=== PATIENT | male | born 1985 | race Caucasian/White ===

== ENCOUNTER 2018-12-22 08:54 | Emergency (ER) | payer SELFPAY ==
[2018-12-22] MEDS ORDERED: NA CHLORIDE 0.9% 1,000 ML ONE ×2 (09:15→09:22)
[2018-12-22] MEDS ORDERED: LORazepam 2 MG/ML VIAL ONE (09:15)
[2018-12-22 09:25] LABS: Absolute Lymphocytes (CBC) 1.5 K/uL (0.7-4.9); Absolute Monocytes 0.7 K/uL (0.1-1.3); Absolute Neutrophil 8.4 K/uL (1.8-8.0); Basophils % 0.4 % (0-1.3); Eosinophils % 0.4 % (0-4.4); Hematocrit 51.9 % (39.6-49.0); Lymphocytes % 14.3 % (15.3-44.8); MPV 8.9 fL (7.6-11.3); Monocytes % 6.9 % (3.3-12.3); RBC Red Blood Cell Count 5.76 M/uL (4.33-5.43)
[2018-12-22 09:28] LABS: Protime INR 1.1
[2018-12-22 09:45] LABS: ALT/SGPT 39 U/L (12-78); AST/SGOT 20 U/L (15-37); Albumin 4.4 g/dL (3.4-5.0); Alkaline Phosphatase 70 U/L (45-117); BUN Blood Urea Nitrogen 12 mg/dL (7-18); Bicarbonate 28 mmol/L (21-32); Bilirubin Direct 0.2 mg/dL (0-0.2); Bilirubin Total 0.8 mg/dL (0.2-1.0); Glucose Level 95 mg/dL (74-106); Potassium 4.1 mmol/L (3.5-5.1); Protein, Total 8.5 g/dL (6.4-8.2); Sodium Level 139 mmol/L (136-145); Troponin (Emerg Dept Use Only) < 0.02 ng/mL (0.0-0.045)
--- NOTE | 2018-12-22 10:46 | ER ---
Nurse's Notes [facility] Name: Subhash Diggs Age: 33 yrs Sex: Male : 1985 Arrival Date: 12/22/2018 Time: 08:57 Bed 16 Private MD: Diagnosis: Adverse effect of amphetamines Presentation: 12/22 08:58 Presenting complaint: EMS states: pt reports using METH at midnight, now complaining of tw2 jitteryness, joint tightness, indigestion, chest pain, pt is tachycardic with diaphoresis off and on. Transition of care: patient was not received from another setting of care. Onset of symptoms was December 22, 2018. Risk Assessment: Do you want to hurt yourself or someone else? Patient reports no desire to harm self or others. Initial Sepsis Screen: Does the patient meet any 2 criteria? RR > 20 per min. No. Patient's initial sepsis screen is negative. Does the patient have a suspected source of infection?. Care prior to arrival: None. 08:58 Method Of Arrival: EMS: [facility] tw2 08:58 Acuity: TRISTON 3 tw2 Historical: - Allergies: 09:02 No Known Allergies; tw2 - Home Meds: 09:02 None [Active]; tw2 - PMHx: 09:02 None; tw2 - PSHx: 09:02 None; tw2 - Immunization history:: Adult Immunizations unknown. - Social history:: Smoking status: Patient uses tobacco products, smokes one pack cigarettes per day. Patient uses alcohol, occasionally. street drugs, marijuana, Methamphetamine (Meth). - Ebola Screening: : Patient denies travel to an Ebola-affected area in the 21 days before illness onset. - Family history:: not pertinent. - Hospitalizations: : No recent hospitalization is reported. Screenin:06 Abuse screen: Denies threats or abuse. Nutritional screening: No deficits noted. tw2 Tuberculosis screening: No symptoms or risk factors identified. Fall Risk None identified. Assessment: 09:00 General: Appears in no apparent distress. obese, Behavior is cooperative, anxious. tw2 Pain: Complains of pain in chest, and joints Pain does not radiate. Pain began "few hours ago". Neuro: Level of Consciousness is awake, alert, obeys commands, Oriented to person, place, situation. Cardiovascular: Reports chest pain, Heart tones S1 S2 Patient's skin is warm and dry. Rhythm is sinus tachycardia. Respiratory: Airway is patent Respiratory effort is even, unlabored, Respiratory pattern is regular, symmetrical, Breath sounds are clear bilaterally. GI: Abdomen is round non-distended, obese, Bowel sounds present X 4 quads. : No signs and/or symptoms were reported regarding the genitourinary system. EENT: No signs and/or symptoms were reported regarding the EENT system. Derm: Skin is diaphoretic. Musculoskeletal: Range of motion: intact in all extremities. 10:03 Reassessment: Patient appears in no apparent distress at this time. Patient and/or tw2 family updated on plan of care and expected duration. Pain level reassessed. Patient is alert, oriented x 3, equal unlabored respirations, skin warm/dry/pink. Patient states feeling better. 10:44 Reassessment: pt wanting to leave, educated, pt pulled his iv out at this time, pts tw2 family taking pt home at this time, provider notified. Vital Signs: 08:59 BP 148 / 91; Pulse 107; Resp 25; Temp 99.5(O); Pulse Ox 97% on R/A; tw2 10:02 BP 119 / 87; Pulse 94; Resp 17; Pulse Ox 97% on R/A; tw2 ED Course: 08:57 Patient arrived in ED. tw2 08:58 Placed in gown. Bed in low position. Side rails up X2. ui ux web developer on. Pulse ox on. tw2 NIBP on. 08:59 Triage completed. tw2 09:00 Patient maintains SpO2 saturation greater than 95% on room air. tw2 09:02 Kaz Bone MD is Attending Physician. rn 09:07 Larisa Alves RN is Primary Nurse. tw2 09:07 Arm band placed on. tw2 09:10 Inserted saline lock: 20 gauge in left antecubital area, using aseptic technique. tw2 ,using aseptic technique. per Caroline Canela Blood collected. Administered Medications: 09:15 Drug: NS 0.9% 1000 ml Route: IV; Rate: 1000 ml; Site: left antecubital; tw2 10:45 Follow up: IV Status: Order to discontinue infusion; IV Intake: 500ml tw2 09:15 Drug: Ativan 1 mg Route: IVP; Site: left antecubital; tw2 10:43 Follow up: Response: No adverse reaction tw2 09:15 Drug: NS 0.9% 1000 ml Route: IV; Rate: 1000 ml; Site: left antecubital; tw2 10:45 Follow up: IV Status: Order to discontinue infusion; IV Intake: 500ml tw2 Intake: 10:45 IV: 500ml; Total: 500ml. tw2 10:45 IV: 500ml; Total: 1000ml. tw2 Outcome: 10:44 AMA AMA form signed 2 10:44 Condition: stable 10:46 Patient left the ED. tw2 Signatures: Kaz Bone MD MD rn Wise, Tara, RN RN tw2
--- NOTE | 2018-12-22 10:47 | EDPHYS ---
Physician Documentation [facility] Name: Subhash Diggs Age: 33 yrs Sex: Male : 1985 Arrival Date: 12/22/2018 Time: 08:57 Bed 16 Private MD: ED Physician Kaz Bone HPI: 12/22 09:07 This 33 yrs old Male presents to ER via EMS with complaints of palpitations. rn 09:07 The patient presents with a history of heart racing. Onset: The symptoms/episode rn began/occurred at 12:00. Duration: The patient or guardian reports a single episode, that is still ongoing. Modifying factors: The symptoms are aggravated by nothing. The symptoms are alleviated by nothing. Severity of symptoms: At their worst the symptoms were mild in the emergency department the symptoms are unchanged. It is unknown whether or not the patient has had similar symptoms in the past. Per EMS report, thought was being pulled over, ingested under a gram of meth, around midnight, and reports heart racing and tremors. Denies other drug use or ingestion, reports has used more than that amount before but not at once. . Historical: - Allergies: 09:02 No Known Allergies; tw2 - Home Meds: 09:02 None [Active]; tw2 - PMHx: 09:02 None; tw2 - PSHx: 09:02 None; tw2 - Immunization history:: Adult Immunizations unknown. - Social history:: Smoking status: Patient uses tobacco products, smokes one pack cigarettes per day. Patient uses alcohol, occasionally. street drugs, marijuana, Methamphetamine (Meth). - Ebola Screening: : Patient denies travel to an Ebola-affected area in the 21 days before illness onset. - Family history:: not pertinent. - Hospitalizations: : No recent hospitalization is reported. ROS: 09:07 Constitutional: Negative for fever, chills, and weight loss, Eyes: Negative for injury, rn pain, redness, and discharge, Cardiovascular: Negative for edema Respiratory: Negative for shortness of breath, cough, wheezing, and pleuritic chest pain, Abdomen/GI: Negative for abdominal pain, nausea, vomiting, diarrhea, and constipation, MS/Extremity: Negative for injury and deformity, Skin: Negative for injury, rash, and discoloration, Neuro: Negative for headache, weakness, numbness, tingling, and seizure. Exam: 09:07 Constitutional: This is a well developed, well nourished patient who is awake, alert, rn agitated, diaphoretic Head/Face: Normocephalic, atraumatic. Eyes: Pupils equal round and reactive to light, extra-ocular motions intact. Lids and lashes normal. Conjunctiva and sclera are non-icteric and not injected. Cornea within normal limits. Periorbital areas with no swelling, redness, or edema. ENT: dry MM Cardiovascular: tachycardic, regular, no murmur Respiratory: Lungs have equal breath sounds bilaterally, clear to auscultation, mild tachypnea, clear Abdomen/GI: Soft, non-tender, with normal bowel sounds. No distension or tympany. No guarding or rebound. No evidence of tenderness throughout. Skin: Warm, diaphoretic MS/ Extremity: Pulses equal, no cyanosis. Neurovascular intact. Full, normal range of motion. Equal circumference. Neuro: Awake and alert, GCS 15, oriented to person, place, time, and situation. Cranial nerves II-XII grossly intact. Motor strength 5/5 in all extremities. Sensory grossly intact. Cerebellar exam normal. 09:13 ECG was reviewed by the Attending Physician. rn Vital Signs: 08:59 BP 148 / 91; Pulse 107; Resp 25; Temp 99.5(O); Pulse Ox 97% on R/A; tw2 10:02 BP 119 / 87; Pulse 94; Resp 17; Pulse Ox 97% on R/A; tw2 MDM: 09:02 Patient medically screened. rn 10:18 ED course: pt feels much better, advised further observation, he is trying to leave. . rn 10:44 Differential diagnosis: dehydration, stimulant abuse/ingestion. Data reviewed: vital rn signs, nurses notes, lab test result(s), EKG, and as a result, I will continue to observe the patient. Counseling: I had a detailed discussion with the patient and/or guardian regarding: the historical points, exam findings, and any diagnostic results supporting the discharge/admit diagnosis, lab results. Response to treatment: the patient's condition has returned to base line, the patient is now symptom free. ED course: Pt refuses continued observation, states feels fine, no longer diaphoretic, normal vitals, walked out because did not agree with plan.. 12/22 09:02 Order name: Acetaminophen rn 12/22 09:02 Order name: Basic Metabolic Panel rn 12/22 09:02 Order name: CBC with Diff; Complete Time: 09:43 rn 12/22 09:02 Order name: Hepatic Function rn 12/22 09:02 Order name: PT-INR; Complete Time: 09:43 rn 12/22 09:02 Order name: Salicylate; Complete Time: 09:43 rn 12/22 09:02 Order name: Urine Drug Screen rn 12/22 09:02 Order name: EKG; Complete Time: 09:03 rn 12/22 09:04 Order name: Troponin (emerg Dept Use Only) rn 12/22 10:44 Order name: Urine Dipstick--Ancillary (enter results) 12/22 09:02 Order name: EKG - Nurse/Tech; Complete Time: 09:04 rn 12/22 09:02 Order name: IV Saline Lock; Complete Time: 09:16 rn 12/22 09:02 Order name: Labs collected and sent; Complete Time: 09:16 rn 12/22 09:02 Order name: Urine Dipstick-Ancillary (obtain specimen); Complete Time: 10:44 rn EC:13 Rate is 105 beats/min. Rhythm is regular. QRS Lester is Normal. MO interval is normal. rn QRS interval is normal. QT interval is normal. No Q waves. T waves are Normal. No ST changes noted. Clinical impression: Sinus tachycardia. Interpreted by me. Administered Medications: 09:15 Drug: NS 0.9% 1000 ml Route: IV; Rate: 1000 ml; Site: left antecubital; tw2 10:45 Follow up: IV Status: Order to discontinue infusion; IV Intake: 500ml tw2 09:15 Drug: Ativan 1 mg Route: IVP; Site: left antecubital; tw2 10:43 Follow up: Response: No adverse reaction tw2 09:15 Drug: NS 0.9% 1000 ml Route: IV; Rate: 1000 ml; Site: left antecubital; tw2 10:45 Follow up: IV Status: Order to discontinue infusion; IV Intake: 500ml tw2 Disposition: 12/22/18 10:45 Patient left the facility after being seen by provider. Preliminary diagnosis is Adverse effect of amphetamines. - Patient left due to feeling better. - Condition is Stable. Signatures: Dispatcher [employer] Kaz Jones MD MD rn Wise, Tara, RN RN tw2 Corrections: (The following items were deleted from the chart) 10:46 10:45 12/22/2018 10:45 Patient left the facility after being seen by provider. tw2 Preliminary diagnosis is Adverse effect of amphetamines. Reason stated they are leaving due to feeling better. Condition is Stable. rn
[2018-12-22 10:49] LABS: Urine Blood TRACE (NEG); Urine Glucose NEGATIVE (NEG); Urine Protein 1+ (NEG); Urine pH 5.5 (5.0-7.0)
[2018-12-22 10:50] VITALS: TEMP 99.5; O2SAT 97
[2018-12-22 10:52] VITALS: BP 119/87
[2018-12-22 10:58] LABS: Barbiturates NEGATIVE (NEGATIVE); Benzodiazepines NEGATIVE (NEGATIVE); Cocaine NEGATIVE (NEGATIVE); METHAMPHETAM POSITIVE (NEGATIVE); Methadone NEGATIVE (NEGATIVE); Opiates NEGATIVE (NEGATIVE); Phencyclidine NEGATIVE (NEGATIVE); THC Cannibis NEGATIVE (NEGATIVE)
--- NOTE | 2018-12-23 12:28 | EKG ---
Test Date: 2018-12-22 Test Time: 09:01:06 Deployment Specialist: MEASUREMENT RESULTS: Intervals: Rate: 105 IL: 180 QRSD: 80 QT: 326 QTc: 430 Chloe: P: 55 IL: 180 QRS: 57 T: 46 INTERPRETIVE STATEMENTS: Sinus tachycardia Otherwise normal ECG Compared to ECG 11/08/2010 08:25:41 Sinus rhythm no longer present Sinus arrhythmia no longer present Electronically Signed On 12-23-18 12:24:44 CDT by Joseph Eng
== END 2018-12-22 10:46 | disposition left against medical advice (07) ==
LOC: ER 08:54
DX: R00.2 Palpitations (principal); F17.210 Nicotine dependence, cigarettes, uncomplicated; Z53.29 Procedure and treatment not carried out because of patient's decision for other reasons
CPT/HCPCS: 36415; 80048; 80076; 80307; 80329; 81003; 84484; 85025; 85610; 93005; 96361; 96374; 99285; J7030

== ENCOUNTER 2019-05-31 09:24 | Inpatient (IN) | payer SELFPAY ==
[2019-05-31 10:58] LABS: Absolute Lymphocytes (CBC) 2.3 K/uL (0.7-4.9); Basophils % 0.6 % (0-1.3); Hematocrit 45.9 % (39.6-49.0); Lymphocytes % 18.3 % (15.3-44.8); MPV 9.1 fL (7.6-11.3); RBC Red Blood Cell Count 5.02 M/uL (4.33-5.43)
[2019-05-31 11:00] LABS: ALT/SGPT 27 U/L (12-78); AST/SGOT 16 U/L (15-37); Albumin 3.2 g/dL (3.4-5.0); Alkaline Phosphatase 85 U/L (45-117); BUN Blood Urea Nitrogen 13 mg/dL (7-18); Bicarbonate 31 mmol/L (21-32); Bilirubin Total 0.4 mg/dL (0.2-1.0); Glucose Level 102 mg/dL (74-106); Potassium 3.9 mmol/L (3.5-5.1); Protein, Total 6.7 g/dL (6.4-8.2); Sodium Level 141 mmol/L (136-145)
--- NOTE | 2019-05-31 11:35 | RAD REPORT ---
EXAM DESCRIPTION: USEino Venous [employer]05/31/2019 10:48 am CLINICAL HISTORY: Right leg pain and swelling. COMPARISON: None. FINDINGS: Echogenic material consistent with acute thrombus is present within the mid right superfic ial femoral vein extending into the right popliteal vein. The veins are not compressible. There is mi nimal blood flow. Right common femoral vein is patent IMPRESSION: Acute thrombus within the right superficial femoral and right popliteal veins
--- NOTE | 2019-05-31 12:23 | RAD REPORT ---
EXAM DESCRIPTION: CT - Chest For Pe Angio - 05/31/2019 12:00 pm CLINICAL HISTORY: Acute DVT shortness of breath COMPARISON: CT HEAD SPINE CAP W CONTRAST dated 04/06/2012; CTANGIO CHEST FOR PE dated 11/08/2010; Extr emity Venous [employer] dated 05/31/2019 TECHNIQUE: Dynamically enhanced 3 mm thick images of the chest were obtained during administration o f approximately 150mL Isovue 370 IV contrast. Coronal and oblique MIP reconstruction images were gene rated and reviewed. Exam utilizes a protocol to evaluate the pulmonary arterial tree. All CT scans are performed using dose optimization technique as appropriate and may include automated exposure control or mA/KV adjustment according to patient size. FINDINGS: Pulmonary emboli present at the origin of the right upper lobe. There is a large embolus p resent at the junction of the right pulmonary artery with the right lower lobe and right middle lobe artery's. Right middle lobe embolic disease extends into the segmental branches. Right lower lobe emb olic disease also extends into segmental and subsegmental branches. There is are small subsegmental b ranch emboli in medial left lower lobe branches. No saddle embolus seen. The aorta as imaged shows no acute or suspicious finding. No pericardial thickening or effusion. No infiltrate or mass in the lung parenchyma. No pleural effusion or pleural thickening. No mediastinal or hilar suspicious masses. No chest wall masses or abnormal axillary lymphadenopathy. IMPRESSION: Extensive pulmonary embolic disease involving the right middle lobe and right lower lobe segmental and subsegmental branches. Small subsegmental branch pulmonary emboli in the medial left lower lobe. No other significant or suspicious findings.
--- NOTE | 2019-05-31 12:56 | ER ---
Nurse's Notes [facility] Name: Subhash Diggs Age: 34 yrs Sex: Male : 1985 Arrival Date: 05/31/2019 Time: 09:28 Bed 7 Private MD: Diagnosis: Pulmonary embolism;DVT Presentation: 05/31 09:44 Presenting complaint: Patient states: pain behind R knee and R lower leg swelling that ss began 2 days ago. Patient reports a history of DVT. Transition of care: patient was not received from another setting of care. Onset of symptoms was May 29, 2019. Risk Assessment: Do you want to hurt yourself or someone else? Patient reports no desire to harm self or others. Initial Sepsis Screen: Does the patient meet any 2 criteria? No. Patient's initial sepsis screen is negative. Does the patient have a suspected source of infection? No. Patient's initial sepsis screen is negative. Care prior to arrival: None. 09:44 Method Of Arrival: Ambulatory ss 09:44 Acuity: TRISTON 3 ss Historical: - Allergies: 09:45 No Known Allergies; ss - Home Meds: 09:45 None [Active]; ss - PMHx: 09:45 DVT; ss - PSHx: 09:45 None; ss - Immunization history:: Adult Immunizations up to date. - Social history:: Smoking status: Patient uses tobacco products, smokes one pack cigarettes per day. - Ebola Screening: : Patient denies exposure to infectious person Patient denies travel to an Ebola-affected area in the 21 days before illness onset. Screenin:30 Abuse screen: Denies threats or abuse. Denies injuries from another. Nutritional sv screening: No deficits noted. Tuberculosis screening: No symptoms or risk factors identified. Fall Risk None identified. Assessment: 10:30 General: Appears in no apparent distress. comfortable, obese, well developed, Behavior sv is cooperative, restless. Pain: Complains of pain in posterior aspect of right knee and right calf Pain currently is 8 out of 10 on a pain scale. Quality of pain is described as throbbing, Pain began 1 day ago. Is intermittent, Aggravated by increased activity, weight bearing. Neuro: Level of Consciousness is awake, alert, obeys commands, Oriented to person, place, time, situation, Moves all extremities. Full function. Respiratory: Airway is patent Respiratory effort is even, unlabored, Respiratory pattern is regular, symmetrical. Derm: Skin is normal, reddened in the face. Musculoskeletal: Range of motion: intact in all extremities, Reports RLE swelling. 11:42 Reassessment: Patient appears in no apparent distress at this time. No changes from sv previously documented assessment. Patient and/or family updated on plan of care and expected duration. Pain level reassessed. Patient is alert, oriented x 3, equal unlabored respirations, skin warm/dry/pink. Vital Signs: 09:45 BP 133 / 81; Pulse 75; Resp 17; Temp 98.4(TE); Pulse Ox 96% on R/A; Weight 127.01 kg; ss Height 6 ft. 1 in. (185.42 cm); Pain 8/10; 10:15 BP 117 / 79; Pulse 80; Resp 18; Pulse Ox 97% ; sv 11:37 Pulse 63; Resp 18; Pulse Ox 99% ; sv 12:08 BP 115 / 46; Pulse 64; Resp 20; Pulse Ox 100% ; sv 14:44 BP 112 / 50; Pulse 66; Resp 18 S; Temp 98.4; Pulse Ox 100% on R/A; sg 09:45 Body Mass Index 36.94 (127.01 kg, 185.42 cm) ED Course: 09:28 Patient arrived in ED. cf2 09:44 Triage completed. 09:45 Arm band placed on right wrist. 10:07 Blayne Javier PA is PHCP. [facility] 10:07 Barney Steel MD is Attending Physician. [facility] 10:23 Keyana Rushing RN is Primary Nurse. sv 10:30 Patient has correct armband on for positive identification. Bed in low position. Call sv light in reach. Pulse ox on. NIBP on. Door closed. Head of bed elevated. 10:33 Missed attempt(s): 20 gauge in right antecubital area. Bleeding controlled, band aid sv applied, catheter tip intact. 10:35 Initial lab(s) drawn, by me, sent to lab. Inserted saline lock: 22 gauge in left sv antecubital area, using aseptic technique. ,using aseptic technique. diffusics Blood collected. Flushed left antecubital with 5 ml normal saline. 10:38 Patient taken to ultrasound. via wheelchair. sv 10:49 US Extremity Venous Unilateral Ltd In Process Unspecified. EDMS 10:49 Awaiting lab results, Awaiting radiology results. Awaiting re-evaluation by ER provider.sv 11:39 Awaiting radiology results. Awaiting re-evaluation by ER provider. sv 11:[address] Scan. sv 12:04 CT Chest For PE Angio In Process Unspecified. EDMS 12:53 Jhoan Saab DO is Hospitalizing Provider. dar Administered Medications: 13:37 Drug: Lovenox 1 mg/kg Route: Sub-Q; Site: right lower abdomen; sv Outcome: 12:55 Decision to Hospitalize by Provider. maria a 15:08 Patient left the ED. sg Signatures: Dispatcher [employer] Keyana Gonzalez, RN WALDEMAR Franklyn Barnhart RN RN Blayne Javier PA PA jmm Smirch, Shelby, RN RN Quirino Bates cf2
--- NOTE | 2019-05-31 12:57 | EDPHYS ---
Physician Documentation [facility] Name: Subhash Diggs Age: 34 yrs Sex: Male : 1985 Arrival Date: 05/31/2019 Time: 09:28 Bed 7 Private MD: ED Physician Barney Steel HPI: 05/31 09:44 This 34 yrs old Male presents to ER via Ambulatory with complaints of Feet jmm Swelling - toe swelling. 09:44 The patient presents with pain, that is acute, swelling. Onset: The symptoms/episode jmm began/occurred 2 day(s) ago. Modifying factors: The symptoms are alleviated by nothing. the symptoms are aggravated by nothing. Associated signs and symptoms: Pertinent positives: swelling, warmth, Pertinent negatives fever. This is a 34 year old male with a history of DVT that presents to the ED with complaints of right lower leg pain and swelling. Patient denies chest pain but states having shortness of breath on exertion. . Historical: - Allergies: 09:45 No Known Allergies; ss - Home Meds: 09:45 None [Active]; ss - PMHx: 09:45 DVT; ss - PSHx: 09:45 None; ss - Immunization history:: Adult Immunizations up to date. - Social history:: Smoking status: Patient uses tobacco products, smokes one pack cigarettes per day. - Ebola Screening: : Patient denies exposure to infectious person Patient denies travel to an Ebola-affected area in the 21 days before illness onset. ROS: 09:44 Constitutional: Negative for fever, chills, and weight loss, Cardiovascular: Negative jmm for chest pain, palpitations, and edema. 09:44 Respiratory: Positive for shortness of breath. 09:44 MS/extremity: Positive for swelling. 09:44 All other systems are negative. Exam: 09:44 Constitutional: This is a well developed, well nourished patient who is awake, alert, jmm and in no acute distress. Head/Face: atraumatic. Eyes: EOMI, no conjunctival erythema appreciated ENT: Moist Mucus Membranes Neck: Trachea midline, Supple Chest/axilla: Normal chest wall appearance and motion. Cardiovascular: Regular rate and rhythm. No edema appreciated Respiratory: Normal respirations, no respiratory distress appreciated Abdomen/GI: Non distended, soft Back: Normal ROM 09:44 Musculoskeletal/extremity: swelling noted to the left lower extremity. 09:44 Skin: mild erythema noted to the right lower leg. 09:44 Neuro: Orientation: is normal, Mentation: is normal, Memory: is normal. 09:44 Psych: Behavior/mood is pleasant, cooperative. Vital Signs: 09:45 BP 133 / 81; Pulse 75; Resp 17; Temp 98.4(TE); Pulse Ox 96% on R/A; Weight 127.01 kg; ss Height 6 ft. 1 in. (185.42 cm); Pain 8/10; 10:15 BP 117 / 79; Pulse 80; Resp 18; Pulse Ox 97% ; sv 11:37 Pulse 63; Resp 18; Pulse Ox 99% ; sv 12:08 BP 115 / 46; Pulse 64; Resp 20; Pulse Ox 100% ; sv 14:44 BP 112 / 50; Pulse 66; Resp 18 S; Temp 98.4; Pulse Ox 100% on R/A; sg 09:45 Body Mass Index 36.94 (127.01 kg, 185.42 cm) MDM: 10:08 Patient medically screened. [facility] 12:52 Data reviewed: vital signs, nurses notes. Counseling: I had a detailed discussion with maria a the patient and/or guardian regarding: the historical points, exam findings, and any diagnostic results supporting the discharge/admit diagnosis, radiology results, the need for further work-up and treatment in the hospital. ED course: I discussed the patient with Dr. Saab whom will accepted the patient for admission. . 05/31 10:13 Order name: CBC with Diff; Complete Time: 11:09 [facility] 05/31 10:13 Order name: CMP; Complete Time: 11:09 [facility] 05/31 10:15 Order name: US Extremity Venous Unilateral Ltd; Complete Time: 11:41 [facility] 05/31 11:42 Order name: CT Chest For PE Angio; Complete Time: 12:32 [facility] 05/31 12:03 Order name: PT-INR; Complete Time: 13:28 [facility] 05/31 12:49 Order name: Troponin (emerg Dept Use Only); Complete Time: 13:28 [facility] 05/31 10:13 Order name: Saline Lock; Complete Time: 10:43 [facility] 05/31 12:49 Order name: EKG - Nurse/Tech; Complete Time: 13:37 [facility] 05/31 12:51 Order name: EKG; Complete Time: 12:52 sv 05/31 12:52 Order name: Echo w/ Doppler [facility] Administered Medications: 13:37 Drug: Lovenox 1 mg/kg Route: Sub-Q; Site: right lower abdomen; sv Disposition: 15:24 Co-signature as Attending Physician, Barney Steel MD I agree with the assessment and naldo plan of care. Disposition: 05/31/19 12:55 Hospitalization ordered by Jhoan Saab for Inpatient Admission. Preliminary diagnosis are Pulmonary embolism, DVT. - Bed requested for Telemetry/MedSurg (observation). - Status is Inpatient Admission. sg - Condition is Stable. - Problem is new. - Symptoms are unchanged. UTI on Admission? No Signatures: Dispatcher [employer] EDMS Keyana Rushing RN WALDEMAR Franklyn Barnhart RN RN sg Anderson, Corey, MD MD cha Mickail, Joel, PA PA jm Lita Gomez RN RN Veronica Monge formerly [facility] Corrections: (The following items were deleted from the chart) 13:26 12:55 Hospitalization Ordered by Jhoan Saab DO for Observation. Preliminary [facility] diagnosis is Pulmonary embolism; DVT. Bed requested for Telemetry/MedSurg (observation). Status is Observation. Condition is Stable. Problem is new. Symptoms are unchanged. UTI on Admission? No. [facility] 14:29 13:26 05/31/2019 12:55 Hospitalization Ordered by Jhoan Saab DO for Inpatient formerly [facility] Admission. Preliminary diagnosis is Pulmonary embolism; DVT. Bed requested for Telemetry/MedSurg (observation). Status is Inpatient Admission. Condition is Stable. Problem is new. Symptoms are unchanged. UTI on Admission? No. [facility] 15:08 14:29 05/31/2019 12:55 Hospitalization Ordered by Jhoan Saab DO for Inpatient Admission. Preliminary diagnosis is Pulmonary embolism; DVT. Bed requested for Telemetry/MedSurg (observation). Status is Inpatient Admission. Condition is Stable. Problem is new. Symptoms are unchanged. UTI on Admission? No. 3
[2019-05-31 13:03] LABS: Protime INR 0.98
[2019-05-31] MEDS ORDERED: ENOXAPARIN 30 MG/0.3 ML SQ ONE (13:27)
[2019-05-31] MEDS ORDERED: ENOXAPARIN 100 MG/ML SYR SQ ONE (13:27)
[2019-05-31] MEDS ORDERED: NICOTINE 21 MG/PAT TD ONE (13:27)
--- NOTE | 2019-05-31 13:43 | EKG ---
Test Date: 2019-05-31 Test Time: 12:55:03 Test Specialist: TERRY MEASUREMENT RESULTS: Intervals: Rate: 51 IL: 202 QRSD: 82 QT: 444 QTc: 409 Jerome: P: 32 IL: 202 QRS: 12 T: 45 INTERPRETIVE STATEMENTS: Sinus bradycardia Otherwise normal ECG Compared to ECG 12/22/2018 09:01:06 Sinus tachycardia no longer present Electronically Signed On 05-31-19 13:43:04 CDT by Jude Lemus
--- NOTE | 2019-05-31 14:23 | P.HP ---
Certification for Inpatient Patient admitted to: Inpatient With expected LOS: >2 Midnights Patient will require the following post-hospital care: None Practitioner: I am a practitioner with admitting privileges, knowledge of patient current condition, hospital course, and medical plan of care. Services: Services provided to patient in accordance with Admission requirements found in Title 42 Section 412.3 of the Code of Federal Regulations Patient History Date of Service: 05/31/19 Primary Care Provider: none Reason for admission: Right lower extremity swelling History of Present Illness: 34-year-old male with history of DVT in 2010 presented to the emergency room with right lower extremity swelling. Patient reports increased right lower extremity swelling. He denies any fever, chills, chest pain, and shortness of breath. Patient has been sedentary. No recent travel. Patient admits to tobacco use and recent methamphetamine use. In the ER patient evaluated. Patient found to have right lower extremity DVT. CT scan revealed extensive pulmonary embolic disease involving the right middle lobe and right lower lobe segmental and subsegmental branches. Small sub segmental branch pulmonary emboli in the medial left lower lobe noted. On lab white count 12.8, hemoglobin 15. Sodium 141, potassium 3.9. Glucose 102. GFR greater than 90. Patient stable at this time. Patient will be admitted for further evaluation and treatment. When I saw the patient in the ER, father at bedside. Patient with some anxiety. Patient reports history of DVT in the past. Previous records show DVT in 2010. He reports at that time he was given Coumadin due to lack of financial resources. He admits being in the hospital for several days and sent home on Coumadin. He took Coumadin for only a week after he had gotten lab work and told to hold the medication. It appears that he never took medication thereafter. He also never followed up with anybody after that time. Home medications list reviewed: Yes - Past Medical/Surgical History Diabetic: No -: History of DVT 2011 non compliant with medication and follow up -: Tobacco abuse -: Amphetamine abuse Past Surgical History: Patient denies surgical history Psychosocial/ Personal History: Patient is single. He has 1 child. 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 - Family History Father -: Hypertension - Social History Smoking Status: Heavy Tobacco smoker (>10 cigarettes/day) Counseled patient to stop smoking for: less than 10 minutes Smoking therapy provided: Yes Patient receptive to therapy: Yes Alcohol use: No CD- Drugs: Yes Caffeine use: Yes Place of Residence: Home Review of Systems General: As per HPI Eyes: Unremarkable ENT: Unremarkable Respiratory: Unremarkable Cardiovascular: Edema, As per HPI Gastrointestinal: Unremarkable Genitourinary: Unremarkable Musculoskeletal: Pedal edema, As per HPI Integumentary: As per HPI Neurological: Unremarkable Lymphatics: Unremarkable Physical Examination - Physical Exam General: Alert, In no apparent distress, Oriented x3, Cooperative HEENT: Atraumatic, Normocephalic, PERRLA, Mucous membr. moist/pink, EOMI Neck: Supple, No Thyromegaly Respiratory: Clear to auscultation bilaterally, Normal air movement Cardiovascular: Normal pulses, Regular rate/rhythm Gastrointestinal: Normal bowel sounds, Soft and benign, Non-distended, No ascites, No tenderness, No masses, No rebound, No guarding Musculoskeletal: No erythema, No tenderness, No warmth Integumentary: No erythema, No warmth, No cyanosis, Tenderness/swelling (to the right lower ext. ) Neurological: Normal speech, Normal strength at 5/5 x4 extr, Normal tone, Normal affect - Studies Laboratory Data (last 24 hrs) 05/31/19 10:30: PT 11.6, INR 0.98 05/31/19 10:30: Sodium 141, Potassium 3.9, BUN 13, Creatinine 0.90, Glucose 102 , Total Bilirubin 0.4, AST 16, ALT 27, Alkaline Phosphatase 85 05/31/19 10:30: WBC 12.8 H, Hgb 15.2, Hct 45.9, Plt Count 174 Assessment and Plan - Plan Impression: Right lower extremity swelling and pain secondary to right lower extremity DVT and bilateral pulmonary emboli with history of right lower extremity DVT with poor follow up and compliance Tobacco abuse Methamphetamine abuse Plan: Right lower extremity swelling and pain secondary to right lower extremity DVT and extensive bilateral pulmonary emboli with history of right lower extremity DVT with poor follow up and compliance: Patient will be admitted for further evaluation and treatment. Previous records reviewed. Patient without financial resources. Will obtain echocardiogram to evaluate for heart strain. Consult pulmonology for further recommendation and treatment. Will maintain sats above 90%. Will start Lovenox at 1 milligram/kilogram subcu twice daily. Will also start Coumadin 5 mg at night as the patient may not be able to afford new medication like Eliquis/Xarelto. Patient will likely remain in the hospital until INR therapeutic between 2 and 3. Will consult social media editor to help in finding possible resources. Will also need to get their help to have patient establish care with a PCP in the area so the patient can follow up and be monitored on Coumadin as an outpatient. Anticipate discharge in the next 3- 5 days pending therapeutic INR. I will turn the service over to Dr. Fox tomorrow. I will go over the plan of care with her. Tobacco abuse: Will provide nicotine patch. Patient understands that he cannot go outside to smoke. Continued tobacco cessation education. Methamphetamine abuse: Patient admits methamphetamine abuse. Will check urine drug screen to confirm. Will provide medication for anxiety. Discharge Plan: Home Plan to discharge in: Greater than 2 days - Advance Directives Does patient have a Living Will: No Does patient have a Durable POA for Healthcare: No - Code Status/Comfort Care Code Status Assessed: Yes (Patient is full code) Time Spent Managing Pts Care (In Minutes): 55
[2019-05-31] MEDS ORDERED: ONDANSETRON 4 MG/2 ML VIAL IV PRN (14:51)
[2019-05-31] MEDS ORDERED: LORazepam 2 MG/ML VIAL IV PRN (14:51)
[2019-05-31] MEDS ORDERED: ACETAMINOPHEN 650MG/RECT SUPP PR PRN (14:51)
[2019-05-31 15:06] VITALS: BMI 33.0
[2019-05-31] MEDS: WARFARIN SODIUM 5 MG TAB PO SCH (17:03)
[2019-05-31] MEDS: NICOTINE 21 MG/PAT TD SCH (17:03)
[2019-05-31] MEDS: Enoxaparin 120 MG/0.8 ML SYR SQ SCH (21:36)
[2019-05-31 23:26] LABS: Barbiturates NEGATIVE (NEGATIVE); Benzodiazepines NEGATIVE (NEGATIVE); Cocaine NEGATIVE (NEGATIVE); METHAMPHETAM NEGATIVE (NEGATIVE); Methadone NEGATIVE (NEGATIVE); Opiates NEGATIVE (NEGATIVE); Phencyclidine NEGATIVE (NEGATIVE); THC Cannibis POSITIVE (NEGATIVE)
[2019-06-01 06:23] LABS: Absolute Lymphocytes (CBC) 2.9 K/uL (0.7-4.9); Basophils % 0.8 % (0-1.3); Hematocrit 42.8 % (39.6-49.0); Lymphocytes % 31.1 % (15.3-44.8); MPV 9.6 fL (7.6-11.3); RBC Red Blood Cell Count 4.73 M/uL (4.33-5.43)
[2019-06-01 06:41] LABS: BUN Blood Urea Nitrogen 9 mg/dL (7-18); Bicarbonate 28 mmol/L (21-32); Glucose Level 94 mg/dL (74-106); Magnesium 2.2 mg/dL (1.8-2.4); Potassium 3.5 mmol/L (3.5-5.1); Sodium Level 140 mmol/L (136-145)
[2019-06-01] MEDS: Enoxaparin 120 MG/0.8 ML SYR SQ SCH ×2 (08:31→21:08)
[2019-06-01] MEDS: NICOTINE 21 MG/PAT TD SCH (08:32)
--- NOTE | 2019-06-01 10:28 | P.CNS ---
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 He has 1 child. 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 - Family History Father Medical History: Hypertension - Social History Smoking Status: Current every day smoker Alcohol use: No CD- Drugs: Yes Caffeine use: Yes Place of Residence: Home Review of Systems 10-point ROS is otherwise unremarkable Physical Examination Temp Pulse Resp BP Pulse Ox 97.7 F 73 20 154/85 H 94 06/01/19 08:00 06/01/19 08:00 06/01/19 08:00 06/01/19 08:00 06/01/19 08:00 General: Oriented x3 Neck: Supple Respiratory: Clear to auscultation bilaterally Cardiovascular: No edema, Normal S1 S2 Musculoskeletal: Other (Patient's right calf is very swollen) Laboratory Data (last 24 hrs) 05/31/19 10:30: PT 11.6, INR 0.98 05/31/19 10:30: Sodium 141, Potassium 3.9, BUN 13, Creatinine 0.90, Glucose 102 , Total Bilirubin 0.4, AST 16, ALT 27, Alkaline Phosphatase 85 05/31/19 10:30: WBC 12.8 H, Hgb 15.2, Hct 45.9, Plt Count 174 - Problems (1) Deep vein thrombosis (DVT) with pulmonary embolism present on admission Current Visit: Yes Status: Acute Plan: Patient is 34 years of age presented with a recurrent DVT needs to be fully anti coagulated I have informed the patient and the present his father that he will need lifelong anticoagulation he has no insurance consider starting a man on warfarin will need to be followed up as an outpatient. I have advised him that he needs regular follow-ups recording blood works to determine therapeutic levels the wound would consider prescribing him Navin Mendez patient can find out how much it costs and a size with he Wanna take that route labs and CT scans all reviewed patient's oxygenation is stable
--- NOTE | 2019-06-01 15:18 | P.PN ---
Subjective Date of Service: 06/01/19 Primary Care Provider: none Chief Complaint: Right lower extremity swelling Subjective: No C/O voiced, Improving Review of Systems 10-point ROS is otherwise unremarkable Physical Examination - Vital Signs Temperature: 97.3 F Blood Pressure: 142/86 Pulse: 68 Respirations: 20 Pulse Ox (%): 95 - Physical Exam General: Alert, In no apparent distress, Oriented x3 HEENT: Atraumatic, PERRLA, EOMI Neck: Supple, JVD not distended Respiratory: Clear to auscultation bilaterally, Normal air movement Cardiovascular: Regular rate/rhythm, Normal S1 S2 Gastrointestinal: Normal bowel sounds, No tenderness Musculoskeletal: No tenderness Integumentary: No rashes Neurological: Normal speech, Normal tone, Normal affect Lymphatics: No axilla or inguinal lymphadenopathy Assessment And Plan - Current Problems (Diagnosis) (1) DVT (deep venous thrombosis) Current Visit: Yes Status: Acute Plan: Likely secondary to noncompliance on prior medications along with continued amphetamine use -Echocardiogram ordered to evaluate for heart strain. -pulmonology consulted. Recommendations appreciated. -maintain sats above 90%. -continue Lovenox at 1 milligram/kilogram subcu twice daily. Also continue Coumadin 5 mg at night as the patient may not be able to afford new medication like Eliquis/Xarelto. Patient will likely remain in the hospital until INR therapeutic between 2 and 3. Current INR 1.00 -social media content specialist to help in finding possible resources. Will also need to get their help to have patient establish care with a PCP in the area so the patient can follow up and be monitored on Coumadin as an outpatient. Qualifiers: DVT location: lower extremity Affected thrombotic vein of extremity: popliteal Chronicity: acute Laterality: right Qualified Code(s): I82.431 - Acute embolism and thrombosis of right popliteal vein (2) Pulmonary emboli Current Visit: Yes Status: Acute Plan: As above Qualifiers: Pulmonary embolism type: saddle Chronicity: acute Acute cor pulmonale presence: without acute cor pulmonale Qualified Code(s): I26.92 - Saddle embolus of pulmonary artery without acute cor pulmonale (3) Non compliance w medication regimen Current Visit: Yes Status: Acute (4) Tobacco abuse Current Visit: Yes Status: Chronic Plan: Continue nicotine patch -counseling on tobacco cessation has been provided to patient. (5) Methamphetamine abuse Current Visit: Yes Status: Chronic - Plan DVT prophylaxis: Treatment as above GI prophylaxis: None Diet: Heart healthy Disposition: Pending symptomatic improvement, therapeutic INR as well as set up for outpatient blood thinner medication/follow up. Discharge Plan: Home Plan to discharge in: 72 Hours
[2019-06-01] MEDS: WARFARIN SODIUM 5 MG TAB PO SCH (16:13)
[2019-06-01 16:23] LABS: Urine Appearance CLEAR; Urine Bilirubin NEGATIVE (NEG); Urine Blood NEGATIVE (NEG); Urine Color YELLOW; Urine Glucose NEGATIVE (NEG); Urine Protein NEGATIVE (NEG); Urine Specific Gravity <=1.005 (1.005-1.030)
[2019-06-01 16:27] LABS: Urine Microscopic Reflex ORDER UMIC
[2019-06-01 16:34] LABS: Urine Bacteria <20 /HPF (NONE SEEN); Urine Culture Reflex Order REFLEXED; Urine RBC <5 /HPF (NONE SEEN)
[2019-06-02 06:12] LABS: Absolute Lymphocytes (CBC) 2.6 K/uL (0.7-4.9); Basophils % 0.6 % (0-1.3); Hematocrit 45.2 % (39.6-49.0); Lymphocytes % 23.9 % (15.3-44.8); MPV 9.7 fL (7.6-11.3); Protime INR 1.11; RBC Red Blood Cell Count 4.96 M/uL (4.33-5.43)
[2019-06-02 06:18] LABS: BUN Blood Urea Nitrogen 6 mg/dL (7-18); Bicarbonate 28 mmol/L (21-32); Glucose Level 141 mg/dL (74-106); Magnesium 2.2 mg/dL (1.8-2.4); Potassium 3.5 mmol/L (3.5-5.1); Sodium Level 140 mmol/L (136-145)
[2019-06-02] MEDS: Enoxaparin 120 MG/0.8 ML SYR SQ SCH ×2 (08:45→20:58)
[2019-06-02] MEDS: NICOTINE 21 MG/PAT TD SCH (08:45)
--- NOTE | 2019-06-02 10:13 | P.PN ---
Subjective Date of Service: 06/02/19 Primary Care Provider: none Chief Complaint: Right lower extremity swelling Subjective: No C/O voiced, Improving Patient seen and examined at bedside. Chart reviewed and case discussed with nursing staff and Dr. Arvizu. Patient reports only tightness around his knee, improving. Denies and CP, sob, dizziness, WILLS, vision changes Review of Systems 10-point ROS is otherwise unremarkable Physical Examination - Vital Signs Temperature: 98.4 F Blood Pressure: 140/83 Pulse: 76 Respirations: 20 Pulse Ox (%): 93 - Physical Exam General: Alert, In no apparent distress, Oriented x3, Obese HEENT: Atraumatic, PERRLA, EOMI Neck: Supple, JVD not distended Respiratory: Clear to auscultation bilaterally, Normal air movement Cardiovascular: Regular rate/rhythm, Normal S1 S2 Gastrointestinal: Normal bowel sounds, No tenderness Musculoskeletal: No tenderness Integumentary: No rashes Neurological: Normal speech, Normal tone, Normal affect Lymphatics: No axilla or inguinal lymphadenopathy Assessment And Plan - Current Problems (Diagnosis) (1) DVT (deep venous thrombosis) Current Visit: Yes Status: Acute Plan: Likely secondary to noncompliance on prior medications along with continued amphetamine use -Echocardiogram ordered to evaluate for heart strain. -pulmonology consulted. Recommendations appreciated. -maintain sats above 90%. -continue Lovenox at 1 milligram/kilogram subcu twice daily. Also continue Coumadin 5 mg at night as the patient may not be able to afford new medication like Eliquis/Xarelto. Patient will likely remain in the hospital until INR therapeutic between 2 and 3. Current INR 1.12 -medical social worker to help in finding possible resources. Will also need to get their help to have patient establish care with a PCP in the area so the patient can follow up and be monitored on Coumadin as an outpatient. -Attempted to discuss with patient regarding importance of follow up but unsure if patient understands. He was not really wanting to communicate at this time. Qualifiers: DVT location: lower extremity Affected thrombotic vein of extremity: popliteal Chronicity: acute Laterality: right Qualified Code(s): I82.431 - Acute embolism and thrombosis of right popliteal vein (2) Pulmonary emboli Current Visit: Yes Status: Acute Plan: As above Qualifiers: Pulmonary embolism type: saddle Chronicity: acute Acute cor pulmonale presence: without acute cor pulmonale Qualified Code(s): I26.92 - Saddle embolus of pulmonary artery without acute cor pulmonale (3) Non compliance w medication regimen Current Visit: Yes Status: Acute (4) Tobacco abuse Current Visit: Yes Status: Chronic Plan: Continue nicotine patch -counseling on tobacco cessation has been provided to patient. (5) Methamphetamine abuse Current Visit: Yes Status: Chronic - Plan DVT prophylaxis: Treatment as above GI prophylaxis: None Diet: Heart healthy Disposition: Pending symptomatic improvement, therapeutic INR as well as set up for outpatient blood thinner medication/follow up. Discharge Plan: Home
[2019-06-02] MEDS: WARFARIN SODIUM 5 MG TAB PO SCH (16:09)
[2019-06-02] MEDS: ACETAMINOPHEN 500 MG TAB PO PRN (17:45)
[2019-06-03 04:20] LABS: Absolute Lymphocytes (CBC) 2.6 K/uL (0.7-4.9); Basophils % 0.7 % (0-1.3); Hematocrit 44.5 % (39.6-49.0); Lymphocytes % 22.6 % (15.3-44.8); MPV 9.1 fL (7.6-11.3); RBC Red Blood Cell Count 4.94 M/uL (4.33-5.43)
[2019-06-03 04:34] LABS: BUN Blood Urea Nitrogen 7 mg/dL (7-18); Bicarbonate 30 mmol/L (21-32); Glucose Level 112 mg/dL (74-106); Magnesium 2.2 mg/dL (1.8-2.4); Potassium 3.6 mmol/L (3.5-5.1); Protime INR 1.82; Sodium Level 140 mmol/L (136-145)
--- NOTE | 2019-06-03 08:26 | ECHO ---
HEIGHT: 6 ft 1 in WEIGHT: 250 lb 0 oz DATE OF STUDY: 05/31/[address]: JOSE RAMOS 2-DIMENSIONAL: YES M.MODE: YES DOPPLER: YES COLOR FLOW: YES TDS: NO PORTABLE: NO DEFINITY: NO BUBBLE STUDY: NO DIAGNOSIS: PULMONARY EMBOLISM CARDIAC HISTORY: CATHERIZATION: NO SURGERY: NO PROSTHETIC VALVE: NO PACEMAKER: NO MEASUREMENTS (cm) DIASTOLIC (NORMALS) SYSTOLIC (NORMALS) IVSd 0.9 (0.6-1.2) LA Diam 3.4 (1.9-4.0) LVEF 68% LVIDd 6.1 (3.5-5.7) LVIDs 3.7 (2.0-3.5) %FS 39% LVPWd 1.0 (0.6-1.2) Ao Diam 3.5 (2.0-3.7) 2 DIMENSIONAL ASSESSMENT: RIGHT ATRIUM: NORMAL LEFT ATRIUM: NORMAL RIGHT VENTRICLE: NORMAL LEFT VENTRICLE: NORMAL TRICUSPID VALVE: NORMAL MITRAL VALVE: NORMAL PULMONIC VALVE: NORMAL AORTIC VALVE: NORMAL PERICARDIAL EFFUSION: NONE AORTIC ROOT: NORMAL LEFT VENTRICULAR WALL MOTION: NORMAL. DOPPLER/COLOR FLOW: TRACE OF MITRAL REGURGITATION. COMMENTS: NORMAL 2D ECHO. TRACE OF MITRAL REGURGITATION. TECHNOLOGIST: ESTHER GRAY
[2019-06-03 08:46] VITALS: O2SAT 93
[2019-06-03] MEDS: Enoxaparin 120 MG/0.8 ML SYR SQ SCH (09:37)
[2019-06-03] MEDS: NICOTINE 21 MG/PAT TD SCH (09:38)
[2019-06-03] MEDS: ACETAMINOPHEN 500 MG TAB PO PRN (09:39)
[2019-06-03 12:50] VITALS: BP 141/76; TEMP 97.9
--- NOTE | 2019-06-03 17:06 | P.DS ---
Admission Date: 05/31/19 Discharge Date: 06/03/19 Primary Care Provider: none Disposition: ROUTINE DISCHARGE Discharge Condition: GOOD Reason for Admission: Right lower extremity swelling Consultations: Pulmonology Procedures: Non - Problems (1) DVT (deep venous thrombosis) Status: Acute Qualifiers: DVT location: lower extremity Affected thrombotic vein of extremity: popliteal Chronicity: acute Laterality: right Qualified Code(s): I82.431 - Acute embolism and thrombosis of right popliteal vein (2) Non compliance w medication regimen Status: Acute (3) Pulmonary emboli Status: Acute Qualifiers: Pulmonary embolism type: saddle Chronicity: acute Acute cor pulmonale presence: without acute cor pulmonale Qualified Code(s): I26.92 - Saddle embolus of pulmonary artery without acute cor pulmonale (4) Methamphetamine abuse Status: Chronic (5) Tobacco abuse Status: Chronic Brief History of Present Illness: Patient was initially admitted to the hospital for recurrent DVT secondary to noncompliance with medication Hospital Course: Overall during the hospital stay patient remained stable Patient was initially admitted to the hospital for recurrent right lower extremity pain was found to have DVT most likely secondary to noncompliance with medication and amphetamine abuse. Patient was initially started on warfarin and an echocardiogram was done. Pulmonology and cardiology was consulted here in the hospital. Echocardiogram was done and was within normal limits no right heart strain was noted. Patient initially was going to be able to follow up with the INR clinic however due to history of noncompliance along with methamphetamine abuse along with THC abuse the decision was made to continue patient on Lovenox as noted showed warfarin outweighs the benefits of being anticoagulated. Patient will be followed up with pulmonology will be given a prescription for 3 months at this time. Patient was also given a good Rx coupon which she was agreeable to. Patient stated that he would not be able to follow up with our clinic anyways. Patient was educated extensively regarding the need to continue taking anti coagulation to prevent any future blood clots and further treatment of current clots as well. Patient demonstrated understanding. Patient was also educated extensively on drug abuse and demonstrate understanding and thus was discharged home under stable condition. Vital Signs/Physical Exam: Temp Pulse Resp BP Pulse Ox 97.9 F 67 16 141/76 H 95 06/03/19 12:00 06/03/19 12:00 06/03/19 12:00 06/03/19 12:00 06/03/19 12:00 General: Alert, In no apparent distress HEENT: Atraumatic, PERRLA, EOMI Neck: Supple, JVD not distended Respiratory: Clear to auscultation bilaterally, Normal air movement Cardiovascular: Regular rate/rhythm, Normal S1 S2 Gastrointestinal: Normal bowel sounds, No tenderness Musculoskeletal: No tenderness Integumentary: No rashes Neurological: Normal speech, Normal tone, Normal affect Lymphatics: No axilla or inguinal lymphadenopathy Laboratory Data at Discharge: WBC 11.5 K/uL (4.3-10.9) H 06/03/19 03:56 Hgb 15.0 g/dL (13.6-17.9) 06/03/19 03:56 Hct 44.5 % (39.6-49.0) 06/03/19 03:56 Plt Count 217 K/uL (152-406) 06/03/19 03:56 PT 21.0 SECONDS (9.5-12.5) H 06/03/19 03:56 INR 1.82 06/03/19 03:56 Sodium 140 mmol/L (136-145) 06/03/19 03:56 Potassium 3.6 mmol/L (3.5-5.1) 06/03/19 03:56 BUN 7 mg/dL (7-18) 06/03/19 03:56 Creatinine 0.87 mg/dL (0.55-1.3) 06/03/19 03:56 Glucose 112 mg/dL (74-106) H 06/03/19 03:56 Magnesium 2.2 mg/dL (1.8-2.4) 06/03/19 03:56 Total Bilirubin 0.4 mg/dL (0.2-1.0) 05/31/19 10:30 AST 16 U/L (15-37) 05/31/19 10:30 ALT 27 U/L (12-78) 05/31/19 10:30 Alkaline Phosphatase 85 U/L (45-117) 05/31/19 10:30 Home Medications: Enoxaparin Sodium [Lovenox 120 MG Syr*] 115 mg SQ Q12HR #60 syr 06/03/19 New Medications: Enoxaparin Sodium [Lovenox 120 MG Syr*] 115 mg SQ Q12HR #60 syr Diet: Regular Activity: Ad erica Followup: Isaiah Arvizu MD [ACTIVE - CAN ADMIT] - 1 Week (Call to schedule an appointment)
== END 2019-06-03 14:22 | disposition home or self-care (01) | DRG 299 ==
LOC: ER 09:24 → ERHOLD 13:43 → 2ND 14:46
PROVIDERS: ADMIT Family Medicine; ATTEND Family Medicine
DX: I82.431 Acute embolism and thrombosis of right popliteal vein (principal); I26.92 Saddle embolus of pulmonary artery without acute cor pulmonale; Z91.14 Patient's other noncompliance with medication regimen; F15.10 Other stimulant abuse, uncomplicated; F12.10 Cannabis abuse, uncomplicated; F17.210 Nicotine dependence, cigarettes, uncomplicated
CPT/HCPCS: 36415; 71275; 80048; 80053; 80307; 80320; 81003; 81015; 83735; 84439; 84443; 84484; 85025; 85610; 87086; 87088; 93005; 93306; 93971; 96372; 99284; J1650; Q9967

== ENCOUNTER 2020-03-20 07:52 | Inpatient (IN) | payer SELFPAY ==
--- OUTSIDE RECORDS SUMMARY | 2020-03-20 08:06 | XMS REPORT | Continuity of Care Document ---
:1985 Author Organization [facility] t Address [address] [place] [address] Care Team Providers Name Role Phone Sumit MCCALL Attending Clinician Problems This patient has no known problems. Allergies, Adverse Reactions, Alerts This patient has no known allergies or adverse reactions. Medications This patient has no known medications. Procedures This patient has no known procedures. Encounters Start End Encounter Admission Attending Care Care Encounter Source Date/Time Date/Time Type Type Clinicians Facility Department ID 2019-06-21 2019-06-26 Office [facility] [id number] 09:40:26 11:39:18 Visit Elaine Ye [id number] [place] [id number] Do [phone] nal 059 Building 2019-06-25 2019-06-25 Telephone [facility] [id number] 00:00:00 00:00:00 Elaine Ye [id number] [place] [id number] Professio [phone] nal [address] [facility] Results This patient has no known results.
[2020-03-20 08:24] LABS: Hematocrit 45.1 % (39.6-49.0); Lymphocytes % 21.6 % (15.3-44.8); MPV 8.8 fL (7.6-11.3); RBC Red Blood Cell Count 5.04 M/uL (4.33-5.43)
[2020-03-20 08:27] LABS: Protime INR 1.14
[2020-03-20 08:33] LABS: Potassium 3.3 mmol/L (3.5-5.1)
[2020-03-20 08:42] LABS: ALT/SGPT 30 U/L (12-78); AST/SGOT 19 U/L (15-37); Albumin 3.5 g/dL (3.4-5.0); Alkaline Phosphatase 70 U/L (45-117); Bilirubin Direct 0.1 mg/dL (0-0.2); Bilirubin Total 0.4 mg/dL (0.2-1.0); Protein, Total 7.4 g/dL (6.4-8.2)
[2020-03-20 08:42] LABS: Barbiturates NEGATIVE (NEGATIVE); Benzodiazepines NEGATIVE (NEGATIVE); Cocaine NEGATIVE (NEGATIVE); METHAMPHETAM POSITIVE (NEGATIVE); Methadone NEGATIVE (NEGATIVE); Opiates NEGATIVE (NEGATIVE); Phencyclidine NEGATIVE (NEGATIVE); THC Cannibis NEGATIVE (NEGATIVE)
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
--- NOTE | 2020-03-20 09:22 | RAD REPORT ---
EXAM DESCRIPTION: [place] Single View03/20/2020 8:46 am CLINICAL HISTORY: Chest pain COMPARISON: 2010 FINDINGS: The lungs appear clear of acute infiltrate. The heart is normal size IMPRESSION: No acute abnormalities displayed
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
[2020-03-20 09:45] LABS: Urine Blood 2+ (NEG); Urine Glucose NEGATIVE (NEG); Urine Protein 1+ (NEG)
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
[2020-03-20] MEDS ORDERED: ACETAMINOPHEN 500 MG TAB PO PRN (12:20)
[2020-03-20] MEDS ORDERED: ONDANSETRON 4 MG/2 ML VIAL IV PRN (12:20)
[2020-03-20] MEDS: D5.45NS W/KCL 20MEQ 1,000 ML IV SCH ×2 (13:22→21:52)
[2020-03-20 13:39] VITALS: BMI 33.2
[2020-03-20] MEDS ORDERED: KCL 20 MEQ/100 mL IVPB 20 MEQ/100 ML BAG IV SCH (21:00)
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
[2020-03-21 05:55] LABS: Absolute Lymphocytes (CBC) 2.3 K/uL (0.7-4.9); Basophils % 0.7 % (0-1.3); Hematocrit 48.6 % (39.6-49.0); Lymphocytes % 28.1 % (15.3-44.8); MPV 8.8 fL (7.6-11.3); RBC Red Blood Cell Count 5.44 M/uL (4.33-5.43)
[2020-03-21 06:37] LABS: ALT/SGPT 30 U/L (12-78); AST/SGOT 21 U/L (15-37); Albumin 3.1 g/dL (3.4-5.0); Alkaline Phosphatase 68 U/L (45-117); BUN Blood Urea Nitrogen 11 mg/dL (7-18); Bicarbonate 25 mmol/L (21-32); Bilirubin Total 0.9 mg/dL (0.2-1.0); Glucose Level 105 mg/dL (74-106); Magnesium 2.4 mg/dL (1.8-2.4); Phosphorus 3.2 mg/dL (2.5-4.9); Potassium 4.3 mmol/L (3.5-5.1); Sodium Level 140 mmol/L (136-145)
[2020-03-21] MEDS: D5.45NS W/KCL 20MEQ 1,000 ML IV SCH (08:20)
[2020-03-21] MEDS ORDERED: ENOXAPARIN 40 MG/0.4 ML SQ SCH (09:00)
[2020-03-21 09:18] VITALS: O2SAT 95
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
[2020-03-21 14:15] VITALS: BP 137/84; TEMP 97.5
== END 2020-03-21 12:14 | disposition home or self-care (01) | DRG 93 ==
LOC: ER 07:52 → ERHOLD 11:14 → 2ND 11:57 → OBSVTOIN 03-21 08:13
PROVIDERS: ADMIT Family Medicine; ATTEND Family Medicine
DX: G92 Toxic encephalopathy (principal); F15.10 Other stimulant abuse, uncomplicated; F17.210 Nicotine dependence, cigarettes, uncomplicated; E87.6 Hypokalemia; E66.9 Obesity, unspecified; Z68.30 Body mass index [BMI] 30.0-30.9, adult; T43.625A Adverse effect of amphetamines, initial encounter; Y08.89XA Assault by other specified means, initial encounter; Z79.01 Long term (current) use of anticoagulants; Z71.51 Drug abuse counseling and surveillance of drug abuser; Z86.718 Personal history of other venous thrombosis and embolism; Z11.59 Encounter for screening for other viral diseases
CPT/HCPCS: 36415; 51702; 70450; 71045; 71260; 72125; 72170; 74177; 80048; 80053; 80076; 80307; 80320; 80329; 81003; 82565; 83735; 84100; 85025; 85610; 85730; 86850; 86900; 86901; 93005; 94760; 99285; G0378; Q9967; U0002

== ENCOUNTER 2020-04-30 15:27 | Emergency (ER) | payer SELFPAY ==
--- OUTSIDE RECORDS SUMMARY | 2020-04-30 15:39 | XMS REPORT | Continuity of Care Document ---
:1985 Author Organization [facility] t Address [address] [place] [address] Care Team Providers Name Role Phone Sumit [...] Clinicians Facility Department ID 2019-06-21 2019-06-26 Office [facility] [id number] 09:40:26 11:39:18 Visit Elaine Ye [id number] Diana [id number] Do [phone] nal 059 Building 2019-06-25 2019-06-25 Telephone [facility] [id number] 00:00:00 00:00:00 Elaine Ye [id number] Diana [id number] Professio [phone] nal 059 [facility] Results This patient has no known results.
[2020-04-30] MEDS ORDERED: TETANUS & DIPHTHERIA TOX,ADULT 0.5 ML VIAL ONE (15:50)
[2020-04-30] MEDS ORDERED: NA CHLORIDE 0.9% 1,000 ML ONE ×2 (15:50→19:15)
[2020-04-30 16:04] LABS: Absolute Lymphocytes (CBC) 1.5 K/uL (0.7-4.9); Basophils % 0.9 % (0-1.3); Lymphocytes % 16.6 % (15.3-44.8); MPV 9.2 fL (7.6-11.3); RBC Red Blood Cell Count 5.46 M/uL (4.33-5.43)
[2020-04-30 16:07] LABS: Protime INR 1.16
[2020-04-30] MEDS ORDERED: LIDOCAINE 1% MPF 30 ML VIAL ONE (16:43)
[2020-04-30] MEDS ORDERED: LIDOCAINE 1% W/EPI 1:100,000 MDV 50 ML VIAL ONE (16:46)
--- NOTE | 2020-04-30 17:37 | RAD REPORT ---
EXAM DESCRIPTION: RAD - Elbow Right 3 View - 04/30/2020 5:11 pm CLINICAL HISTORY: Elbow pain FINDINGS: No fracture or dislocation is seen. i
[2020-04-30 18:11] LABS: ALT/SGPT 38 U/L (12-78); AST/SGOT 29 U/L (15-37); Albumin 4.4 g/dL (3.4-5.0); Alkaline Phosphatase 81 U/L (45-117); BUN Blood Urea Nitrogen 13 mg/dL (7-18); Bicarbonate 21 mmol/L (21-32); Bilirubin Direct 0.2 mg/dL (0-0.2); Bilirubin Total 1.1 mg/dL (0.2-1.0); Glucose Level 124 mg/dL (74-106); Potassium 3.2 mmol/L (3.5-5.1); Protein, Total 8.5 g/dL (6.4-8.2); Sodium Level 143 mmol/L (136-145)
[2020-04-30] MEDS ORDERED: DERMABOND SKIN ADHESIVE TOP ONE ×2 (18:14→18:48)
--- NOTE | 2020-04-30 18:56 | RAD REPORT ---
EXAM DESCRIPTION: CT - Head C Spine Mpr Wo Con - 04/30/2020 6:30 pm CLINICAL HISTORY: Head and neck injury status post trauma. Head and neck pain COMPARISON: March 2001 TECHNIQUE: Computed axial tomography of the head and cervical spine was obtained. Sagittal and coronal reconstruction was performed. All CT scans are performed using dose optimization technique as appropriate and may include automated exposure control or mA/KV adjustment according to patient size. FINDINGS: An intracranial bleed is not seen. The ventricles are normal in caliber. An extra-axial fl uid collection is not noted.Fluid within the visualized sinuses and mastoids is not seen A cervical fracture is not visualized. No dislocation is noted. IMPRESSION: No acute intracranial abnormality is seen. A cervical fracture is not visualized. If the patient continues to have symptoms to suggest intracra nial /spinal cord pathology then MRI would be recommended
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
[2020-04-30] MEDS ORDERED: POTASSIUM 25 MEQ EFFERV TAB ONE (19:15)
[2020-04-30 19:37] VITALS: O2SAT 100
[2020-04-30 19:39] VITALS: TEMP 98
[2020-04-30 19:41] VITALS: BP 151/85
--- NOTE | 2020-05-01 15:26 | EKG ---
Test Date: 2020-04-30 Test Time: 15:41:38 Atm Mechanic: DORIS MEASUREMENT RESULTS: Intervals: Rate: 101 CT: 200 QRSD: 84 QT: 340 QTc: 440 Harrington: P: 49 CT: 200 QRS: 51 T: 46 INTERPRETIVE STATEMENTS: Sinus tachycardia Otherwise normal ECG Compared to ECG 03/20/2020 08:10:29 Sinus rhythm no longer present Electronically Signed On 05-01-20 15:24:17 CDT by Joseph Eng
== END 2020-04-30 19:28 | disposition home or self-care (01) ==
LOC: ER 15:27
PROC: 0JQ10ZZ Repair Face Subcutaneous Tissue and Fascia, Open Approach (ICD-10-PCS; principal; 2020-04-30)
PROC: 0JQG0ZZ Repair Right Lower Arm Subcutaneous Tissue and Fascia, Open Approach (ICD-10-PCS; 2020-04-30)
DX: S01.81XA Laceration without foreign body of other part of head, initial encounter (principal); S51.011A Laceration without foreign body of right elbow, initial encounter; W25.XXXA Contact with sharp glass, initial encounter; Y93.9 Activity, unspecified; Y92.9 Unspecified place or not applicable; Z23 Encounter for immunization
CPT/HCPCS: 36415; 70450; 72125; 80048; 80076; 80320; 80329; 85025; 85610; 85730; 90471; 90714; 93005; 96360; 99284; J7030

== ENCOUNTER 2020-06-24 00:37 | Emergency (ER) | payer SELFPAY ==
--- OUTSIDE RECORDS SUMMARY | 2020-06-24 00:39 | XMS REPORT | Continuity of Care Document ---
:1985 Author Organization [facility] t Address [address] [place] [address] Care Team Providers Name Role Phone Sumit MCCALL Attending Clinician Problems This patient has no known problems. Allergies, Adverse Reactions, Alerts This patient has no known allergies or adverse reactions. Medications This patient has no known medications. Procedures This patient has no known procedures. Encounters Start End Encounter Admission Attending Care Care Encounter Source Date/Time Date/Time Type Type Clinicians Facility Department ID 2020-05-19 2020-05-19 [id number] 00:00:00 00:00:00 Elaine Ye [id number] [place] [id number] [place] [phone] 2020-05-07 2020-05-07 [facility] [id number] 00:00:00 00:00:00 Elaine Ye [id number] [place] [id number] Profess[place] [phone] [address] 2019-06-21 2019-06-26 Office Sumit [facility] [id number] 09:40:26 11:39:18 Visit Elaine Ye [id number] [place] [id number] Professio [phone] [address] 2019-06-25 2019-06-25 Telephone Sumit [facility] [id number] 00:00:00 00:00:00 Elaine Ye [id number] [place] [id number] [facility] [phone] [facility] Results This patient has no known results.
--- OUTSIDE RECORDS SUMMARY | 2020-06-24 00:40 | XMS REPORT | Summary of Care ---
:1985 Author Organization [facility] Address [address] [place] [address] Care Team Providers Name Role Phone Pcp, Does Not Have A Primary Care Provider [facility] Referring Physician Reason for Visit Reason Comments Appointment [facility] Encounter Details Date Type Department Care Team Description 05/07/2020 Telephone [facility] Elaine Arana M D Appointment ([facility]- [address] ) [address] [place], [place] [phone] Allergies No Known Allergiesdocumented as of this encounter (statuses as of 05/07/2020) Medications Medication Sig Dispensed Refills Start Date End Date Status apixaban 5 mg 10 mg twice daily 60 tablet 3 06/21/2019 Active tabletIndications: for 7 days Acute deep vein followed by 5 mg thrombosis (DVT) of twice daily proximal vein of lower extremity, unspecified laterality apixaban 5 mg Take 1 tablet by 180 tablet 3 06/26/2019 Active tabletIndications: mouth 2 (two) Acute deep vein times daily. thrombosis (DVT) of proximal vein of lower extremity, unspecified laterality documented as of this encounter (statuses as of 05/07/2020) Active Problems No known active problemsdocumented as of this encounter (statuses as of 05/07/2020) Social History Tobacco Use Types Packs/Day Years Used Date Current Every Day Smoker Smokeless Tobacco: Never Used Sex Assigned at Date Recorded Not on file Job Start Date Occupation Industry Not on file Not on file Not on file Travel History Travel Start Travel End No recent travel history available. documented as of this encounter Last Filed Vital Signs Not on filedocumented in this encounter Plan of Treatment Health Maintenance Due Date Last Done Comments VARICELLA VACCINES (1 of 2 - 2-dose childhood series) 1984 PNEUMOCOCCAL 0-64 YEARS COMBINED SERIES (1 of 1 - 1989 PPSV23) DTaP,Tdap,and Td Vaccines (1 - Tdap) 1994 Depression Screening 1995 INFLUENZA VACCINE (#1) 2020 documented as of this encounter Results Not on filedocumented in this encounter
--- OUTSIDE RECORDS SUMMARY | 2020-06-24 00:40 | XMS REPORT | Summary of Care ---
:1985 Author Organization [facility] Address [address] [place] [address] Care Team Providers Name Role Phone Pcp, Does Not Have A Primary Care Provider [facility] Referring Physician Reason for Visit Reason Comments Notification [facility] approval Encounter Details Date Type Department Care Team Description 05/19/2020 Telephone [facility] Elaine Arana M D Notification ([facility] Cardiology- [address] approval) [address] [place], [place] [phone] Allergies No Known Allergiesdocumented as of this encounter (statuses as of 05/19/2020) Medications Medication Sig Dispensed Refills Start Date [...] as of this encounter (statuses as of 05/19/2020) Active Problems No known active problemsdocumented as of this encounter (statuses as of 05/19/2020) Social History Tobacco Use Types Packs/Day Years Used Date Current Every Day Smoker Smokeless Tobacco: Never Used Sex Assigned at Date Recorded Not on file documented as of this encounter Last Filed Vital Signs Not on filedocumented in this encounter Miscellaneous Notes Telephone Encounter - Inna Guzman RN - 05/19/2020 8:04 AM CDTPaperwork received from [employer] indicating that the patient was approved until 07/03/20. Paperwork indicates renewal application was sent to the patient. documented in this encounter Plan of Treatment Health Maintenance Due Date Last Done Comments VARICELLA VACCINES (1 of 2 - 2-dose childhood series) 1984 PNEUMOCOCCAL 0-64 YEARS COMBINED SERIES (1 of 1 - 1989 PPSV23) Depression Screening 1995 DTaP,Tdap,and Td Vaccines (1 - Tdap) 2002 INFLUENZA VACCINE (#1) 2020 documented as of this encounter Results Not on filedocumented in this encounter
[2020-06-24] MEDS ORDERED: NA CHLORIDE 0.9% 1,000 ML ONE (01:11)
[2020-06-24] MEDS ORDERED: DIPHENHYDRAMINE 50 MG/ML VIAL ONE (01:11)
[2020-06-24] MEDS ORDERED: METOCLOPRAMIDE 10 MG/2mL INJ ONE (01:12)
[2020-06-24] MEDS ORDERED: NA CHLORIDE 0.9% 50 ML IV ONE (01:12)
[2020-06-24 01:37] LABS: Absolute Lymphocytes (CBC) 2.8 K/uL (0.7-4.9); Basophils % 0.8 % (0-1.3); Hematocrit 43.8 % (39.6-49.0); Lymphocytes % 36.2 % (15.3-44.8); MPV 8.6 fL (7.6-11.3)
[2020-06-24 01:38] LABS: Protime INR 1.07
[2020-06-24 01:46] LABS: Albumin 3.4 g/dL (3.4-5.0); Bilirubin Direct 0.1 mg/dL (0-0.2); Bilirubin Total 0.5 mg/dL (0.2-1.0); Potassium 3.6 mmol/L (3.5-5.1); Protein, Total 7.1 g/dL (6.4-8.2)
--- NOTE | 2020-06-24 03:08 | ER ---
Nurse's Notes [facility] Name: Subhash Diggs Age: 35 yrs Sex: Male : 1985 Arrival Date: 06/24/2020 Time: 00:39 Bed 18 Private MD: Diagnosis: Headache Presentation: 06/24 00:49 Chief complaint: Patient states: he has been having a headache since yesterday morning bb the pain is 10/10 he has never had a headache this bad. Coronavirus screen: At this time, the client does not indicate any symptoms associated with coronavirus-19. Ebola Screen: No symptoms or risks identified at this time. Initial Sepsis Screen: Does the patient meet any 2 criteria? No. Patient's initial sepsis screen is negative. Does the patient have a suspected source of infection? No. Patient's initial sepsis screen is negative. Risk Assessment: Do you want to hurt yourself or someone else? Patient reports no desire to harm self or others. Onset of symptoms was June 23, 2020. 00:49 Method Of Arrival: Ambulatory bb 00:49 Acuity: [place] 3 bb Triage Assessment: 00:45 General: Appears in no apparent distress. uncomfortable, obese, Behavior is calm, flat. vc Pain: Complains of pain in left latter day Pain does not radiate. Pain currently is 9 out of 10 on a pain scale. at worst was 10 out of 10 on a pain scale. Quality of pain is described as throbbing, Pain began 2-3 days ago. Is continuous, Also complains of photophobia, inability to perform activities of daily living. 00:45 Neuro: Level of Consciousness is awake, alert, obeys commands, Oriented to person, vc place, time, situation, Appropriate for age. 00:51 Headache History: Denies prior headaches. bb Historical: - Allergies: 00:51 No Known Allergies; bb - Home Meds: 00:51 Eliquis Oral [Active]; bb - PMHx: 00:51 drug abuse; DVT; bb - PSHx: 00:51 None; bb - Immunization history:: Adult Immunizations up to date. - Social history:: Smoking status: Patient reports the use of cigarette tobacco products, smokes 1.5 packs per day, Patient uses street drugs, marijuana, Methamphetamine (Meth) Patient/guardian denies using alcohol. Screenin:49 Abuse screen: Denies threats or abuse. Nutritional screening: No deficits noted. vc Tuberculosis screening: No symptoms or risk factors identified. Fall Risk None identified. Assessment: 00:50 General: Appears in no apparent distress. uncomfortable, obese, Behavior is vc cooperative, flat. Pain: Complains of pain in left latter day Pain does not radiate. Pain currently is 9 out of 10 on a pain scale. at worst was 10 out of 10 on a pain scale. Quality of pain is described as throbbing, Pain began gradually. Neuro: Level of Consciousness is awake, alert, obeys commands, Oriented to person, place, time, situation, Appropriate for age. Cardiovascular: Capillary refill < 3 seconds Patient's skin is warm and dry. Respiratory: Airway is patent Respiratory effort is even, unlabored, Respiratory pattern is regular, symmetrical. GI: No signs and/or symptoms were reported involving the gastrointestinal system. : No signs and/or symptoms were reported regarding the genitourinary system. Derm: Skin is intact, is healthy with good turgor. Musculoskeletal: Circulation, motion, and sensation intact. Range of motion: intact in all extremities. 01:10 Reassessment: Patient and/or family updated on plan of care and expected duration. Pain vc level reassessed. Patient is alert, oriented x 3, equal unlabored respirations, skin warm/dry/pink. 01:30 Reassessment: patient laying with eyes closed, chest rising and falling equally, vc patient noted to be snoring. 02:00 Reassessment: No changes from previously documented assessment. Patient and/or family vc updated on plan of care and expected duration. Pain level reassessed. 03:05 Reassessment: Patient laying with eyes closed, chest rising and falling equally. vc Vital Signs: 00:49 BP 146 / 78; Pulse 60; Resp 20 S; Temp 98(TE); Pulse Ox 98% on R/A; Weight 127.01 kg bb (R); Height 6 ft. 1 in. (185.42 cm) (R); Pain 07/18; 01:00 BP 130 / 79; Pulse 54; Resp 20; Pulse Ox 98% on R/A; vc 02:00 BP 123 / 81; Pulse 54; Resp 20; Pulse Ox 97% on R/A; vc 03:00 BP 128 / 85; Pulse 68; Resp 18; Pulse Ox 96% on R/A; vc 00:49 Body Mass Index 36.94 (127.01 kg, 185.42 cm) bb [place] Coma Score: 03:05 Eye Response: spontaneous(4). Verbal Response: oriented(5). Motor Response: obeys mh7 commands(6). Total: 15. ED Course: 00:39 Patient arrived in ED. cl3 00:43 Purnima Monroy RN is Primary Nurse. vc 00:44 Fred Salinas MD is Attending Physician. mh7 00:45 Patient has correct armband on for positive identification. Bed in low position. Call vc light in reach. Side rails up X2. Pulse ox on. NIBP on. 00:51 Triage completed. bb 00:51 Arm band placed on Patient placed in an exam room, on a stretcher, on pulse oximetry. bb 01:10 Inserted saline lock: 20 gauge in right hand, using aseptic technique. Blood collected. vc 01:48 CT Head Brain wo Cont In Process Unspecified. EDMS 03:07 Jeferson Gonzalez MD is Referral Physician. mh7 03:18 No provider procedures requiring assistance completed. IV discontinued, intact, vc bleeding controlled, No redness/swelling at site. Pressure dressing applied. Administered Medications: 01:15 Drug: NS 0.9% 1000 ml Route: IV; Rate: 1000 ml; Site: right hand; vc 03:11 Follow up: IV Status: Completed infusion; IV Intake: 1000ml vc 01:15 Drug: Benadryl 50 mg Route: IVP; Site: right hand; vc 03:10 Follow up: Response: No adverse reaction; RASS: Light sedation (-2) vc 01:17 Drug: Reglan 10 mg Route: IVP; Site: right hand; vc 03:10 Follow up: Response: No adverse reaction; Marked relief of symptoms vc Intake: 03:11 IV: 1000ml; Total: 1000ml. vc Outcome: 03:07 Discharge ordered by . mh7 03:18 Discharged to home ambulatory. vc 03:18 Condition: good 03:18 Discharge instructions given to patient, Instructed on discharge instructions, follow up and referral plans. medication usage, Demonstrated understanding of instructions, follow-up care, medications, Prescriptions given X 1. 03:19 Patient left the ED. vc Signatures: Dispatcher [employer] Mary Edgar RN RN Ximena Leonard cl3 Purnima Monroy RN RN vc Holmes, Maurice, MD MD mh7 Corrections: (The following items were deleted from the chart) 03:07 03:05 BP 130 / 79; Pulse 54bpm; Resp 20bpm; Pulse Ox 98% RA; vc
--- NOTE | 2020-06-24 03:08 | EDPHYS ---
Physician Documentation [facility] Name: Subhash Diggs Age: 35 yrs Sex: Male : 1985 Arrival Date: 06/24/2020 Time: 00:39 Bed 18 Private MD: ED Physician Fred Salinas HPI: 06/24 01:12 This 35 yrs old Male presents to ER via Ambulatory with complaints of mh7 Headache. 01:12 The patient complains of pain to the left side of head. The patient describes the mh7 headache as intermittent, throbbing, waxing and waning. 01:13 Onset: The symptoms/episode began/occurred 2 day(s) ago. Associated signs and symptoms: mh7 Pertinent positives: Photophobia Pertinent negatives: altered mental status, dizziness, fever, malaise, nausea, neck stiffness, paresthesias, rash, sinus congestion, sinus tenderness, vision changes, vision loss, vomiting, weakness, vertigo. Severity of symptoms: At its worst the pain was moderate, yesterday, in the emergency department the pain has improved, moderately. Headache History: The patient has had previous headaches and this one is similar to previous episodes. The symptoms are alleviated by over the counter pain medication, OTC NSAIDS, the symptoms are aggravated by lights, movement, noise. Historical: - Allergies: 00:51 No Known Allergies; bb - Home Meds: 00:51 Eliquis Oral [Active]; bb - PMHx: 00:51 drug abuse; DVT; bb - PSHx: 00:51 None; bb - Immunization history:: Adult Immunizations up to date. - Social history:: Smoking status: Patient reports the use of cigarette tobacco products, smokes 1.5 packs per day, Patient uses street drugs, marijuana, Methamphetamine (Meth) Patient/guardian denies using alcohol. ROS: 01:13 Constitutional: Negative for fever, chills, and weight loss, Eyes: Negative for injury, mh7 pain, redness, and discharge, ENT: Negative for injury, pain, and discharge, Neck: Negative for injury, pain, and swelling, Cardiovascular: Negative for chest pain, palpitations, and edema, Respiratory: Negative for shortness of breath, cough, wheezing, and pleuritic chest pain, Abdomen/GI: Negative for abdominal pain, nausea, vomiting, diarrhea, and constipation, Back: Negative for injury and pain, : Negative for injury, bleeding, discharge, and swelling, MS/Extremity: Negative for injury and deformity, Skin: Negative for injury, rash, and discoloration, Psych: Negative for depression, anxiety, suicide ideation, homicidal ideation, and hallucinations, Allergy/Immunology: Negative for hives, rash, and allergies, Endocrine: Negative for neck swelling, polydipsia, polyuria, polyphagia, and marked weight changes, Hematologic/Lymphatic: Negative for swollen nodes, abnormal bleeding, and unusual bruising. Exam: 01:13 Constitutional: This is a well developed, well nourished patient who is awake, alert, mh7 and in no acute distress. 01:13 Eyes: Pupils equal round and reactive to light, extra-ocular motions intact. Lids and lashes normal. Conjunctiva and sclera are non-icteric and not injected. Cornea within normal limits. Periorbital areas with no swelling, redness, or edema. Neck: Trachea midline, no thyromegaly or masses palpated, and no cervical lymphadenopathy. Supple, full range of motion without nuchal rigidity, or vertebral point tenderness. No Meningismus. Chest/axilla: Normal chest wall appearance and motion. Nontender with no deformity. No lesions are appreciated. Cardiovascular: Regular rate and rhythm with a normal S1 and S2. No gallops, murmurs, or rubs. Normal PMI, no JVD. No pulse deficits. Respiratory: Lungs have equal breath sounds bilaterally, clear to auscultation and percussion. No rales, rhonchi or wheezes noted. No increased work of breathing, no retractions or nasal flaring. Abdomen/GI: Soft, non-tender, with normal bowel sounds. No distension or tympany. No guarding or rebound. No evidence of tenderness throughout. Back: No spinal tenderness. No costovertebral tenderness. Full range of motion. Skin: Warm, dry with normal turgor. Normal color with no rashes, no lesions, and no evidence of cellulitis. MS/ Extremity: Pulses equal, no cyanosis. Neurovascular intact. Full, normal range of motion. Neuro: Awake and alert, GCS 15, oriented to person, place, time, and situation. Cranial nerves II-XII grossly intact. Motor strength 5/5 in all extremities. Sensory grossly intact. Cerebellar exam normal. Normal gait. Psych: Awake, alert, with orientation to person, place and time. Behavior, mood, and affect are within normal limits. 01:13 Head/face: Noted is tenderness, that is mild, of the left scalp. Vital Signs: 00:49 BP 146 / 78; Pulse 60; Resp 20 S; Temp 98(TE); Pulse Ox 98% on R/A; Weight 127.01 kg bb (R); Height 6 ft. 1 in. (185.42 cm) (R); Pain 10/10; 01:00 BP 130 / 79; Pulse 54; Resp 20; Pulse Ox 98% on R/A; vc 02:00 BP 123 / 81; Pulse 54; Resp 20; Pulse Ox 97% on R/A; vc 03:00 BP 128 / 85; Pulse 68; Resp 18; Pulse Ox 96% on R/A; vc 00:49 Body Mass Index 36.94 (127.01 kg, 185.42 cm) bb Johnny Coma Score: 03:05 Eye Response: spontaneous(4). Verbal Response: oriented(5). Motor Response: obeys mh7 commands(6). Total: 15. MDM: 00:53 Patient medically screened. mh7 03:05 Differential diagnosis: cluster headache, hypertensive headache, intracerebral mh7 hemorrhage, migraine, tension headache. Data reviewed: vital signs, nurses notes, old medical records, lab test result(s), CBC, electrolytes, urinalysis, radiologic studies, CT scan. Data interpreted: Pulse oximetry: on room air is 98 %. Interpretation: normal. Counseling: I had a detailed discussion with the patient and/or guardian regarding: the historical points, exam findings, and any diagnostic results supporting the discharge/admit diagnosis, the presence of at least one elevated blood pressure reading (>120/80) during this emergency department visit, lab results, radiology results, the need for outpatient follow up, to return to the emergency department if symptoms worsen or persist or if there are any questions or concerns that arise at home. Response to treatment: the patient's symptoms have resolved after treatment, the patient's blood pressure is in an acceptable range, mental status has returned to baseline, the patient no longer shows bradycardia, the patient is not short of breath, the patient is not tachycardic, the patient's pain is gone, the patient's temperature has normalized, the patient is now symptom free, patient is well hydrated. 06/24 00:55 Order name: CBC with Diff; Complete Time: :06/24 00:55 Order name: Basic Metabolic Panel; Complete Time: :06/24 00:55 Order name: Protime (+inr); Complete Time: :06/24 00:55 Order name: Ptt, Activated; Complete Time: :06/24 00:55 Order name: LFT's; Complete Time: :06/24 00:55 Order name: ETOH Level; Complete Time: :06/24 00:55 Order name: CT Head Brain wo Cont 7 Administered Medications: 01:15 Drug: NS 0.9% 1000 ml Route: IV; Rate: 1000 ml; Site: right hand; vc 03:11 Follow up: IV Status: Completed infusion; IV Intake: 1000ml vc 01:15 Drug: Benadryl 50 mg Route: IVP; Site: right hand; vc 03:10 Follow up: Response: No adverse reaction; RASS: Light sedation (-2) vc 01:17 Drug: Reglan 10 mg Route: IVP; Site: right hand; vc 03:10 Follow up: Response: No adverse reaction; Marked relief of symptoms vc Disposition: 06/24/20 03:07 Discharged to Home. Impression: Headache. - Condition is Stable. - Discharge Instructions: General Headache Without Cause. - Prescriptions for Benadryl 25 mg Oral Capsule - take 1 capsule by ORAL route every 6 hours As needed; 12 tablet. - Medication Reconciliation Form, Thank You Letter, Antibiotic Education, Prescription Opioid Use form. - Follow up: Private Physician; When: 1 - 2 days; Reason: Worsening of condition, Recheck today's complaints, Continuance of care, Re-evaluation by your physician. Follow up: Jeferson Gonzalez MD; When: 1 - 2 days; Reason: Worsening of condition, Recheck today's complaints. - Problem is an acute exacerbation. - Symptoms have improved. Signatures: Dispatcher [employer] EDMary Kraus RN RN bb Calcote, Vanessa, RN RN vc Holmes, Maurice, MD MD 7 Corrections: (The following items were deleted from the chart) 01:15 01:12 Onset: The symptoms/episode began/occurred 3 day(s) ago, mh7 mh7 03:19 03:07 06/24/2020 03:07 Discharged to Home. Impression: Headache. Condition is Stable. vc Forms are Medication Reconciliation Form, Thank You Letter, Antibiotic Education, Prescription Opioid Use. Follow up: Private Physician; When: 1 - 2 days; Reason: Worsening of condition, Recheck today's complaints, Continuance of care, Re-evaluation by your physician. Follow up: Jeferson Gonzalez; When: 1 - 2 days; Reason: Worsening of condition, Recheck today's complaints. Problem is an acute exacerbation. Symptoms have improved. mh7
[2020-06-24 03:31] VITALS: TEMP 98
[2020-06-24 03:34] VITALS: BP 128/85; O2SAT 96
--- NOTE | 2020-06-24 14:44 | RAD REPORT ---
EXAM DESCRIPTION: CT of the head without contrast CLINICAL HISTORY: HEADACHE COMPARISON: None available TECHNIQUE: Axial CT of the head obtained from the skull apex to the skull base without contrast. FINDINGS: No acute intracranial hemorrhage identified. No mass, mass effect, shift of the midline, a bnormal extra-axial fluid collection or CT evidence of acute ischemic change identified. The ventricu lar system is unremarkable. No acute abnormalities of the supratentorial white matter, basal gangli a, cerebellum, or brainstem. Coastal thickening of the left paranasal sinus. Mastoid air cells are well aerated. No skull fracture identified. Visualized orbits and globes are unremarkable. IMPRESSION: 1. No acute intracranial abnormality identified. This exam was performed according to our departmental dose-optimization program, which includes autom ated exposure control, adjustment of the mA and/or kV according to patient size and/or use of iterati ve reconstruction technique. Electronically signed by: Lemuel Quan 06/24/2020 1:55 AM CDT Due to temporary technical issues with the PACS/Fluency reporting system, reports are being signed by the in house radiologist without review as a courtesy to ensure prompt reporting. The interpreting r adiologist is fully responsible for the content of the report.
--- OUTSIDE RECORDS SUMMARY | 2020-06-24 22:40 | XMS REPORT | Continuity of Care Document ---
:1985 Author Organization [facility] t Address [address] [place] [address] Care Team Providers Name Role Phone Sumit [...] Clinicians Facility Department ID 2020-05-19 2020-05-19 [facility] [id number] 00:00:00 00:00:00 Elaine Ye [id number] [place] [id number] [place] [phone] [address] 2020-05-07 2020-05-07 [facility] [id number] 00:00:00 00:00:00 Elaine Ye [id number] [place] [id number] [place] [phone] [address] 2019-06-21 2019-06-26 Office Sumit [facility] [id number] 09:40:26 11:39:18 Visit Elaine Ye [id number] [place] [id number] Professio [phone] [address] 2019-06-25 2019-06-25 Telephone Sumit [facility] [id number] 00:00:00 00:00:00 Elaine Ye [id number] [place] [id number] Profess[place] [phone] [facility]9 Building Results This patient has no known results.
== END 2020-06-24 03:19 | disposition home or self-care (01) ==
LOC: ER 00:37 → UNDOADMOB 19:38 → 4TH 19:38
DX: R51 Headache (principal); Z86.718 Personal history of other venous thrombosis and embolism; F17.210 Nicotine dependence, cigarettes, uncomplicated; Z79.01 Long term (current) use of anticoagulants
CPT/HCPCS: 36415; 70450; 80048; 80076; 80320; 85025; 85610; 85730; 96361; 96374; 96375; 99284; J1200; J2765; J7030

== ENCOUNTER 2020-06-24 22:00 | Inpatient (IN) | payer SELFPAY ==
--- OUTSIDE RECORDS SUMMARY | 2020-06-25 00:08 | XMS REPORT | Continuity of Care Document ---
:1985 Author Organization [facility] t Address [address] [place] [address] Care Team Providers Name Role Phone Sumit [...] Clinicians Facility Department ID 2020-05-19 2020-05-19 [facility] [id number] 00:00:00 00:00:00 Elaine Ye [id number] [place] [id number] [place] [phone] [address] 2020-05-07 2020-05-07 [facility] [id number] 00:00:00 00:00:00 Elaine Ye [id number] [place] [id number] [place] [phone] [address] 2019-06-21 2019-06-26 Office Sumit [facility] [id number] 09:40:26 11:39:18 Visit Elaine Ye [id number] [place] [id number] [place] [phone] [address] 2019-06-25 2019-06-25 Telephone Sumit [facility] [id number] 00:00:00 00:00:00 Elaine Ye [id number] [place] [id number] Profess[place] [phone] [facility]9 Building Results This patient has no known results.
--- NOTE | 2020-06-25 00:22 | P.HP ---
Certification for Inpatient Patient admitted to: Observation With expected LOS: <2 Midnights Patient will require the following post-hospital care: None Practitioner: I am a practitioner with admitting privileges, knowledge of patient current condition, hospital course, and medical plan of care. Services: Services provided to patient in accordance with Admission requirements found in Title 42 Section 412.3 of the Code of Federal Regulations <Kevin Chavez - Last Filed: 06/25/20 00:15> Patient History Date of Service: 06/25/20 Primary Care Provider: none Reason for admission: Chest pain History of Present Illness: 35 old male with history of DVT/PE was seen as stand-alone emergency department for headache. Patient was also seen in the emergency department here at our facility at approximately midnight on 06/24/2020. Patient had CT of his head during both visits which were negative for any acute findings. During his visit stand-alone emergency department patient began complaining of chest pain. Patient had EKG, chest x-ray, troponin at stand-alone emergency department which were negative. Stand-alone emergency department wished to transfer to our facility for chest pain rule out. When I saw the patient in the exam room he was awake, alert, oriented x4. Patient reports he is having some substernal chest pain radiating to left jaw. Patient reports history of DVT/PE in May of 2019, he is compliant with Eliquis 5 mg p.o. b.i.d. which he stated he is supposed to be on for lifetime. Patient had echocardiogram during his last admission in May 2019 when he had his pulmonary embolism that showed normal EF. Patient be admitted for further evaluation. 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 He has 1 child. 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 - Family History Father -: Hypertension - Social History Smoking Status: Current every day smoker Alcohol use: No CD- Drugs: Yes Caffeine use: Yes Place of Residence: Home <Kevin Chavez - Last Filed: 06/25/20 00:15> Date of Service: 06/25/20 <Neptali Bone - Last Filed: 06/25/20 17:13> Allergies No Known Allergies Allergy (Verified 06/25/20 01:56) Home Medications: Amlodipine [Norvasc*] 5 mg PO DAILY 30 Days #30 tab 06/25/20 Apixaban [Eliquis *] 5 mg PO BID 06/25/20 Review of Systems 10-point ROS is otherwise unremarkable Cardiovascular: Chest Pain <Kevin Chavez - Last Filed: 06/25/20 00:15> Physical Examination - Physical Exam General: Alert, In no apparent distress HEENT: Atraumatic, PERRLA, Mucous membr. moist/pink Neck: Supple, 2+ carotid pulse no bruit Respiratory: Clear to auscultation bilaterally, Normal air movement Cardiovascular: Regular rate/rhythm, Normal S1 S2 Gastrointestinal: Normal bowel sounds, No tenderness Musculoskeletal: No tenderness Integumentary: No rashes Neurological: Normal gait, Normal speech, Normal strength at 5/5 x4 extr, Normal tone, Normal affect <Kevin Chavez - Last Filed: 06/25/20 00:15> - Studies Laboratory Data (last 24 hrs) 06/25/20 06:05: Troponin I < 0.02 06/25/20 06:05: Sodium 140, Potassium 4.1, BUN 12, Creatinine 0.89, Glucose 91, Magnesium 2.2 06/25/20 06:05: WBC 7.7, Hgb 15.0, Hct 44.4, Plt Count 220 06/25/20 00:51: Troponin I < 0.02 Microbiology Data (last 24 hrs): 06/25/20 00:55 Nasopharnyx Coronavirus COVID-19 PCR - Final <Neptali Bone - Last Filed: 06/25/20 17:13> Assessment and Plan - Plan Assessment Chest pain rule out ACS History of DVT/PE on chronic anticoagulant therapy Amphetamine and marijuana abuse Tobacco abuse Plan Chest pain rule out ACS: Will trend troponins, initial cardiac enzymes negative. Cardiology consulted. Patient to remain on telemetry throughout this hospitalization. Continue with aspirin. Patient noted to be hypertensive on admission, will initiate Norvasc as patient was bradycardic around 56. Will o btain labs this morning. Patient with echocardiogram approximately 1 year ago showing ejection fraction around 60%. Patient does abuse amphetamines and smokes cigarettes. Appreciate further input from cardiology. DVT prophylaxis patient's Eliquis 5 mg p.o. b.i.d.. History of DVT/PE on chronic anticoagulant therapy: Continue Eliquis, obtain D- dimer level. Will rule out pulmonary embolism as necessary. Amphetamine and marijuana abuse: Counseled on need for cessation of narcotic drugs. Tobacco abuse: Counseled on need for tobacco cessation. Discharge Plan: Home Plan to discharge in: 24 Hours - Advance Directives Does patient have a Living Will: No Does patient have a Durable POA for Healthcare: No - Code Status/Comfort Care Code Status Assessed: Yes (Patient is full code) Critical Care: No Time Spent Managing Pts Care (In Minutes): 55 <Kevin Chavez - Last Filed: 06/25/20 00:15> Physician Review Additional Text: Plan of care discussed with Kevin Chavez, and I agree with the management plan as noted above. <Neptali Bone - Last Filed: 06/25/20 17:13>
[2020-06-25 00:26] VITALS: BMI 25.0
[2020-06-25] MEDS ORDERED: ACETAMINOPHEN 500 MG TAB PO PRN (00:34)
[2020-06-25] MEDS ORDERED: ONDANSETRON 4 MG/2 ML VIAL IV PRN (00:34)
[2020-06-25] MEDS ORDERED: NITROGLYCERIN 0.4 MG/TAB SL PRN (00:34)
[2020-06-25] MEDS ORDERED: HYDROCODONE/APAP 7.5/325 MG TAB PO PRN (00:34)
[2020-06-25] MEDS ORDERED: NA CHLORIDE 0.9% 1,000 ML IV SCH (01:00)
[2020-06-25] MEDS: APIXABAN 5 MG TABLET PO SCH ×2 (01:12→08:28)
[2020-06-25 02:04] LABS: Urine Appearance CLEAR; Urine Bilirubin NEGATIVE (NEG); Urine Blood NEGATIVE (NEG); Urine Color YELLOW; Urine Glucose NEGATIVE (NEG); Urine Microscopic Reflex NO UMIC; Urine Protein NEGATIVE (NEG); Urine Urobilinogen 0.2 mg/dL (0.2-1.0); Urine pH 5.5 (5.0-7.0)
[2020-06-25 02:12] LABS: Barbiturates NEGATIVE (NEGATIVE); Benzodiazepines NEGATIVE (NEGATIVE); Cocaine NEGATIVE (NEGATIVE); METHAMPHETAM NEGATIVE (NEGATIVE); Methadone NEGATIVE (NEGATIVE); Opiates POSITIVE (NEGATIVE); Phencyclidine NEGATIVE (NEGATIVE); THC Cannibis POSITIVE (NEGATIVE)
[2020-06-25 06:29] LABS: Absolute Lymphocytes (CBC) 2.9 K/uL (0.7-4.9); Basophils % 0.7 % (0-1.3); Hematocrit 44.4 % (39.6-49.0); Lymphocytes % 38.4 % (15.3-44.8); MPV 8.9 fL (7.6-11.3); RBC Red Blood Cell Count 4.91 M/uL (4.33-5.43)
[2020-06-25 06:43] LABS: BUN Blood Urea Nitrogen 12 mg/dL (7-18); Bicarbonate 26 mmol/L (21-32); Glucose Level 91 mg/dL (74-106); Magnesium 2.2 mg/dL (1.8-2.4); Potassium 4.1 mmol/L (3.5-5.1); Sodium Level 140 mmol/L (136-145)
[2020-06-25] MEDS ORDERED: AMLODIPINE 5 MG TAB PO SCH (09:00)
[2020-06-25] MEDS ORDERED: ASPIRIN EC 81 MG TAB PO SCH (09:00)
[2020-06-25 12:15] VITALS: O2SAT 97
[2020-06-25 12:31] VITALS: BP 158/82; TEMP 97.8
[2020-06-25] MEDS ORDERED: ATORVASTATIN 20 MG TAB PO SCH (21:00)
--- NOTE | 2020-06-28 19:13 | CON ---
Date of Consultation: 06/25/2020 Reason For Consultation: Chest pain. History Of Present Illness: Mr. Diggs is a 35-year-old white male who has a history of DVT, pulmo nary embolus, has been on Eliquis for that; tobacco abuse. He also has a history of drug abuse. He came in with urinalysis positive for codeine and marijuana. He initially came to the hospital in [facility] with atypical chest pain, then went back to [place] because of headache and while he was in [place], he developed more chest pain and he was sent back to the emergency room here in [facility], where he was admitt ed for further evaluation and treatment. When I saw him, the chest pain had gone. He still had a le ft right periorbital headache. Denies shortness of breath, nausea, vomiting, diaphoresis, PND, ortho pnea, pedal edema, palpitations, or syncope. He is not having any chest pain now. His chest pain wa s left lateral, sharp, pleuritic type, was worse with inspiration. He has already had a normal EKG, normal chest x-ray, normal troponin, normal CPK-MB and normal BNP. Chest x-ray and EKG are unremarka ble. Past Medical History: Negative. Review of Systems: Negative. Social History: Positive for alcohol tobacco, cocaine, marijuana. Family History: Noncontributory. Physical Examination: Vital Signs: Stable. Afebrile. HEENT: Negative. Neck: Supple. No bruit. Chest: Clear. Cardiac: Revealed a regular rhythm and rate. No murmurs, gallops, or rubs. Abdomen: Benign. Extremities: Revealed no clubbing, cyanosis, or edema. Diagnostic Data: All within normal limits except for the urinalysis. Impression And Plan: 1.Atypical chest pain in a patient with history of cocaine abuse, marijuana abuse, alcohol abuse, to bacco use. EKG is normal. Chest x-ray is normal. Enzymes are normal. Pain is very atypical. Echo cardiogram is pending. I think, the patient can definitely go home after the echo if it's normal and we can make an arrangement for him to have an outpatient stress test. He was counseled on his socia l history. 2.Headaches, secondary to drug use. 3.History of deep venous thrombosis and pulmonary embolus, on Eliquis. He needs to continue that pe rmanently. The case was discussed with Dr. Bone. KEVIN/MARIA ISABEL Voice ID: [id number] Report ID: [id number]
== END 2020-06-25 12:25 | disposition home or self-care (01) | DRG 313 ==
LOC: OBSVTOIN 22:00 → 4TH 22:00
PROVIDERS: ADMIT Psychiatry & Neurology Neurology; ATTEND Hospitalist
DX: R07.89 Other chest pain (principal); I10 Essential (primary) hypertension; F17.210 Nicotine dependence, cigarettes, uncomplicated; T40.2X5A Adverse effect of other opioids, initial encounter; F14.10 Cocaine abuse, uncomplicated; F15.10 Other stimulant abuse, uncomplicated; R51 Headache; Z71.51 Drug abuse counseling and surveillance of drug abuser; Z86.718 Personal history of other venous thrombosis and embolism; Z86.711 Personal history of pulmonary embolism; Z79.01 Long term (current) use of anticoagulants; Z79.899 Other long term (current) drug therapy; Z20.828 Contact with and (suspected) exposure to other viral communicable diseases
CPT/HCPCS: 36415; 80048; 80307; 81003; 83735; 84439; 84443; 84484; 85025; 85379; J7030; U0002

== ENCOUNTER 2021-01-02 01:45 | Emergency (ER) | payer SELFPAY ==
--- OUTSIDE RECORDS SUMMARY | 2021-01-02 01:48 | XMS REPORT | Continuity of Care Document ---
:1985 Author Organization [facility] t Address [address] [place] [address] Care Team Providers Name Role Phone Priya Guzman DO Attending Clinician Ivis Michelle Attending Clinician Sumit MCCALL Attending Clinician Doctor Unassigned, Name Attending Clinician Unavailable Problems This patient has no known problems. Allergies, Adverse Reactions, Alerts This patient has no known allergies or adverse reactions. Medications This patient has no known medications. Procedures This patient has no known procedures. Encounters Start End Encounter Admission Attending Care Care Encounter Source Date/Time Date/Time Type Type Clinicians Facility Department ID 2020-08-29 2020-08-29 [place] [id number] 10:41:00 11:11:00 Shobha Ye [id number] [place] [id number] [place] [id number] 2020-06-25 2020-06-25 Emergency Yoly [id number] 18:12:00 20:18:00 Manny eY [id number] [place] [id number] [place] [id number] 2020-05-19 2020-05-19 Telephone Sumit [id number] 00:00:00 00:00:00 Elaine Ye [id number] [place] [id number] [facility] [phone] [address] 2020-05-07 2020-05-07 Telephone [facility] [id number] 00:00:00 00:00:00 Elaine Ye [id number] [place] [id number] [place] [phone] [facility] 2020-05-04 2020-05-04 Orders Doctor ANGELIA [id number] 00:00:00 00:00:00 Only Unassigned, COLT 350.1.13.10 [place] [facility] [id number] [phone] [facility] 2019-06-21 2019-06-26 Office [facility] [id number] 09:40:26 11:39:18 Visit Ealine Ye [id number] [place] [id number] [place] [phone] [address] 2019-06-25 2019-06-25 Telephone [facility] [id number] 00:00:00 00:00:00 Elaine Ye 350.1.13.10 [place] [id number] [place] [phone] [address] Results This patient has no known results.
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
--- NOTE | 2021-01-02 09:40 | RAD REPORT ---
EXAM DESCRIPTION: [place] Single View01/02/2021 2:54 am CLINICAL HISTORY: Chest pain COMPARISON: 2019 FINDINGS: The lungs appear clear of acute infiltrate. The heart is normal size. Cortical irregulari ty involves the distal left clavicle IMPRESSION: Cortical regularity involves the distal left clavicle. This is incompletely evaluated o n this exam. This could be secondary to an acute or chronic fracture. If the patient has pain in this region then dedicated plain films of the left shoulder would be the recommendation.
--- NOTE | 2021-01-02 09:44 | RAD REPORT ---
EXAM DESCRIPTION: RAD - C Spine Ap/Lat - 01/02/2021 2:54 am CLINICAL HISTORY: Neck pain FINDINGS: No fracture or dislocation is seen. Limited evaluation of the top of the dens on the open-mouth odontoid view. Due to the patient's condi tion repeat images could not be obtained
[2021-01-02 20:34] VITALS: BP 125/80; TEMP 98; O2SAT 100
== END 2021-01-02 03:09 | disposition home or self-care (01) ==
LOC: ER 01:45
DX: M62.830 Muscle spasm of back (principal); Z72.0 Tobacco use
CPT/HCPCS: 71045; 72040; 99283

== ENCOUNTER 2025-07-28 17:49 | Emergency (ER) | payer OTHER, SELFPAY ==
--- OUTSIDE RECORDS SUMMARY | 2025-07-28 17:56 | XMS REPORT | Continuity of Care Document ---
Author Name Unknown Address [address] [place] [address] Organization [facility] Address [address] [place] [address] Care Team Providers Care Manufacture Specialist Name Role Phone None, None Primary Care Physician [phone] SHIRLEY PATTERSON Attending Clinician Unavailable SHIRLEY PATTERSON Attending Clinician Unavailable LEONOR RAE Attending Clinician Unavailable KRISTIN MARTINEZ Attending Clinician Unavailable KRISTIN MARTINEZ Attending Clinician Unavailable KELLEE MUNOZ Attending Clinician UnavailKELLEE Jones Attending Clinician UnavailShirley Quintero MD Attending Clinician [phone] Campaigns, Generic Provider Attending Clinician Unavailable NARESH RUFFIN Attending Clinician Unavailable NARESH RUFFIN Attending Clinician Unavailable Naresh Ruffin DO Attending Clinician [phone] JOSE PEREIRA Attending Clinician Unavailable Joao Sanchez MD Attending Clinician [phone] YUN ASENCIO Attending Clinician Unavailable Yun Bautista S Attending Clinician [phone] Doctor Unassigned, [place] Attending Clinician Pranay Soliz Attending Clinician [phone] Pranay POSADAS Attending Clinician Unavailable DELMA CALLE Attending Clinician Unavailable Delma Minaya Attending Clinician [phone] Shobha Cannon DO Attending Clinician [phone] Yoly DIRECTOR PROCESS ENGINEERING, Manny B Attending Clinician [phone] Sumit MCCALL, Abhinavjun Attending Clinician [phone] SHIRLEY PATTERSON Admitting Clinician Unavailable KELLEE MUNOZ Admitting Clinician UnavailJOSE Porras Admitting Clinician Unavailable Pranay POSADAS Admitting Clinician Unavailable DELMA CALLE Admitting Clinician Unavailable Payers Payer Name Policy Type Policy Number Effective Date Expirati on Date Source [facility] Rod/ CHRISTOPHER CERNA [id number] 2024 00:00:00 Problems Condition Name Condition Details Condition Category Status Onset Date Resolution Date Last Treatment Date Treating Clinician Comments Source Chronic venous insufficie ncy Chronic venous insufficie ncy Disease Active 2021-10 00:00: 00 [facility] History of DVT of lower extremity History of DVT of lower extremity Disease Active 2021-10 00:00: 00 [facility] Leg swelling Leg swelling Disease Active 2021-10 00:00: 00 [facility] History of deep vein thrombosis History of deep vein thrombosis Disease Active 2021-10 00:00: 00 [facility] Hx of pulmonary embolus Hx of pulmonary embolus Disease Active 2021-10 00:00: 00 [facility] METH OVERDOSE METH OVERDOSE Active 09/11/2018 [facility] Diagnosis Active 2017-10 04:09: 00 2018-09-18 22:05:00 Memoria osman [facility] OPIOID ABUSE, UNCOMPLICA MARCIA OPIOID ABUSE, UNCOMPLICA MARCIA Active [facility] Diagnosis Active 2018-09-11 07:17:00 Memoria osman Holloway POISONING BY UNSP DRUG/MEDS/ BIOL SUBST, POISONING BY UNSP DRUG/MEDS/ BIOL SUBST, Active [facility] Diagnosis Active 2018-09-11 07:17:00 Memoria osman [facility] ABN LEV DRUG/MEDS/ BIOL SUBST IN SPECIMEN ABN LEV DRUG/MEDS/ BIOL SUBST IN SPECIMEN Active [facility] Diagnosis Active 2018-09-18 22:05:00 Memoria osman [facility] Opioid abuse, uncomplica marcia Opioid abuse, uncomplica marcia 04/02/2019 [facility] 2019-04-02 14:23:36 Memoria osman [facility] Metabolic encephalop athy Metabolic encephalop athy 04/02/2019 [facility] 2019-04-02 14:23:36 Laura [facility]ay Pneumonia, unspecifie d organism Pneumonia, unspecifie d organism 9 [facility] 2019-04-02 14:23:36 Laura Holloway Alcohol abuse, uncomplica marcia Alcohol abuse, uncomplica marcia 04/02/2019 [facility] 2019-04-02 14:23:36 Laura Holloway Other stimulant abuse, uncomplica marcia Other stimulant abuse, uncomplica marcia 04/02/2019 [facility] 2019-04-02 14:23:36 Laura Holloway No known active problems No known active problems Disease [facility] History of Past Illness Condition Name Condition Details Condition Category Status Onset Date Resolution Date Last Treatment Date Treating Clinician Comments Source Poisoning by amphetamin es, accidental (unintenti onal), initial encounter Poisoning by amphetamin es, accidental (unintenti onal), initial encounter 09/20/2018 04/02/2019 [facility] Problem 2017-10 04:17: 09 2019-04-02 14:23:36 2019-04-02 14:23:36 Laura Holloway Allergies, Adverse Reactions, Alerts Allergy Name Allergy Type Status Severity Reaction(s) Onset Date Inactive Date Treating Clinician Comments Source NO KNOWN ALLERGIE S Drug Class Active [facility] No Known Medicati on Allergie s No Known Medicati on Allergie s Active Laura [facility] Social History Social Habit Start Date Stop Date Quantity Comments Source History of tobacco use Smokes tobacco daily [facility] of Social function 2025-06-15 00:00:00 2025-06-15 00:00:00 [facility] Exposure to SARS-CoV-2 (event) 2022-06-13 00:00:00 2022-06-23 11:36:00 Not sure [facility] Tobacco use and exposure 2019-06-21 00:00:00 2019-06-21 00:00:00 Smokeless tobacco non-user [facility] Social History 2018-09-11 14:52:40 2018-09-11 14:52:40 Harvinder Holloway Sex Assigned At 1985 00:00:00 1985 00:00:00 [facility] Smoking Status Start Date Stop Date Source Tobacco smoking consumption unknown [facility] Smokes tobacco daily 2019-06-21 00:00:00 [facility] Medications Ordered Medication Name Filled Medication Name Start Date Stop Date Current Medication? Ordering Clinician Indication Dosage Frequency Signature (SIG) Comments Components Source naproxen 500 mg tablet 2024-10 00:00: 00 08-03 04:59 :00 Yes [id number] 500mg Take 1 tablet by mouth in the morning and 1 tablet in the evening. Take with meals. Do all this for 10 days. [facility] cephalexin 500 mg capsule 06-23 00:00: 00 Yes 1mg Jared Fang Hibiclens 4 % topical liquid 06-23 00:00: 00 Yes % Jared Fang gabapentin 100 mg tablet 04-21 00:00: 00 Yes mg Jared Fang ibuprofen 600 mg tablet 04-21 00:00: 00 Yes 1mg Jared Fang cephalexin 500 mg capsule 04-21 00:00: 00 Yes 1mg Jared Fang Hibiclens 4 % topical liquid 04-21 00:00: 00 Yes % Jared Fang aspirin tablet 325 mg 04-11 20:30: 00 04-11 19:52 :00 No 325mg 325 mg, Oral, ONCE, 1 dose, On Mon04/11/25 at 1530, STAT [facility] traMADoL 50 mg tablet 04-11 00:00: 00 Yes [id number] 50mg Take 1 tablet by mouth every 6 hours as needed (pain). Indication s: acute pain [facility] cephALEXin 500 mg capsule 04-11 00:00: 00 04-22 04:59 :00 No [id number] 500mg Take 1 capsule by mouth in the morning and 1 capsule at noon and 1 capsule in the evening. Do all this for 10 days. [facility] Geodon 20 mg capsule 11-25 00:00: 00 Yes 1mg Jared Fang iopamidol (ISOVUE 370-500 mL) injection 85 mL 11-21 16:00: 00 2025- 02-13 16:00 :00 No [id number] 85mL 85 mL, Intravenou s, ONCE, 1 dose, On Heather 11/21/24 at 1000, Routine [facility] dextrometho kathleen-yanif enesin 10-100 mg/5 mL solution 11-21 00:00: 00 Yes [id number] 10mL Take 10 mL by mouth every 6 (six) hours as needed for Cough (sore throat). [facility] HYDROcodone -acetaminop hen (NORCO) 10-325 mg tablet 1 tablet 10-26 11:30: 00 10-26 10:30 :00 No 1{tbl} 1 tablet, Oral, ONCE, 1 dose, On 10/26/24 at 0530, Routine [facility] naproxen sodium 550 mg tablet 10-26 00:00: 00 Yes mg Jared Fang chlorhexidi ne 0.12 % mouthwash 10-26 00:00: 00 Yes [id number] 15mL Swish and spit out 15 mL in the morning and 15 mL in the evening. [facility] naproxen sodium (ANAPROX DS) 550 mg tablet 10-26 00:00: 00 Yes [id number] 550mg Take 1 tablet by mouth in the morning and 1 tablet in the evening. Take with meals. [facility] clindamycin 150 mg capsule 10-26 00:00: 00 11-03 05:59 :00 No [id number] 300mg Take 2 capsules by mouth 4 (four) times daily for 7 days. [facility] ketorolac 10 mg tablet 24 00:00: 00 Yes mg Jared Fang ketorolac 10 mg tablet 323 00:00: 00 Yes [id number] 10mg Take 1 tablet by mouth every 6 (six) hours as needed for Pain (scale 4-6) or Pain (scale 7-10). [facility] No known medications 2021-10 14:08: 13 No No known medication [facility] TAKE 1 CAPSULE BY MOUTH IN THE MORNING, 1 CAPSULE AT NOON, AND 1 CAPSULE IN THE EVENING 06-29 00:00: 00 Yes Jared Fang acetaminoph en (TYLENOL) tablet 975 mg 06-23 19:15: 00 06-23 18:31 :00 No 975mg 975 mg, Oral, ONCE, 1 dose, On Heather 06/23/22 at 1415, Routine [facility] Dose Unknown 06-13 00:00: 00 Yes Jared Fang Dose Unknown 06-13 00:00: 00 No TAKE 1 TABLET BY MOUTH ONCE DAILY IN THE EVENING 06-02 00:00: 00 Yes 5 Jared Fang TAKE 1 TABLET BY MOUTH ONCE DAILY IN THE EVENING 06-02 00:00: 00 No 5 TAKE 1 TABLET BY MOUTH ONCE DAILY IN THE EVENING 06-02 00:00: 00 No 5 WARFARIN BLINDED DOSE 05-31 01:45: 00 05-31 01:45 :00 No 5mg [facility] cephALEXin (KEFLEX) capsule 500 mg 05-31 01:45: 00 05-31 00:38 :00 No 500mg 500 mg, Oral, ONCE, 1 dose, On Mon05/30/22 at 2045, JANEY
Re ason for Anti-Infec tive: Documented Infection< br>Documen marcia Infection Site: Urine
D uration of Therapy: 10 days [facility] iopamidol (ISOVUE 370-500 mL) injection 75 mL 05-31 00:30: 00 05-31 00:30 :00 No [id number] 75mL 75 mL, Intravenou s, ONCE, 1 dose, On Mon05/30/22 at 1930, Routine [facility] TAKE 1 CAPSULE BY MOUTH 4 TIMES DAILY FOR 7 DAYS 05-30 00:00: 00 Yes 500 Jared Fang TAKE 1 CAPSULE BY MOUTH 4 TIMES DAILY FOR 7 DAYS 05-30 00:00: 00 No 500 TAKE 1 CAPSULE BY MOUTH 4 TIMES DAILY FOR 7 DAYS 05-30 00:00: 00 No 500 cephALEXin (KEFLEX) 500 mg capsule 05-30 00:00: 00 Yes [id number] 500mg Take 1 capsule by mouth in the morning and 1 capsule at noon and 1 capsule in the evening. [facility] warfarin 5 mg tablet 05-30 00:00: 00 Yes [id number] 5mg Take 1 tablet by mouth every evening. [facility] warfarin (COUMADIN) tablet 5 mg 11-30 21:00: 00 11-30 20:09 :00 No 5mg 5 mg, Oral, ONCE NOW, 1 dose, On Mon11/30/21 at 1500, Routine
INR Goal Range: 2.0
IND ICATION (More than one indication for warfarin can be selected): DVT and/or PE [facility] enoxaparin (LOVENOX) injection 141 mg 11-30 21:00: 00 11-30 20:09 :00 No 1mg/kg 141 mg (rounded from 136.1 mg = 1 mg/kg ?136.1 kg), Subcutaneo us, ONCE, 1 dose, On Mon11/30/21 at 1500, Routine [facility] warfarin (COUMADIN) 5 mg tablet 11-30 00:00: 00 Yes [id number] 5mg Take 1 tablet by mouth every evening. [facility] cephALEXin 500 mg capsule 11-30 00:00: 00 12-08 05:59 :00 No [id number] 500mg Take 1 capsule by mouth 4 (four) times daily for 7 days. [facility] ketorolac (TORADOL) injection 15 mg 06-26 00:30: 00 06-26 00:13 :00 No 15mg 15 mg, Slow IV Push, ONCE, 1 dose, [facility] 06/25/20 at 1930, JANEY
Fa culty member approving Restricted medication : SHOBHA CANNON [facility] metoclopram berhane HCl (REGLAN) injection 10 mg 06-26 00:30: 00 06-26 00:14 :00 No 10mg 10 mg, Slow IV Push, ONCE, 1 dose, Heather 06/25/20 at 1930, JANEY [facility] dexamethaso ne (DECADRON PHOSPHATE) injection 10 mg 06-26 00:30: 00 06-26 00:15 :00 No 10mg 10 mg, IV Push, ONCE, 1 dose, Heather 06/25/20 at 1930, STAT [facility] NaCl 0.9% (NS) bolus infusion 1,000 mL 06-25 23:30: 00 06-26 01:10 :00 No 1000mL at 999 mL/hr, 1,000 mL, IV Infusion, ONCE, 1 dose, [facility] 06/25/20 at 1830, JANEY [facility] butalbital- acetaminoph en-caff 50-325-40 mg tablet 06-25 00:00: 00 Yes [id number] 1{tbl} Take 1 tablet by mouth every 4 (four) hours as needed for Pain (scale 7-10). [facility] metoclopram berhane HCl 10 mg tablet 06-25 00:00: 00 Yes [id number] 10mg Take 1 tablet by mouth every 6 (six) hours as needed for Nausea and Vomiting (N/V). [facility] apixaban 5 mg tablet 06-26 00:00: 00 Yes [id number] 8 5mg Take 1 tablet by mouth 2 (two) times daily. [facility] apixaban 5 mg tablet 06-21 00:00: 00 Yes [id number] 8 10 mg twice daily for 7 days followed by 5 mg twice daily [facility] enoxaparin 100 mg/mL subcutaneou s syringe 06-06 00:00: 00 Yes 1mg/mL Jared Fang enoxaparin 100 mg/mL subcutaneou s syringe 06-06 00:00: 00 No 1mg/mL enoxaparin 100 mg/mL subcutaneou s syringe 06-06 00:00: 00 No 1mg/mL thiamine 100 mg oral tablet 2017-10 18:27: 00 No 100 mg = 1 tab, PO, Daily, X 30 day, # 30 tab, 0 Refill(s), Pharmacy: [facility] [id number] [facility] azithromyci n 500 mg oral tablet 2017-10 18:27: 00 No 500 mg = 1 tab, PO, Daily, X 3 day, # 3 tab, 0 Refill(s), Pharmacy: [facility] [id number] Laura [facility] Folic Acid 1 MG Oral Tablet 2017-10 18:27: 00 Yes 1 mg = 1 tab, PO, Daily, # 30 tab, 0 Refill(s), Pharmacy: [facility] [address] Laura [facility] lisinopril 5 mg oral tablet 2017-10 18:27: 00 Yes 5 mg = 1 tab, PO, Daily, # 30 tab, 0 Refill(s), Pharmacy: [facility] [id number] Laura [facility] Acetaminoph en 300 MG / Codeine Phosphate 30 MG Oral Tablet [Tylenol with Codeine #3] 2017-10 17:02: 00 No Notes: Do not exceed 4gm/day of acetaminop hen. (Same as: Tylenol with Codeine # 3) Laura [facility]ay Ativan 2017-10 16:20: 00 No Notes: (Same as: Ativan) Laura Holloway Amlodipine 2017-10 16:17: 00 No Notes: (Same as: Norvasc) Laura Holloway Hydralazine 2017-10 00:28: 00 No Notes: (Same as: Apresoline ) Push over 5 minutes Laura Holloway ketAMINE 500 mg + Sodium Chloride 0.9% IV 450 mL 2017-10 18:17: 00 No 450 mL, Rate: 3mg/hr, Route: IV, Dosing Weight 133 kg, Total Volume: 500, Start date: 09/11/18 12:17:00 AMMONIA TECHNICIAN, Stop date: 09/11/18 21:00:00 AMMONIA TECHNICIAN, 2.63, m2 Laura [facility]ay Rocephin + sterile water 10 mL 2017-10 18:00: 00 No Notes: (Same As: Rocephin). Use with 100 mL NS and infuse over 30 min MEDICATION WASTE Product Size: 1000 mg Product Wasted: ___ mg Laura Holloway Ketamine 2017-10 17:18: 00 No 500 mg, 10 mL, Route: IV, Drug form: INJ, Daily, Dosing Weight 133, kg, Start date: 09/11/18 11:18:00 AMMONIA TECHNICIAN, Duration: 1 day, Stop date: 09/12/18 9:00:00 AMMONIA TECHNICIAN Laura Holloway Dexmedetomi dine 2017-10 17:18: 00 No Notes: Use the following cdm for [id number]. Laura Holloway Enoxaparin 2017-10 16:00: 00 No Notes: (Same as: Lovenox) Laura Holloway Saline Flush 0.9% 2017-10 13:37: 00 No Notes: (Same as: BD Posiflush) Laura Holloway Calcium Carbonate 500 MG Chewable Tablet 2017-10 13:37: 00 No Notes: (Same As: Tums) Calcium Carbonate 500 mg = 200 mg elemental calcium Dose = mg calcium carbonate ( mg elemental calcium) Laura Holloway Calcium Gluconate 2017-10 13:37: 00 No Notes: WASTE: F/P - Sink; E - Municipal Trash Bin Laura Holloway Potassium Chloride 2017-10 13:37: 00 No Notes: (Same as: K-Dur 20) "Do Not Crush" Give with food and full glass of water For patients unable to swallow tablet, dissolve in one half glass of water. Allow about 2 minutes for the tablets to disintegra te. Stir before giving to prepare slurry and administer . Please exclude Patient s with feeding tube less than 14 [place] (Dobhoff, J-tube etc) and pediatric and patients. Laura Holloway potassium phosphate 2017-10 13:37: 00 No Notes: (Same as: K Phosphate. ) Do not infuse phosphorou s concurrent ly in the same line as TPN or IVF that contains calcium. For double lumen central lines, phosphorou s may be infused in a separate lumen from TPN. 1 mMol phoshate has 1.47 mEq potassium Infuse over 4 hours Yvonneprabhu Holloway sodium phosphate 2017-10 13:37: 00 No Notes: Infuse over 4 hour. Do not infuse phosphorou s concurrent ly in the same line as TPN or IVF that contains calcium. For double lumen central lines, phosphorou s may be infused in a separate lumen from TPN. Laura Holloway Magnesium Oxide 2017-10 13:37: 00 No Notes: (Same as: Mag-Ox 400) Magnesium oxide 371ac=640w g elemental magnesium Dose=____m g magnesium oxide (___mg elemental magnesium) Laura Holloway Magnesium Sulfate 2017-10 13:37: 00 No Notes: WASTE: F/P - Sink; E - Municipal Trash Bin Laura Holloway potassium phosphate-s odium phosphate 250 mg-280 mg-160 mg oral powder for reconstitut ion 2017-10 13:37: 00 No Notes: (Same as: Phos-NaK) Each 1.5 gm pkt has 250mg phosphorou s. Mix w/2.5oz water and stir. Laura Holloway Lactated Ringers IV 1,000 mL 2017-10 13:37: 00 No 1,000 mL, Rate: 50 ml/hr, Infuse over: 20 hr, Route: IV, Dosing Weight 133 kg, Total Volume: 1,000, Start date: 09/11/18 7:37:00 AMMONIA TECHNICIAN, Duration: 30 day, Stop date: 10/11/18 7:37:00 AMMONIA TECHNICIAN Laura Holloway Nystatin 100 UNT/MG Topical Powder 2017-10 13:37: 00 No Notes: (Same as:Mycosta tin, Nilstat) For external use only. Laura Holloway Acetaminoph en 2017-10 13:37: 00 No Notes: Do not exceed 4 gm/day. (Same as: Tylenol) Laura Holloway Vital Signs Vital Name Observation Time Observation Value Comments Charles irene Systolic blood pressure 2025-07-23 22:46:00 170 mm[Hg] [facility] Diastolic blood pressure 2025-07-23 22:46:00 105 mm[Hg] [facility] Heart rate 2025-07-23 22:46:00 67 /[facility] Body temperature 2025-07-23 22:46:00 36.78 Krystle [facility] Respiratory rate 2025-07-23 22:46:00 18 /min [facility] Oxygen saturation in Arterial blood by Pulse oximetry 2025-07-23 22:46:00 98 /min [facility] Body height 2025-07-23 19:56:00 185.4 cm [facility] Body weight 2025-07-23 19:56:[address] [facility] BMI 2025-07-23 19:56:00 49.48 kg/m2 [facility] Systolic blood pressure 2025-07-09 21:09:00 143 mm[Hg] [facility] Diastolic blood pressure 2025-07-09 21:09:00 111 mm[Hg] [facility] Heart rate 2025-07-09 21:09:00 85 /min [facility] Body temperature 2025-07-09 21:09:00 36.39 Krystle [facility] Respiratory rate 2025-07-09 21:09:00 22 /min [facility] Body height 2025-07-09 21:09:00 185.4 cm [facility] Body weight 2025-07-09 21:09:[address] [facility] BMI 2025-07-09 21:09:00 35.95 kg/m2 [facility] Oxygen saturation in Arterial blood by Pulse oximetry 2025-07-09 21:09:00 97 /min [facility] Systolic blood pressure 2025-06-16 01:23:00 157 mm[Hg] [facility] Diastolic blood pressure 2025-06-16 01:23:00 108 mm[Hg] [facility] Heart rate 2025-06-16 01:23:00 67 /min [facility] Body temperature 2025-06-16 01:23:00 37.22 Krystle [facility] Respiratory rate 2025-06-16 01:23:00 17 /min [facility] Body height 2025-06-16 01:23:00 185.4 cm Univ [facility] Body weight 2025-06-16 01:23:00 136.079 kg [facility] BMI 2025-06-16 01:23:00 39.58 kg/m2 [facility] Oxygen saturation in Arterial blood by Pulse oximetry 2025-06-16 01:23:00 100 /min [facility] Systolic blood pressure 2025-04-11 22:28:00 153 mm[Hg] [facility] Diastolic blood pressure 2025-04-11 22:28:00 92 mm[Hg] [facility] Heart rate 2025-04-11 22:28:00 81 /min [facility] Body temperature 2025-04-11 22:28:00 36.39 Krystle [facility] Respiratory rate 2025-04-11 22:28:00 16 /min [facility] Oxygen saturation in Arterial blood by Pulse oximetry 2025-04-11 22:28:00 99 /min [facility] Body height 2025-04-11 19:15:[address] [facility] Body weight 2025-04-11 19:15:[address] [facility] BMI 2025-04-11 19:15:00 39.58 kg/m2 [facility] Systolic blood pressure 2024-11-21 16:17:00 168 mm[Hg] [facility] Diastolic blood pressure 2024-11-21 16:17:00 100 mm[Hg] [facility] Heart rate 2024-11-21 16:17:00 99 /min [facility] Body temperature 2024-11-21 16:17:00 36.94 Krystle [facility] Respiratory rate 2024-11-21 16:17:00 16 /min [facility] Oxygen saturation in Arterial blood by Pulse oximetry 2024-11-21 16:17:00 96 /min [facility] Body height 2024-11-21 14:22:00 185.4 cm Univ [facility] Body weight 2024-11-21 14:22:[address] [facility] BMI 2024-11-21 14:22:00 39.58 kg/m2 [facility] Systolic blood pressure 2024-10-26 10:24:00 182 mm[Hg] [facility] Diastolic blood pressure 2024-10-26 10:24:00 102 mm[Hg] [facility] Heart rate 2024-10-26 10:24:00 66 /min [facility] Body temperature 2024-10-26 10:24:00 36.39 Krystle [facility] Respiratory rate 2024-10-26 10:24:00 16 /min [facility] Body height 2024-10-26 10:24:[address] [facility] Body weight 2024-10-26 10:24:[address] [facility] BMI 2024-10-26 10:24:00 50.76 kg/m2 [facility] Oxygen saturation in Arterial blood by Pulse oximetry 2024-10-26 10:24:00 98 /min [facility] Systolic blood pressure 2022-06-23 16:38:00 188 mm[Hg] [facility] Diastolic blood pressure 2022-06-23 16:38:00 103 mm[Hg] [facility] Heart rate 2022-06-23 16:38:00 67 /[facility] Body temperature 2022-06-23 16:38:00 36.44 Krystle [facility] Respiratory rate 2022-06-23 16:38:00 18 /min [facility] Body height 2022-06-23 16:38:[address] [facility] Body weight 2022-06-23 16:38:[address] [facility] BMI 2022-06-23 16:38:00 42.75 kg/m2 [facility] Oxygen saturation in Arterial blood by Pulse oximetry 2022-06-23 16:38:00 97 /min [facility] Systolic blood pressure 2022-05-31 00:51:00 150 mm[Hg] [facility] Diastolic blood pressure 2022-05-31 00:51:00 90 mm[Hg] [facility] Heart rate 2022-05-31 00:51:00 73 /min [facility] Respiratory rate 2022-05-31 00:51:00 16 /min [facility] Oxygen saturation in Arterial blood by Pulse oximetry 2022-05-31 00:51:00 95 /min [facility] Body height 2022-05-30 21:03:[address] [facility] Body weight 2022-05-30 21:03:[address] [facility] BMI 2022-05-30 21:03:00 45.39 kg/m2 [facility] Body temperature 2022-05-30 20:58:00 36.83 Krystle [facility] Systolic blood pressure 2021-11-30 21:00:00 119 mm[Hg] [facility] Diastolic blood pressure 2021-11-30 21:00:00 94 mm[Hg] [facility] Heart rate 2021-11-30 21:00:00 82 /min [facility] Respiratory rate 2021-11-30 21:00:00 16 /min [facility] Oxygen saturation in Arterial blood by Pulse oximetry 2021-11-30 21:00:00 96 /min [facility] Body temperature 2021-11-30 17:00:00 36.78 Krystle [facility] Body weight 2021-11-30 16:58:[address] [facility] BMI 2021-11-30 16:58:00 39.58 kg/m2 [facility] Systolic blood pressure 2020-08-29 16:40:00 138 mm[Hg] [facility] Diastolic blood pressure 2020-08-29 16:40:00 99 mm[Hg] [facility] Heart rate 2020-08-29 16:40:00 56 /min [facility] Body temperature 2020-08-29 16:40:00 36.44 Krystle [facility] Respiratory rate 2020-08-29 16:40:00 18 /min [facility] Body weight 2020-08-29 16:40:[address] [facility] [facility] BMI 2020-08-29 16:40:00 36.94 kg/m2 [facility] Oxygen saturation in Arterial blood by Pulse oximetry 2020-08-29 16:40:00 96 /min [facility] Systolic blood pressure 2020-08-29 16:40:00 138 mm[Hg] [facility] Diastolic blood pressure 2020-08-29 16:40:00 99 mm[Hg] [facility] Heart rate 2020-08-29 16:40:00 56 /min [facility] Body temperature 2020-08-29 16:40:00 36.44 Krystle [facility] Respiratory rate 2020-08-29 16:40:00 18 /min [facility] Body weight 2020-08-29 16:40:[address] [facility] BMI 2020-08-29 16:40:00 36.94 kg/m2 [facility] Oxygen saturation in Arterial blood by Pulse oximetry 2020-08-29 16:40:00 96 /min [facility] Systolic blood pressure 2020-06-26 01:00:00 140 mm[Hg] [facility] Diastolic blood pressure 2020-06-26 01:00:00 90 mm[Hg] [facility] Heart rate 2020-06-26 01:00:00 121 /min [facility] Respiratory rate 2020-06-26 01:00:00 18 /min [facility] Oxygen saturation in Arterial blood by Pulse oximetry 2020-06-26 01:00:00 96 /min [facility] Body temperature 2020-06-25 23:09:00 37.06 Krystle [facility] Body weight 2020-06-25 23:09:[address] [facility] Systolic blood pressure 2020-06-26 01:00:00 140 mm[Hg] [facility] Diastolic blood pressure 2020-06-26 01:00:00 90 mm[Hg] [facility] Heart rate 2020-06-26 01:00:00 121 /[facility] Respiratory rate 2020-06-26 01:00:00 18 /min [facility] Oxygen saturation in Arterial blood by Pulse oximetry 2020-06-26 01:00:00 96 /min [facility] Body temperature 2020-06-25 23:09:00 37.06 Krystle [facility] Body weight 2020-06-25 23:09:[address] [facility] BP Systolic 2025-06-23 14:11:00 141 mm[Hg] Step hen F Leoncio BP Diastolic 2025-06-23 14:11:00 90 mm[Hg] Joe phen F Leoncio Weight Measured 2025-06-23 14:11:00 288.80 pounds Jared F Leoncio Height Measured 2025-06-23 14:11:00 73.00 inches Jared F Leoncio Body Temperature 2025-06-23 14:11:00 98.00 degrees Jared F Leoncio Heart Rate 2025-06-23 14:11:00 89.00 /min Yenny en F Leoncio Respiratory Rate 2025-06-23 14:11:00 17.00 /min Jared F Leoncio BP Systolic 2025-04-21 08:43:00 149 mm[Hg] Step hen F Leoncio BP Diastolic 2025-04-21 08:43:00 92 mm[Hg] Joe phen F Leoncio Weight Measured 2025-04-21 08:43:00 321.20 pounds Jared F Leoncio Height Measured 2025-04-21 08:43:00 73.00 inches Jared F Leoncio Body Temperature 2025-04-21 08:43:00 98.00 degrees Jared F Leoncio Heart Rate 2025-04-21 08:43:00 66.00 /min Yenny en F Leonc[facility] Respiratory Rate 2025-04-21 08:43:00 16.00 /min Jared F Leoncio BP Systolic 2025-04-14 14:10:00 172 mm[Hg] Step hen F Leoncio BP Diastolic 2025-04-14 14:10:00 113 mm[Hg] Joe phen F Leoncio Weight Measured 2025-04-14 14:10:00 332.00 pounds Jared F Leoncio Height Measured 2025-04-14 14:10:00 73.00 inches Jared F Leoncio Body Temperature 2025-04-14 14:10:00 96.90 degrees Jared F Leoncio Heart Rate 2025-04-14 14:10:00 57.00 /min Yenny en F Leoncio Respiratory Rate 2025-04-14 14:10:00 16.00 /min Jared F Leoncio BP Systolic 2025-04-14 13:50:00 172 mm[Hg] Step hen F Leoncio BP Diastolic 2025-04-14 13:50:00 113 mm[Hg] Joe phen F Leoncio Weight Measured 2025-04-14 13:50:00 332.00 pounds Jared F Leoncio Height Measured 2025-04-14 13:50:00 73.00 inches Jared F Leoncio Body Temperature 2025-04-14 13:50:00 96.90 degrees Jared F Leoncio Heart Rate 2025-04-14 13:50:00 57.00 /min Yenny en F Leoncio Respiratory Rate 2025-04-14 13:50:00 16.00 /min Jared F Leoncio BP Systolic 2022-06-21 15:30:00 147 mm[Hg] Step hen F Leoncio BP Diastolic 2022-06-21 15:30:00 84 mm[Hg] Joe phen F Leoncio Weight Measured 2022-06-21 15:30:00 343.00 pounds Jared F Leoncio Height Measured 2022-06-21 15:30:00 73.00 inches Jared F Leoncio Body Temperature 2022-06-21 15:30:00 97.50 degrees Jared F Leoncio Heart Rate 2022-06-21 15:30:00 95.00 /min Yenny en F Leoncio Respiratory Rate 2022-06-21 15:30:00 18.00 /min Jared F Leoncio BP Systolic 2022-06-07 15:21:00 129 mm[Hg] Step hen F Leoncio BP Diastolic 2022-06-07 15:21:00 85 mm[Hg] Joe phen F Leoncio Weight Measured 2022-06-07 15:21:00 341.60 pounds Jared F Leoncio Height Measured 2022-06-07 15:21:00 73.00 inches Jared F Leoncio Body Temperature 2022-06-07 15:21:00 98.30 degrees Jared F Leoncio Heart Rate 2022-06-07 15:21:00 78.00 /min Yenny en F Leoncio Respiratory Rate 2022-06-07 15:21:00 18.00 /min Jared F Leoncio BP Systolic 2022-05-30 14:32:00 144 mm[Hg] Step hen F Leoncio BP Diastolic 2022-05-30 14:32:00 80 mm[Hg] Joe phen F Leoncio Weight Measured 2022-05-30 14:32:00 346.60 pounds Jared F Leoncio Height Measured 2022-05-30 14:32:00 73.00 inches Jared F Leoncio Body Temperature 2022-05-30 14:32:00 97.50 degrees Jared F Leoncio Heart Rate 2022-05-30 14:32:00 102.00 /min Step hen F Loencio Respiratory Rate 2022-05-30 14:32:00 24.00 /min Jared F Leoncio BP Systolic 2019-06-06 13:31:00 128 mm[Hg] Step hen F Leoncio BP Diastolic 2019-06-06 13:31:00 80 mm[Hg] Joe phen F Leoncio Weight Measured 2019-06-06 13:31:00 280.40 pounds Jared F Leoncio Height Measured 2019-06-06 13:31:00 73.00 inches Jared F Leoncio Body Temperature 2019-06-06 13:31:00 98.40 degrees Jared F Leoncio Heart Rate 2019-06-06 13:31:00 73.00 /min Yenny en F Leoncio Respiratory Rate 2019-06-06 13:31:00 Jared F Leoncio Systolic (mm Hg) 2018-09-13 18:24:00 [facility] [place] [facility] Diastolic (mm Hg) 2018-09-13 18:24:00 [facility] Heart Rate 2018-09-13 18:24:00 [facility] Temperature Oral (F) 2018-09-13 18:24:00 98.3 F [facility] Systolic (mm Hg) 2018-09-13 14:49:00 [facility] [place] Diastolic (mm Hg) 2018-09-13 14:49:00 [facility] [place] Temperature Oral (F) 2018-09-13 14:49:00 98.4 F [facility] [place] Heart Rate 2018-09-13 14:49:00 [facility] [place] Systolic (mm Hg) 2018-09-13 10:28:00 [facility] [place] Diastolic (mm Hg) 2018-09-13 10:28:00 [facility] Respitory Rate 2018-09-13 10:28:00 M [facility] Temperature Oral (F) 2018-09-13 10:28:00 98.9 F [facility] [place] Heart Rate 2018-09-13 10:28:00 [facility] [place] Respitory Rate 2018-09-13 06:30:00 [facility] Respitory Rate 2018-09-13 02:45:00 [facility] Height 2018-09-11 15:18:00 182.88 cm [facility] [place] BMI Calculated 2018-09-11 15:18:00 [facility] Weight 2018-09-11 15:18:00 [facility] [place] BMI Calculated 2018-09-11 14:16:00 M [facility] [place] Weight 2018-09-11 14:16:00 [facility] [place] Height 2018-09-11 14:16:00 154.94 cm [facility] BMI Calculated 2018-09-11 14:12:00 [facility] Weight 2018-09-11 14:12:00 [facility] [place] Height 2018-09-11 14:12:00 154.94 cm [facility] [place] Procedures Procedure Date / Time Performed Performing Clinician Source CBC WITH DIFF 2025-07-23 20:51:[address] [facility] CT MAXILLOFACIAL/MANDIBLE WO CONTRAST 2025-07-23 20:37:24 Shirley Patterson [facility] LIPASE 2025-04-11 19:48:00 Kellee Munoz [facility] TROPONIN I 2025-04-11 19:48:00 Kellee Munoz [facility] COMP. METABOLIC PANEL (20021) 2025-04-11 19:48:00 Kellee Munoz [facility] CBC WITH DIFF 2025-04-11 19:48:00 [facility] 2025-04-11 19:48:00 Kellee Munoz [facility] FREE T4 2024-11-21 14:49:00 [facility] THYROID STIMULATING HORMONE 2024-11-21 14:49:00 Shirley Patterson [facility] COMP. METABOLIC PANEL (62414) 2024-11-21 14:49:00 Shirley Patterson [facility] CBC WITH DIFF 2024-11-21 14:49:00 Leonardo [facility] RAPID STREP SCREEN FOR GROUP A 2024-11-21 14:49[facility] RSV COVID NAAT 2024-11-21 14:49:00 Shirley Patterson [facility] URINALYSIS 2022-06-23 18:31:00 Yun Asencio [facility] CONSENT/REFUSAL FOR DIAGNOSIS AND TREATMENT 2022-06-23 16:24:11 Doctor Unassigned, [place] [facility] CT CHEST PULMONARY ANGIOGRAM 2022-05-30 23:18:08 Pranay Posadas [facility] URINALYSIS 2022-05-30 22:33:00 [facility]anay [facility] MAGNESIUM 2022-05-30 22:26:00 [facility]anay [facility]adas [facility] TROPONIN I 2022-05-30 22:26:00 [facility]anay [facility]adas [facility] COMP. METABOLIC PANEL (00264) 2022-05-30 22:26:00 Pranay Posadas [facility] CBC WITH DIFF 2022-05-30 22:26:[address] [facility] N-TERMINAL PRO-BNP 2022-05-30 22:26:00 Pranay Posadas [facility] DUPLEX VENOUS LEGS BILATERAL - BY VASCULAR LAB 2022-05-30 22:08:00 Pranay Posadas [facility] CONSENT/REFUSAL FOR DIAGNOSIS AND TREATMENT 2022-05-30 20:57:21 Doctor Unassigned, [place] [facility] PROTHROMBIN TIME / INR 2021-11-30 19:56:00 Ale Calle [facility] ACTIVATED PARTIAL THRMPLAS ALISHA 2021-11-30 19:56:00 Delma Calle [facility] COMP. METABOLIC PANEL (13185) 2021-11-30 17:39:00 Delma Calle [facility] CBC WITH DIFF 2021-11-30 17:39:[address] [facility] NOTICE OF PRIVACY PRACTICES 2021-11-30 16:53:03 Doctor Unassigned, [place] [facility] CONSENT/REFUSAL FOR DIAGNOSIS AND TREATMENT 2021-11-30 16:52:10 Doctor Unassigned, [place] [facility] CONSENT/REFUSAL FOR DIAGNOSIS AND TREATMENT 2020-06-25 22:59:43 Doctor Unassigned, [place] [facility] NOTICE OF PRIVACY PRACTICES 2020-06-25 22:59:23 Doctor Unassigned, [place] [facility] Plan of Care Planned Activity Planned Date Details Comments Source Goal Plan of Care Note [code = 73164-3] Goal Plan of Care Note [code = 54534-9] Goal Plan of Care Note [code = 29154-2] Goal Plan of Care Note [code = 07747-5] Goal Plan of Care Note [code = 00992-6] Goal Plan of Care Note [code = 50144-5] Goal Plan of Care Note [code = 79828-6] Goal Plan of Care Note [code = 27481-6] Goal Plan of Care Note [code = 35205-9] Goal Plan of Care Note [code = 73476-7] Goal Plan of Care Note [code = 58784-5] Goal Plan of Care Note [code = 30957-6] Goal Plan of Care Note [code = 58384-7] Goal Plan of Care Note [code = 92382-0] Goal Plan of Care Note [code = 72517-5] Goal Plan of Care Note [code = 89015-5] Goal Plan of Care Note [code = 83960-5] Goal Plan of Care Note [code = 59808-6] Goal Plan of Care Note [code = 25651-0] Goal Plan of Care Note [code = 01248-4] Goal Plan of Care Note [code = 30686-3] Goal Plan of Care Note [code = 50884-5] Goal Plan of Care Note [code = 29908-3] Goal Plan of Care Note [code = 29360-7] Goal Plan of Care Note [code = 87606-4] Goal Plan of Care Note [code = 18642-7] Goal Plan of Care Note [code = 91685-5] Goal Plan of Care Note [code = 86814-3] Goal Plan of Care Note [code = 08452-7] Goal Plan of Care Note [code = 41758-6] Goal Plan of Care Note [code = 50307-3] Goal Plan of Care Note [code = 11375-3] Goal Plan of Care Note [code = 90638-4] Goal Plan of Care Note [code = 24617-9] Goal Plan of Care Note [code = 18801-5] Goal Plan of Care Note [code = 21985-8] Goal Plan of Care Note [code = 35654-4] Encounters Start Date/Time End Date/Time Encounter Type Admission Type Attending Clinicians Care Facility Care Department Encounter ID Source 2022-09-09 09:35:03 Outpatient [facility] [id number] [facility] 2022-09-08 06:52:35 Outpatient [facility] [id number] [facility] 2022-08-15 10:41:28 Outpatient [facility] [id number] [facility] 2022-06-22 10:55:06 Outpatient [facility] [id number] [facility] 2021-08-07 07:03:41 Emergency [facility] [id number] [facility] 2025-07-23 14:59:00 2025-07-23 17:48:00 Emergency X SHIRLEY PATTERSON DONNELL [facility] ERT [id number] [facility] 2025-07-09 16:12:00 2025-07-09 17:44:00 Emergency X LEONOR RAE [facility] ERT [id number] [facility] 2025-06-23 00:00:00 2025-06-23 00:00:00 Outpatient Visit [facility] [id number] Jared F Leoncio 2025-06-15 20:25:00 2025-06-15 22:49:00 Emergency X KRISTIN MARTINEZ WAKILI [facility] ERT [id number] [facility] 2025-04-21 08:29:59 2025-04-21 08:29:59 Outpatient [id number] [id number] Jared Fang 2025-04-21 00:00:00 2025-04-21 00:00:00 Outpatient Visit [facility] [id number] Jared Fang 2025-04-18 08:18:32 2025-04-18 08:18:32 Outpatient SFA [id number] [id number] Jared Fang 2025-04-14 13:36:26 2025-04-14 13:36:26 Outpatient SFA [facility] [id number] Jared Fang 2025-04-14 00:00:00 2025-04-14 00:00:00 Outpatient Visit [facility] [id number] Jared Fang 2025-04-11 14:17:00 2025-04-11 17:38:00 Emergency X KELLEE MUNOZ ROBERT [facility] ERT [id number] [facility] 2024-11-25 10:31:24 2024-11-25 10:31:24 Outpatient [facility] [id number] Jared Fang 2024-11-21 08:24:00 2024-11-21 10:19:00 Emergency X SHIRLEY PATTERSON DONNELL [facility] ERT [id number] [facility] 2024-11-21 08:24:00 2024-11-21 10:19:00 Emergency Shirley Patterson [facility] 1.840.114 350.1.13.10 4.2.7.2.686 [id number] [facility] 2024-11-06 00:00:00 2024-11-06 10:58:00 Letter (Out) Campaigns, Generic Provider Campaigns, Generic Provider [facility] ([facility] 1.2.840.114 350.1.13.10 4.2.7.2.686 [id number] [facility] 2024-11-01 09:26:38 2024-11-01 09:26:38 Outpatient [facility] [id number] Jared Fang 2024-10-26 04:28:00 2024-10-26 04:33:00 Emergency X NARESH RUFFIN PHILLIP [facility] ERT [id number] [facility] 2024-10-26 04:28:00 2024-10-26 04:33:00 Emergency Naresh [facility] 1.2.840.114 350.1.13.10 4.2.7.2.686 [id number] [facility] 2023-12-30 16:48:00 2023-12-30 19:48:00 Emergency X JOSE PEREIRA [facility] ERT [id number] [facility] 2022-09-27 11:00:00 2022-09-27 11:21:29 Office [address] Joao Sanchez [facility] 1 1.2.840.114 350.1.13.58 9.2.7.2.686 [id number] [facility] 2022-09-20 10:15:00 2022-09-20 10:15:00 Outpatient JOAO SANCHEZ [facility] [id number] [facility] 2022-09-19 14:30:00 2022-09-19 14:30:00 Outpatient [facility] [id number] [facility] 2022-09-09 07:45:00 2022-09-09 10:06:42 [address] En[address] Joao Sanchez [facility] 1 1.2.840.114 350.1.13.58 9.2.7.2.686 [id number] [facility] 2022-08-15 10:20:20 2022-08-15 10:20:20 Outpatient [facility] [id number] Jared Burns Leoncio 2022-08-08 13:13:33 2022-08-08 13:13:33 Outpatient [facility] [id number] Jared Burns Leoncio 2022-07-13 13:37:52 2022-07-13 13:37:52 Outpatient [facility] [id number] Jared Fang 2022-06-23 11:40:00 2022-06-23 15:00:00 Emergency X YUN ASENCIO [facility] ERT [id number] [facility] 2022-06-23 11:40:00 2022-06-23 15:00:00 Emergency Asencio Yun S [facility] 1..840.114 350.1.13.10 4.2.7.2.686 [id number] [facility] 2022-06-23 00:00:00 2022-06-23 00:00:00 Orders Only Doctor Unassigned, [place] [facility] 1..840.114 350.1.13.10 4.2.7.2.686 [id number] [facility] 2022-06-21 00:00:00 2022-06-21 00:00:00 Outpatient Visit [id number] 2022-06-07 00:00:00 2022-06-07 00:00:00 Outpatient Visit [id number] 2022-05-30 16:11:00 2022-05-30 20:10:00 Emergency Pranay Posadas [facility] 1..840.114 350.1.13.10 4.2.7.2.686 [id number] [facility] 2022-05-30 16:11:00 2022-05-30 20:10:00 Emergency X Pranay POSADAS [facility] ERT [id number] [facility] 2022-05-30 00:00:00 2022-05-30 00:00:00 Outpatient Visit [id number] 11:09:00 2021-11-30 15:19:00 Emergency X ASHLEY CALLEN [facility] ERT [id number] [facility] 2021-11-30 11:09:00 2021-11-30 15:19:00 Emergency Delma Calle [facility] 1.2.840.114 350.1.13.10 4.2.7.2.686 [id number] [facility] 2020-08-29 10:41:00 2020-08-29 11:11:00 Emergency Shobha [facility] 1.2.840.114 350.1.13.10 4.2.7.2.686 [id number] [facility] 2020-08-29 10:41:00 2020-08-29 11:11:00 Emergency Shobha [facility] 1.2.840.114 350.1.13.10 4.2.7.2.686 [id number] 2020-06-25 18:12:00 2020-06-25 20:18:00 Emergency Manny [facility] 1.2.840.114 350.1.13.10 4.2.7.2.686 [id number] [facility] 2020-06-25 18:12:00 2020-06-25 20:18:00 Emergency Yoly Manny [facility] 1.2.840.114 350.1.13.10 4.2.7.2.686 [id number] 2020-06-25 18:00:00 2020-06-25 18:00:00 Emergency X [facility] ERT [id number] [facility] 2020-05-19 00:00:00 2020-05-19 00:00:00 [facility] 1.2.840.114 350.1.13.10 4.2.7.2.686 [id number] 2020-05-07 00:00:00 2020-05-07 00:00:00 [facility] 1.2.840.114 350.1.13.10 4.2.7.2.686 [id number] 2020-05-04 00:00:00 2020-05-04 00:00:00 Orders Only Doctor Unassigned, [place] [facility] 1.2.840.114 350.1.13.10 4.2.7.2.686 [id number] 2019-06-21 09:40:26 2019-06-26 11:39:18 Office Visit Elaine Arana [facility] 1.2.840.114 350.1.13.10 4.2.7.2.686 [id number] 2019-06-25 00:00:00 2019-06-25 00:00:00 Telephone [facility] 1.2.840.114 350.1.13.10 4.2.7.2.686 [id number] 2018-09-11 13:17:00 2018-09-13 19:31:00 Inpatient nullFlavo r [facility] [id number] 38 Laura brewer [place] Results Test Description Test Time Test Comments Results Result Co mments [facility] 2025-07-23 20:52:24CT MAXILLOFACIAL/MANDIBLE WO CONTRAST HISTORY: right jaw pain COMPARISON: ?Prior imaging. TECHNIQUE: ?Nonenhanced CT scan of the face was done in multipledimensions. FINDINGS: The facial soft tissuesare unremarkable. The orbits, globes and other intraorbital structures are unremarkable. The mastoid air cells are clear. Polypoid mucoperiosteal thickening seeninvolving both maxillary sinuses rightmore than left. The other visualizedparanasal sinuses are clear. The oral cavity and dentition are unremarkable. Bifid right mandibularcondyle (normal variant). No significant osteoarthritic changes s eensurrounding the right temporal mandibular joint. Unremarkable lefttemporomandibular joint. The submandibular and parotid glands are unremarkable. The visualized portions of the pharynx are [facility]remarkable.[id number] 20:34:32* Test Item Value Reference Range Interpretation Comme nts TROPONIN I (test code = 2566908488) 0.017 ng/mL <=0.034 ANNIE (test code = ANNIE) Reference (Normal) Range (defined by the 99th percentile reference limit): <= 0.034 ng/mL Note: Cardiac troponin begins to rise 3-4 hours after the onset of ischemia. Repeat in 4-6 hours if the sample was drawn within 3-4 hours of the onset of the symptom and found normal. Diagnosis of myocardial injury is made with acute changes in cTn concentrations with at least one serial sample above the 99th percentile upper reference limit (URL), taken together with the patient's clinical presentation. Biotin has been reported to cause a negative bias, interpret results relative to patient's use of biotin. Lab Interpretation (test code = 69676-1) Normal [facility] [id number] 20:32:11* Test Item Value Reference Range Interpretation Comme [facility] NT-proBNP (test code = 48863-7) 163 pg/mL <=125 ANNIE (test code = ANNIE) Result Indeterminate-Consid er causes of NT-proBNP elevation other than Heart failure such as acute coronary syndrome, pulmonary embolism, pulmonary hypertension, sepsis, stroke, and renal dysfunction. Lab Interpretation (test code = 31983-6) Abnormal [facility]. METABOLIC PANEL (57773)2025-04-11 20:23:09* Test Item Value Reference Range Interpretation Comme nts NA (test code = 7589482245) 138 mmol/L 135-145 K (test code = 7471245319) 3.6 mmol/L 3.5-5.0 CL (test code = 7750526301) 103 mmol/L 98-108 CO2 TOTAL (test code = 4460109402) 25 mmol/L 23-31 AGAP (test code = 6773465923) 10 2-16 BUN (test code = 8002606010) 22 mg/dL 7-23 GLUCOSE (test code = 2751242575) 94 mg/dL 70-110 CREATININE (test code = 2160-0) 0.86 mg/dL 0.60-1.25 TOTAL BILI (test code = 4181892051) 1.9 mg/dL 0.1-1.1 H CALCIUM (test code = 1675699651) 9.2 mg/dL 8.6-10.6 T PROTEIN (test code = 0340579222) 8.2 g/dL 6.3-8.2 ALBUMIN (test code = 6663479876) 4.3 g/dL 3.5-5.0 ALK PHOS (test code = 1793116266) 87 U/L 34-122 ALTv (test code = 1742-6) 90 U/L 5-50 H AST(SGOT) (test code = 2211294150) 116 U/L 13-40 H eGFR (test code = 57147-1) 111.6 mL/min/1.73m2 CKD-EPI eGFR (2020). Assuming creatinine has been stable day-to-day for at least three months, the eGFR indicates Category G1 (>= 90 mL/min/1.73 m2) Lab Interpretation (test code = 82089-1) [facility]normal [facility] 20:22:29* Test Item Value Reference Range Interpretation Comme nts LIPASE (test code = 7512434154) 40 U/L 0-220 Lab Interpretation (test cod e = 19897-6) Normal [facility] WITH [id number] 20:10:09* Test Item Value Reference Range Interpretation Comme nts WBC (test code = 6690-2) 10.42 4.20-10.70 RBC (test code = 789-8) 5.2 4.26-5.52 HGB (test code = 718-7) 15.7 g/dL 12.2-16.4 HCT (test code = 4544-3) 46.8 % 38.4-49.3 MCV (test code = 787-2) 90 fL 81.7-95.6 MCH (test code = 785-6) 30.2 pg 26.1-32.7 MCHC (test code = 786-4) 33.5 g/dL 31.2-35.0 RDW-SD (test code = 64992-0) 46.4 fL 38.5-51.6 RDW-CV (test code = 788-0) 14 % 12.1-15.4 PLT (test code = 777-3) 275 150-328 MPV (test code = 62484-1) 10.7 fL 9.8-13.0 NRBC/100 WBC (test code = 5367170207) 0 0.0-10.0 NRBC x10^3 (test code = 3866918979) See_Comment [Automated me ssage] The system which generated this result transmitted reference range: 10*3/?L. The reference range was not used to interpret this result as normal/abnormal. GRAN MAT (NEUT) % (test code = 770-8) 65.9 % IMM GRAN % (test code = 0774562445) 0.4 % LYMPH % (test code = 736-9) 21.8 % MONO % (test code = 5905-5) 8 % EOS % (test code = 713-8) 3.1 % BASO % (test code = 706-2) 0.8 % GRAN MAT x10^3(ANC) (test code = 1545199941) 6.88 10*3/uL 1.99-6.95 IMM GRAN x10^3 (test code = 6666358104) 0.04 10*3/uL 0.00-0.06 LYMPH x10^3 (test code = 731-0) 2.27 10*3/uL 1.09-3.23 MONO x10^3 (test code = 742-7) 0.83 10*3/uL 0.36-1.02 EOS x10^3 (test code = 711-2) 0.32 10*3/uL 0.06-0.53 BASO x10^3 (test code = 704-7) 0.08 10*3/uL 0.01-0.09 [facility] [id number] 15:58:35 * Test Item Value Reference Range Interpretation Comme nts TSH (test code = 1961451383) 3.84 0.45-4.70 Biotin has been reported to cause a negative bias, interpret results relative to patient's use of biotin. Lab Interpretation (test code = 35761-6) Normal [facility] [id number] 15:44:57* Test Item Value Reference Range Interpretation Comme nts FREE T4 (test code = 3792115132) 1.39 ng/dL 0.78-2.20 Lab Interpretation (test cod e = 50193-4) Normal [facility]. METABOLIC PANEL (80760)2024-11-21 15:27:49* Test Item Value Reference Range Interpretation Comme nts NA (test code = 2175761630) 137 mmol/L 135-145 K (test code = 6596995340) 4.6 mmol/L 3.5-5.0 CL (test code = 3245375637) 105 mmol/L 98-108 CO2 TOTAL (test code = 5636193816) 25 mmol/L 23-31 AGAP (test code = 7160522341) 7 2-16 BUN (test code = 1363121929) 13 mg/dL 7-23 GLUCOSE (test code = 7225637294) 105 mg/dL 70-110 CREATININE (test code = 2160-0) 0.64 mg/dL 0.60-1.25 TOTAL BILI (test code = 4739985374) 0.8 mg/dL 0.1-1.1 CALCIUM (test code = 2599483221) 9.0 mg/dL 8.6-10.6 T PROTEIN (test code = 4162064861) 8.3 g/dL 6.3-8.2 H ALBUMIN (test code = 4537133379) 4.6 g/dL 3.5-5.0 ALK PHOS (test code = 7213920342) 76 U/L 34-122 ALTv (test code = 1742-6) 78 U/L 5-50 H AST(SGOT) (test code = 5540639629) 54 U/L 13-40 H eGFR (test code = 01597-2) 122.0 mL/min/1.73m2 CKD-EPI eGFR (2020). Assuming creatinine has been stable day-to-day for at least three months, the eGFR indicates Category G1 (>= 90 mL/min/1.73 m2) Lab Interpretation (test code = 90191-3) Abnormal [facility] WITH [id number] 15:13:09* Test Item Value Reference Range Interpretation Comme nts WBC (test code = 6690-2) 10.07 4.20-10.70 RBC (test code = 789-8) 5.16 4.26-5.52 HGB (test code = 718-7) 15.9 g/dL 12.2-16.4 HCT (test code = 4544-3) 46.5 % 38.4-49.3 MCV (test code = 787-2) 90.1 fL 81.7-95.6 MCH (test code = 785-6) 30.8 pg 26.1-32.7 MCHC (test code = 786-4) 34.2 g/dL 31.2-35.0 RDW-SD (test code = 52020-4) 45.5 fL 38.5-51.6 RDW-CV (test code = 788-0) 13.6 % 12.1-15.4 PLT (test code = 777-3) 253 150-328 MPV (test code = 28632-1) 11.0 fL 9.8-13.0 NRBC/100 WBC (test code = 1550523086) 0.0 0.0-10.0 NRBC x10^3 (test code = 5554634543) See_Comment [Automated messa ge] The system which generated this result transmitted reference range: 10*3/?L. The reference range was not used to interpret this result as normal/abnormal. GRAN MAT (NEUT) % (test code = 770-8) 71.2 % IMM GRAN % (test code = 3133545645) 0.30 % LYMPH % (test code = 736-9) 18.2 % MONO % (test code = 5905-5) 8.0 % EOS % (test code = 713-8) 1.6 % BASO % (test code = 706-2) 0.7 % GRAN MAT x10^3(ANC) (test code = 8729505265) 7.17 10*3/uL 1.99-6.95 H IMM GRAN x10^3 (test code = 4329374187) 0.03 10*3/uL 0.00-0.06 LYMPH x10^3 (test code = 731-0) 1.83 10*3/uL 1.09-3.23 MONO x10^3 (test code = 742-7) 0.81 10*3/uL 0.36-1.02 EOS x10^3 (test code = 711-2) 0.16 10*3/uL 0.06-0.53 BASO x10^3 (test code = 704-7) 0.07 10*3/uL 0.01-0.09 Lab Interpretation (test code = 05780-6) Abnormal [facility] (PT)2022-08-16 00:00:00* Test Item Value Reference Range Interpretation Comme nts PROTHROMBIN TIME (PT) (test code = 1402) 20.8 SECONDS INR (test code = 76917) 1.7 Jared Burns AustinPROTHROMBIN TIME (PT)2022-08-16 00:00:00* Test Item Value Reference Range Interpretation Comme nts PROTHROMBIN TIME (PT) (test code = 1402) 20.8 SECONDS INR (test code = 08359) 1.7 Jared Burns AustinPROTHROMBIN TIME (PT)2022-08-16 00:00:00* Test Item Value Reference Range Interpretation Comme nts PROTHROMBIN TIME (PT) (test code = 1402) 20.8 SECONDS INR (test code = 46695) 1.7 Jared F AustinPROTHROMBIN TIME (PT)2022-08-09 00:00:00* Test Item Value Reference Range Interpretation Comme nts PROTHROMBIN TIME (PT) (test code = 1402) 55.2 SECONDS INR (test code = 00212) 6.2 Jared F AustinPROTHROMBIN TIME (PT)2022-08-09 00:00:00* Test Item Value Reference Range Interpretation Comme nts PROTHROMBIN TIME (PT) (test code = 1402) 55.2 SECONDS INR (test code = 95193) 6.2 Jared F AustinPROTHROMBIN TIME (PT)2022-08-09 00:00:00* Test Item Value Reference Range Interpretation Comme nts PROTHROMBIN TIME (PT) (test code = 1402) 55.2 SECONDS INR (test code = 26653) 6.2 Jared Burns AustinPROTHROMBIN TIME (PT)2022-07-14 02:57:12* Test Item Value Reference Range Interpretation Comme nts PROTHROMBIN TIME (PT) (test code = 1402) 13.1 SECONDS 12.5-14.7 INR (test code = 87492) 1.0 SEE BELOW CURRENT RECOMMENDATIONS ARE FOR AN INR OF 2.0-3.0 FOR ALL PATIENTS ON VITAMIN K ANTAGONISTS, EXCEPT THOSE WITH PROSTHETIC HEART VALVES, FOR WHOM INR OF 2.5-3.5 IS RECOMMENDED. UNLESS OTHERWISE INDICATED, ALL TESTING PERFORMED [facility] [employer] [address] [place] [address] MANAGER SOCIAL WORK: ROCHELLE COBB M.D. [place] NUMBER [id number] [facility] [place]. [id number] PROTHROMBIN TIME (PT)2022-07-14 00:00:00* Test Item Value Reference Range Interpretation Comme nts PROTHROMBIN TIME (PT) (test code = 1402) 13.1 SECONDS INR (test code = 68597) 1.0 Jared Burns AustinPROTHROMBIN TIME (PT)2022-07-14 00:00:00* Test Item Value Reference Range Interpretation Comme nts PROTHROMBIN TIME (PT) (test code = 1402) 13.1 SECONDS INR (test code = 42757) 1.0 Jared Burns AustinPROTHROMBIN TIME (PT)2022-07-14 00:00:00* Test Item Value Reference Range Interpretation Comme nts PROTHROMBIN TIME (PT) (test code = 1402) 13.1 SECONDS INR (test code = 17973) 1.0 Jared Burns AustinPROTHROMBIN TIME (PT)2022-06-30 03:27:40* Test Item Value Reference Range Interpretation Comme nts PROTHROMBIN TIME (PT) (test code = 1402) 38.5 SECONDS 12.5-14.7 H INR (test code = 33329) 3.9 SEE BELOW H CURRENT RECOMMENDATIONS ARE FOR AN INR OF 2.0-3.0 FOR ALL PATIENTS ON VITAMIN K ANTAGONISTS, EXCEPT THOSE WITH PROSTHETIC HEART VALVES, FOR WHOM INR OF 2.5-3.5 IS RECOMMENDED. UNLESS OTHERWISE INDICATED, ALL TESTING PERFORMED [employer] [facility] [employer] [address] [place] [address] MANAGER SOCIAL WORK: Rose ESCOBARIA NUMBER [id number] [place]. [id number] PROTHROMBIN TIME (PT)2022-06-30 00:00:00* Test Item Value Reference Range Interpretation Comme nts PROTHROMBIN TIME (PT) (test code = 1402) 38.5 SECONDS INR (test code = 08148) 3.9 Jared F AustinPROTHROMBIN TIME (PT)2022-06-30 00:00:00* Test Item Value Reference Range Interpretation Comme nts PROTHROMBIN TIME (PT) (test code = 1402) 38.5 SECONDS INR (test code = 81510) 3.9 Jared F AustinPROTHROMBIN TIME (PT)2022-06-30 00:00:00* Test Item Value Reference Range Interpretation Comme nts PROTHROMBIN TIME (PT) (test code = 1402) 38.5 SECONDS INR (test code = 87299) 3.9 Jared F AustinPROTHROMBIN TIME (PT)2022-06-22 03:18:18* Test Item Value Reference Range Interpretation Comme nts PROTHROMBIN TIME (PT) (test code = 1402) 36.3 SECONDS 12.5-14.7 H INR (test code = 14928) 3.6 SEE BELOW H CURRENT RECOMMENDATIONS ARE FOR AN INR OF 2.0-3.0 FOR ALL PATIENTS ON VITAMIN K ANTAGONISTS, EXCEPT THOSE WITH PROSTHETIC HEART VALVES, FOR WHOM INR OF 2.5-3.5 IS RECOMMENDED. UNLESS OTHERWISE INDICATED, ALL TESTING PERFORMED [employer] [facility] [employer] [address] [place] [address] 12461 MANAGER SOCIAL WORK: ROCHELLE COBB M.D. CLIA NUMBER [id number] [place]. [id number] PROTHROMBIN TIME (PT)2022-06-22 00:00:00* Test Item Value Reference Range Interpretation Comme nts PROTHROMBIN TIME (PT) (test code = 1402) 36.3 SECONDS INR (test code = 81190) 3.6 Jared F AustinPROTHROMBIN TIME (PT)2022-06-22 00:00:00* Test Item Value Reference Range Interpretation Comme nts PROTHROMBIN TIME (PT) (test code = 1402) 36.3 SECONDS INR (test code = 71443) 3.6 Jared Burns AustinPROTHROMBIN TIME (PT)2022-06-22 00:00:00* Test Item Value Reference Range Interpretation Comme nts PROTHROMBIN TIME (PT) (test code = 1402) 36.3 SECONDS INR (test code = 72826) 3.6 Jared Burns AustinPROTHROMBIN TIME (PT)2022-06-08 03:01:49* Test Item Value Reference Range Interpretation Comme nts PROTHROMBIN TIME (PT) (test code = 1402) 20.7 SECONDS 12.5-14.7 H INR (test code = 24769) 1.7 SEE BELOW CURRENT RECOMMENDATIONS ARE FOR AN INR OF 2.0-3.0 FOR ALL PATIENTS ON VITAMIN K ANTAGONISTS, EXCEPT THOSE WITH PROSTHETIC HEART VALVES, FOR WHOM INR OF 2.5-3.5 IS RECOMMENDED. UNLESS OTHERWISE INDICATED, ALL TESTING PERFORMED [facility] [employer] [address] [place] [address] MANAGER SOCIAL WORK: ROCHELLE COBB M.D. CLIA NUMBER [id number] [facility] [place]. [id number] PROTHROMBIN TIME (PT)2022-06-08 00:00:00* Test Item Value Reference Range Interpretation Comme nts PROTHROMBIN TIME (PT) (test code = 1402) 20.7 SECONDS INR (test code = 18223) 1.7 Jared Burns AustinPROTHROMBIN TIME (PT)2022-06-08 00:00:00* Test Item Value Reference Range Interpretation Comme nts PROTHROMBIN TIME (PT) (test code = 1402) 20.7 SECONDS INR (test code = 90764) 1.7 PROTHROMBIN TIME (PT)2022-06-08 00:00:00* Test Item Value Reference Range Interpretation Comme nts PROTHROMBIN TIME (PT) (test code = 1402) 20.7 SECONDS INR (test code = 50573) 1.7 Jared Burns AustinPROTHROMBIN TIME (PT)2022-06-08 00:00:00* Test Item Value Reference Range Interpretation Comme nts PROTHROMBIN TIME (PT) (test code = 1402) 20.7 SECONDS INR (test code = 34241) 1.7 Jared Burns LeoncioTROPONIN [id number] 23:26:23* Test Item Value Reference Range Interpretation Comments TROPONIN I (test code = 4278710783) 0.003 ng/mL See_Comment [Automated message] The system which generated this result transmitted reference range: <=0.034. The reference range was not used to interpret this result as normal/abnormal. ANNIE (test code = ANNIE) Reference (Normal) Range (defined by the 99th percentile reference limit): <= 0.034 ng/mL Note: Cardiac troponin begins to rise 3-4 hours after the onset of ischemia. Repeat in 4-6 hours if the sample was drawn within 3-4 hours of the onset of the symptom and found normal. Diagnosis of myocardial injury is made with acute changes in cTn concentrations with at least one serial sample above the 99th percentile upper reference limit (URL), taken together with the patient's clinical presentation. Biotin has been reported to cause a negative bias, interpret results relative to patient's use of biotin. Lab Interpretation (test code = 32073-9) Normal [facility] WestN-TERMINAL [id number] 23:23:19* Test Item Value Reference Range Interpretation Comme nts NT-proBNP (test code = 2378730822) 35 pg/mL See_Comment [Automated message] The system which generated this result transmitted reference range: <=125. The reference range was not used to interpret this result as normal/abnormal. ANNIE (test code = ANNIE) Biotin has been reported to cause a negative bias, interpret results relative to patient's use of biotin. Lab Interpretation (test code = 80093-1) Normal [facility] WestMAGNESIUM2022-08-22 23:15:02* Test Item Value Reference Range Interpretation Comme nts MAGNESIUM (test code = 6937182169) 1.8 mg/dL 1.7-2.4 Lab Interpretation (test cod e = 86578-6) Normal [facility] WestCOMP. METABOLIC PANEL (38949)2022-05-30 23:14:41* Test Item Value Reference Range Interpretation Comme nts NA (test code = 9818453967) 139 mmol/L 135-145 K (test code = 7584772129) 3.7 mmol/L 3.5-5 CL (test code = 7028727918) 103 mmol/L 98-108 CO2 TOTAL (test code = 4561695028) 29 mmol/L 23-31 AGAP (test code = 5874662185) 2-16 BUN (test code = 3340180955) 15 mg/dL 7-23 GLUCOSE (test code = 6808170716) 106 mg/dL 70-110 CREATININE (test code = 1995920904) 1.04 mg/dL 0.6-1.25 TOTAL BILI (test code = 2476979242) 0.2 mg/dL 0.1-1.1 CALCIUM (test code = 9368101290) 8.9 mg/dL 8.6-10.6 T PROTEIN (test code = 5323346822) 7.0 g/dL 6.3-8.2 ALBUMIN (test code = 9163213146) 4.2 g/dL 3.5-5 ALK PHOS (test code = 6155497818) 58 U/L 34-122 ALTv (test code = 1742-6) 52 U/L 5-50 H AST(SGOT) (test code = 7898872523) 37 U/L 13-40 eGFR (test code = 3749627104) mL/min/1.73m2 ANNIE (test code = ANNIE) Association of Glomerular Filtration Rate (GFR) and Staging of Kidney Disease* + --+ --+ ------+| GFR (mL/min/1.73 m2) ?| With Kidney Damage ?| ?Without Kidney Damage+ --------+ --------+ +| ?>90 ?| ?Stage one ?| ? Normal ?+ ---+ ---+ -------+| ?60-89 ?| ?Stage two ?| ? Decreased GFR ? + --+ --+ ------+| ?30-59 ?| ?Stage three ?| ? Stage three ? + --+ --+ ------+| ?15-29 ?| ?Stage four ? | ? Stage four ?+ ---+ ---+ -------+| ?<15 (or dialysis) ? ?| ?Stage five ? | ? Stage five ?+ ---+ ---+ -------+ *Each stage assumes the associated GFR level has been in effect for at least three months. ?Stages 1 to 5, with or without kidney disease, indicate chronic kidney disease. Notes: Determination of stages one and two (with eGFR >59mL/min/1.73 m2) requires estimation of kidney damage for at least three months as defined by structural or functional abnormalities of the kidney, manifested by either:Pathological abnormalities or Markers of kidney damage (including abnormalities in the composition of the blood or urine or abnormalities in imaging tests). Lab Interpretation (test code = 39952-4) Abnormal [facility] WITH [id number] 22:56:19* Test Item Value Reference Range Interpretation Comme nts WBC (test code = 6690-2) See_Comment [Automated [employer] ge] The system which generated this result transmitted reference range: 4.20 - 10.70 10*3/?L. The reference range was not used to interpret this result as normal/abnormal. RBC (test code = 789-8) See_Comment [Automated [employer]a ge] The system which generated this result transmitted reference range: 4.26 - 5.52 10*6/?L. The reference range was not used to interpret this result as normal/abnormal. HGB (test code = 718-7) 14.4 g/dL 12.2-16.4 HCT (test code = 4544-3) 41.8 % 38.4-49.3 MCV (test code = 787-2) 88.9 fL 81.7-95.6 MCH (test code = 785-6) 30.6 pg 26.1-32.7 MCHC (test code = 786-4) 34.4 g/dL 31.2-35 RDW-SD (test code = 64371-2) 43.4 fL 38.5-51.6 RDW-CV (test code = 788-0) 13.2 % 12.1-15.4 PLT (test code = 777-3) See_Comment [Automated Tyfonea ge] The system which generated this result transmitted reference range: 150 - 328 10*3/?L. The reference range was not used to interpret this result as normal/abnormal. MPV (test code = 76877-0) 10.1 fL 9.8-13 NRBC/100 WBC (test code = 0703073949) See_Comment [Automated [employer] ssage] The system which generated this result transmitted reference range: 0.0 - 10.0 /100 WBCs. The reference range was not used to interpret this result as normal/abnormal. NRBC x10^3 (test code = 1651403540) See_Comment [Automated me ssage] The system which generated this result transmitted reference range: 10*3/?L. The reference range was not used to interpret this result as normal/abnormal. GRAN MAT (NEUT) % (test code = 770-8) 54.0 % IMM GRAN % (test code = 1867253938) 0.60 % LYMPH % (test code = 736-9) 33.7 % MONO % (test code = 5905-5) 7.4 % EOS % (test code = 713-8) 3.6 % BASO % (test code = 706-2) 0.7 % GRAN MAT x10^3(ANC) (test code = 1304839234) 3.88 10*3/uL 1.99-6.95 IMM GRAN x10^3 (test code = 2172736765) 0.04 10*3/uL 0-0.06 LYMPH x10^3 (test code = 731-0) 2.42 10*3/uL 1.09-3.23 MONO x10^3 (test code = 742-7) 0.53 10*3/uL 0.36-1.02 EOS x10^3 (test code = 711-2) 0.26 10*3/uL 0.06-0.53 BASO x10^3 (test code = 704-7) 0.05 10*3/uL 0.01-0.09 [facility] WestACTIV[facility] PARTIAL THRMPLAS [id number] 20:12:54* Test Item Value Reference Range Interpretation Comme nts APTT Patient (test code = 3173-2) See_Comment [Automated message] The system which generated this result transmitted reference range: 23 - 38 Seconds. The reference range was not used to interpret this result as normal/abnormal. ANNIE (test code = ANNIE) The [facility] patient population mean normal value for aPTT is 30 seconds. Lab Interpretation (test code = 96703-7) Normal [facility] WestPROTHROMBIN TIME / [id number] 20:10:57* Test Item Value Reference Range Interpretation Comme nts PROTIME PATIENT (test code = 5964-2) See_Comment [Automated messa ge] The system which generated this result transmitted reference range: 12.0 - 14.7 Seconds. The reference range was not used to interpret this result as normal/abnormal. INR (test code = 6301-6) Normal INR <1.1; Warfarin Therapeutic range 2.0 to 3.0 or 2.5 to 3.5, depending upon the indications. Lab Interpretation (test code = 94561-0) Normal [facility]. METABOLIC PANEL (93117)2021-11-30 18:21:38* Test Item Value Reference Range Interpretation Comme nts NA (test code = 2668349308) 137 mmol/L 135-145 K (test code = 7809308583) 4.6 mmol/L 3.5-5.0 CL (test code = 6751610477) 102 mmol/L 98-108 CO2 TOTAL (test code = 7681630173) 30 mmol/L 23-31 AGAP (test code = 2008401083) 2-16 BUN (test code = 6584403909) 10 mg/dL 7-23 GLUCOSE (test code = 0593604612) 94 mg/dL 70-110 CREATININE (test code = 8703840029) 0.76 mg/dL 0.60-1.25 TOTAL BILI (test code = 7717449702) 0.6 mg/dL 0.1-1.1 CALCIUM (test code = 8626334280) 8.6 mg/dL 8.6-10.6 T PROTEIN (test code = 2872747195) 7.6 g/dL 6.3-8.2 ALBUMIN (test code = 0980878343) 4.0 g/dL 3.5-5.0 ALK PHOS (test code = 6324451499) 90 U/L 34-122 ALTv (test code = 1742-6) 48 U/L 5-50 AST(SGOT) (test code = 4089400686) 37 U/L 13-40 eGFR (test code = 1479706747) mL/min/1.73m2 ANNIE (test code = ANNIE) Association of Glomerular Filtration Rate (GFR) and Staging of Kidney Disease* + + +- +| GFR (mL/min/1.73 m2) ?| With Kidney Damage ?| ?Without Kidney Damage+ ------+ ----+ ------+| ?>90 ?| ?Stage one ?| ? Normal ?+ -+ + -+| ?60-89 ?| ?Stage two ?| ? Decreased GFR ? + + +- +| ?30-59 ?| ?Stage three ?| ? Stage three ? + + +- +| ?15-29 ?| ?Stage four ? | ? Stage four ?+ -+ + -+| ?<15 (or dialysis) ? ?| ?Stage five ? | ? Stage five ?+ -+ + -+ *Each stage assumes the associated GFR level has been in effect for at least three months. ?Stages 1 to 5, with or without kidney disease, indicate chronic kidney disease. Notes: Determination of stages one and two (with eGFR >59mL/min/1.73 m2) requires estimation of kidney damage for at least three months as defined by structural or functional abnormalities of the kidney, manifested by either:Pathological abnormalities or Markers of kidney damage (including abnormalities in the composition of the blood or urine or abnormalities in imaging tests). [facility] WITH [id number] 17:53:36* Test Item Value Reference Range Interpretation Comme nts WBC (test code = 6690-2) See_Comment H [[employer]] The system which generated this result transmitted reference range: 4.20 - 10.70 10*3/?L. The reference range was not used to interpret this result as normal/abnormal. RBC (test code = 789-8) See_Comment [[employer]] The system which generated this result transmitted reference range: 4.26 - 5.52 10*6/?L. The reference range was not used to interpret this result as normal/abnormal. HGB (test code = 718-7) 13.4 g/dL 12.2-16.4 HCT (test code = 4544-3) 39.9 % 38.4-49.3 MCV (test code = 787-2) 88.7 fL 81.7-95.6 MCH (test code = 785-6) 29.8 pg 26.1-32.7 MCHC (test code = 786-4) 33.6 g/dL 31.2-35.0 RDW-SD (test code = 05379-1) 45.7 fL 38.5-51.6 RDW-CV (test code = 788-0) 14.2 % 12.1-15.4 PLT (test code = 777-3) See_Comment [Automated messa ge] The system which generated this result transmitted reference range: 150 - 328 10*3/?L. The reference range was not used to interpret this result as normal/abnormal. MPV (test code = 79694-3) 9.9 fL 9.8-13.0 NRBC/100 WBC (test code = 4850314146) See_Comment [Automated [employer] ssage] The system which generated this result transmitted reference range: 0.0 - 10.0 /100 WBCs. The reference range was not used to interpret this result as normal/abnormal. NRBC x10^3 (test code = 4374730000) <0.01 See_Comment [Automated messa ge] The system which generated this result transmitted reference range: 10*3/?L. The reference range was not used to interpret this result as normal/abnormal. GRAN MAT (NEUT) % (test code = 770-8) 67.8 % IMM GRAN % (test code = 4731591900) 0.60 % LYMPH % (test code = 736-9) 20.4 % MONO % (test code = 5905-5) 7.3 % EOS % (test code = 713-8) 3.4 % BASO % (test code = 706-2) 0.5 % GRAN MAT x10^3(ANC) (test code = 2450423731) 8.87 10*3/uL 1.99-6.95 H IMM GRAN x10^3 (test code = 5447657604) 0.08 10*3/uL 0.00-0.06 H LYMPH x10^3 (test code = 731-0) 2.67 10*3/uL 1.09-3.23 MONO x10^3 (test code = 742-7) 0.95 10*3/uL 0.36-1.02 EOS x10^3 (test code = 711-2) 0.45 10*3/uL 0.06-0.53 BASO x10^3 (test code = 704-7) 0.07 10*3/uL 0.01-0.09 Lab Interpretation (test code = 66350-8) Abnormal [facility]CHE[facility] [id number] 12:52:00* Test Item Value Reference Range Interpretation Comme nts A/G Ratio (test code = A/G Ratio) 0.8 1 0.7-1.6 Globulin (test code = Globulin) 3.8 2.7-4.2 AGAP (test code = AGAP) 12.8 10.0-20.0 B/C Ratio (test code = B/C Ratio) 13 1 6-25 eGFR (test code = eGFR) 108 Bili Total (test code = Bili Total) 0.7 0.2-1.3 ALT (test code = ALT) 166 <=65 AST (test code = AST) 388 <=37 Alk Phos (test code = Alk Phos) 61 39-136 Albumin Lvl (test code = Albumin Lvl) 3.0 3.5-5.0 Potassium Lvl (test code = P otassium Lvl) 3.8 3.5-5.1 Chloride Lvl (test code = Chloride Lvl) 102 95-109 Glucose Lvl (test code = Glucose Lvl) 101 70-99 BUN (test code = BUN) 12 7-22 Sodium Lvl (test code = Sodium Lvl) 136 135-145 Calcium Lvl (test code = Calcium Lvl) 8.2 8.5-10.5 Total Protein (test code = T otal Protein) 6.8 6.4-8.4 CO2 (test code = CO2) 25 24-32 Creatinine Lvl (test code = Creatinine Lvl) 0.91 0.50-1.40 [id number] 12:52:00* Test Item Value Reference Range Interpretation Comme nts Neutrophils # (test code = Neutrophils #) 7.9 1.5-8.1 Basophils (test code = Basophils) 0.7 <=1.0 Eosinophils (test code = Eosinophils) 2.4 <=4.0 Monocytes (test code = Monocytes) 7.9 2.0-12.0 Lymphocytes (test code = Lymphocytes) 21.1 20.0-40.0 Segs (test code = Segs) 67.9 45.0-75.0 Basophils # (test code = Basophils #) 0.1 <=0.2 Eosinophils # (test code = Eosinophils #) 0.3 <=0.5 Monocytes # (test code = Monocytes #) 0.9 <=0.8 Lymphocytes # (test code = Lymphocytes #) 2.4 1.0-5.5 Hct (test code = Hct) 49.9 42.0-54.0 MCV (test code = MCV) 91.2 80.0-94.0 RBC (test code = RBC) 5.48 4.70-6.10 Hgb (test code = Hgb) 17.0 14.0-18.0 WBC (test code = WBC) 11.6 3.7-10.4 Platelet (test code = Platelet) 196 133-450 MPV (test code = MPV) 8.8 7.4-10.4 RDW (test code = RDW) 13.3 11.5-14.5 MCH (test code = MCH) 31.0 pg 27.0-31.0 MCHC (test code = MCHC) 34.0 32.0-36.0 [facility] [id number] 14:47:00* Test Item Value Reference Range Interpretation Comme nts Bili Direct (test code = Bili Direct) 0.1 <=0.3 [Automated [place] ge] The system which generated this result transmitted reference range: <=0.3. The reference range was not used to interpret this result as normal/abnormal. Lactic Acid Lvl (test code = Lactic Acid Lvl) 0.9 0.5-2.2 Procalcitonin Lvl (test code = Procalcitonin Lvl) 1.17 <=0.10 Magnesium Lvl (test code = Magnesium Lvl) 2.6 1.8-2.4 Amylase Lvl (test code = Amylase Lvl) 28 25-115 Ammonia (test code = Ammonia) 28.0 Phosphorus (test code = Phosphorus) 3.9 2.5-4.5 [id number]:47:00* Test Item Value Reference Range Interpretation Comme nts Chloride Lvl (test code = Chloride Lvl) 106 95-109 Calcium Lvl (test code = Calcium Lvl) 8.3 8.5-10.5 CO2 (test code = CO2) 26 24-32 Total Protein (test code = T otal Protein) 7.0 6.4-8.4 Albumin Lvl (test code = Albumin Lvl) 3.4 3.5-5.0 ALT (test code = ALT) 129 <=65 AST (test code = AST) 605 <=37 Bili Total (test code = Bili Total) 0.5 0.2-1.3 Alk Phos (test code = Alk Phos) 61 39-136 BUN (test code = BUN) 12 7-22 Glucose Lvl (test code = Glucose Lvl) 108 70-99 Potassium Lvl (test code = P otassium Lvl) 4.2 3.5-5.1 Sodium Lvl (test code = Sodium Lvl) 141 135-145 Creatinine Lvl (test code = Creatinine Lvl) 1.14 0.50-1.40 eGFR (test code = eGFR) 83 AGAP (test code = AGAP) 13.2 10.0-20.0 B/C Ratio (test code = B/C Ratio) 11 1 6-25 Globulin (test code = Globulin) 3.6 2.7-4.2 A/G Ratio (test code = A/G Ratio) 0.9 1 0.7-1.6 [facility] Notes Date/Time Note Provider Source 2025-07-23 17:47:19 Pt given printed and verbal discharge instructions regarding jaw pain, encouraged hydration. Prescriptions provided x1. Pt verbalized understanding of instructions, pt awake alert oriented, resp reg unlabored, skin w/d, color appropriate for race, moves all ext well,pt encouraged to follow up with pcp. Advised to seek medical attention for new/prolonged/worsening of symptoms. Awake, alert oriented, resp reg unlabored, skin w/d, pt leaving amb with steady gait, in no apparent distress. Nubia Gomez RN [facility] 2025-07-23 14:58:16 Patient brought in [facility] for jaw pain. Patient has been having jaw pain x1 week. No trauma. HX: drug abuse, blood clotting disorder. Jayashree Muñoz RN [facility] 2025-07-23 14:54:00 Images from the original note were not included. EMERGENCY DEPARTMENT ENCOUNTER [facility] Patient Name: Subhash Diggs Date of : 1985 40 year old Exam Room:[facility] Primary Care Physician: PATIENT DOES NOT HAVE A PCP Pre- Hospital Patient Escorted by: Self [9] Mode of Arrival: EMS - [facility] ([place] [43] EMS Treatment Prior to ED Arrival: ED Events Date/Time Event User Comments 07/23/25 1507 Medical Screening Begins SHIRLEY PATTERSON -- 07/23/25 1507 First Provider Evaluation SHIRLEY PATTERSON -- Chief Complaint Chief Complaint Patient presents with Jaw Problem ED Triage Notes Jayashree Muoñz RN 07/23/2025 14:58 Patient brought in by [facility] for jaw pain. Patient has been having jaw pain x1 week. No trauma. HX: drug abuse, blood clotting disorder. HPI History provided by: Patient Illness Location: Right jaw Severity: Moderate Onset quality: Gradual Timing: Constant Chronicity: New Relieved by: Nothing Worsened by: Nothing Associated symptoms: no abdominal pain, no chest pain, no cough, no fatigue, no fever, no headaches, no nausea, no shortness of breath, no vomiting and no wheezing Past Medical History / Immunizations Past Medical History: Diagnosis Date Deep vein thrombosis (DVT) of right lower extremity Methamphetamine use Morbid obesity Peripheral vascular disease, unspecified Stasis dermatitis Tobacco abuse Past Surgical History No past surgical history on file. Allergies No Known Allergies Social History Tobacco Use Every Day Smokeless Tobacco: Never used smokeless tobacco. Review of Systems Review of Systems Constitutional: Negative. Negative for chills, fatigue, fever and unexpected weight change. HENT: Negative. Jaw pain Eyes: Negative. Negative for discharge and itching. Respiratory: Negative. Negative for cough, chest tightness, shortness of breath and wheezing. Cardiovascular: Negative. Negative for chest pain and palpitations. Gastrointestinal: Negative. Negative for abdominal distention, abdominal pain, nausea and vomiting. Genitourinary: Negative. Negative for dysuria, urgency, frequency and flank pain. Musculoskeletal: Negative. Skin: Negative. Negative for color change, pallor and wound. Neurological: Negative. Negative for dizziness, syncope, light-headedness and headaches. Psychiatric/Behavioral: Negative. Negative for agitation and behavioral problems. All other systems reviewed and are negative. Endocrine: Endocrine negative Physical Exam ED Triage Vitals [07/23/25 1456] Weight 170.1 kg (375 lb) Actual or estimated Height 1.854 m (6' 1") BP (!) 183/99 Pulse 68 Resp 19 Temp 36.4 ?C (97.6 ?F) Temp source Oral SpO2 98 % Measured on Room air Physical Exam Vitals reviewed. Constitutional: Appearance: He is well-developed. HENT: Head: Normocephalic and atraumatic. Comments: Right jaw swelling Eyes: Conjunctiva/sclera: Conjunctivae normal. Cardiovascular: Rate and Rhythm: Normal rate and regular rhythm. Heart sounds: Normal heart sounds. Pulmonary: Effort: Pulmonary effort is normal. No respiratory distress. Breath sounds: Normal breath sounds. No stridor. No wheezing or rales. Abdominal: General: Bowel sounds are normal. There is no distension. Palpations: Abdomen is soft. Tenderness: There is no abdominal tenderness. There is no guarding or rebound. Musculoskeletal: General: Normal range of motion. Skin: General: Skin is warm and dry. Neurological: Mental Status: He is alert and oriented to person, place, and time. Cranial Nerves: No cranial nerve deficit. Sensory: No sensory deficit. Psychiatric: Behavior: Behavior normal. Labs Lab Results CBC WITH DIFF - Abnormal Result Value Ref Range WBC 11.07 (*) 4.20 - 10.70 10*3/?L RBC 5.12 4.26 - 5.52 10*6/?L HGB 15.2 12.2 - 16.4 g/dL HCT 46.2 38.4 - 49.3 % MCV 90.2 81.7 - 95.6 fL MCH 29.7 26.1 - 32.7 pg MCHC 32.9 31.2 - 35.0 g/dL RDW-SD 47.9 38.5 - 51.6 fL RDW-CV 14.5 12.1 - 15.4 % PLT 265 150 - 328 10*3/?L MPV 11.7 9.8 - 13.0 fL NRBC/100 WBC 0.0 0.0 - 10.0 /100 WBCs NRBC x10 3 <0.01 10*3/?L GRAN MAT (NEUT) % 70.8 % IMM GRAN % 0.50 % LYMPH % 19.0 % MONO % 7.0 % EOS % 2.2 % BASO % 0.5 % GRAN MAT x10 3 (ANC) 7.84 (*) 1.99 - 6.95 10*3/uL IMM GRAN x10 3 0.06 0.00 - 0.06 10*3/uL LYMPH x10 3 2.10 1.09 - 3.23 10*3/uL MONO x10 3 0.77 0.36 - 1.02 10*3/uL EOS x10 3 0.24 0.06 - 0.53 10*3/uL BASO x10 3 0.06 0.01 - 0.09 10*3/uL COMP. METABOLIC PANEL (87521) Imaging CT Maxillofacial/mandible wo contrast Final Result CT MAXILLOFACIAL/MANDIBLE WO CONTRAST HISTORY: right jaw pain COMPARISON: Prior imaging. TECHNIQUE: Nonenhanced CT scan of the face was done in multiple dimensions. FINDINGS: The facial soft tissues are unremarkable. The orbits, globes and other intraorbital structures are unremarkable. The mastoid air cells are clear. Polypoid mucoperiosteal thickening seen involving both maxillary sinuses right more than left. The other visualized paranasal sinuses are clear. The oral cavity and dentition are unremarkable. Bifid right mandibular condyle (normal variant). No significant osteoarthritic changes seen surrounding the right temporal mandibular joint. Unremarkable left temporomandibular joint. The submandibular and parotid glands are unremarkable. The visualized portions of the pharynx are unremarkable. IMPRESSION No acute abnormalities in the face. Bifid the right mandibular condyle ( rare normal variant), could be a source of jaw pain. Orders and Treatments Orders Placed This Encounter Procedures CT Maxillofacial/mandible wo contrast CBC WITH DIFF COMP. METABOLIC PANEL (69107) Orders Placed This Encounter Medications naproxen 500 mg tablet Procedures Procedures MDM Patient was evaluated for an emergency medical condition related to Jaw Problem Diagnoses considered but not limited to: TMJ syndrome Dental abscess Labs:were ordered, and resulted, any relevant abnormalities were considered. Abnormal Labs Reviewed CBC WITH DIFF - Abnormal; Notable for the following components: Result Value WBC 11.07 (*) GRAN MAT x10 3 (ANC) 7.84 (*) All other components within normal limits Imaging:This is a teaching institution and preliminary studies are read by physicians in training. A final read by a radiologist will be confirmatory of preliminary studies or may include addenda. A reasonable attempt will be made to contact the patient or family to communicate findings if necessary. Diagnosis/Impression as of 07/23/25 3597 Jaw pain Medical Decision Making Amount and/or Complexity of Data Reviewed Labs: ordered. Radiology: ordered. Risk Prescription drug management. Pulse Oximetry: is not hypoxic. Interpreted. Reassessment:stable Communication with fitness consultant: None. Limitations to patient care and compliance: none. Plan & Summary: The patient is a 40-year-old male who presents for right jaw pain. He has had the pain in his jaw for some time. CT of the max face does not demonstrate any acute abnormality. 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 The [facility] The patient was referred to [facility] as an outpatient. Subhash Diggs is a 40 year old male presenting for complaint(s) listed within the note. Patient has been deemed stable for discharge. Follow up with providers listed below for further evaluation and management. Return precautions given if symptoms worsen as documented in the discharge instructions. History, physical exam findings, results of visit, diagnosis, medication regimens and plan of future care have been considered. Additional MDM may be found in the ED course. Vital signs were rechecked before final disposition and determined to be expected for patient's clinical condition. Disposition & Follow Up ED Disposition ED Disposition Discharge Condition Stable Comment -- Patient's Medications START taking these medications NAPROXEN 500 MG TABLET Take 1 tablet by mouth in the morning and 1 tablet in the evening. Take with meals. Do all this for 10 days. CONTINUE taking these medications which have NOT CHANGED CHLORHEXIDINE 0.12 % MOUTHWASH Swish and spit out 15 mL in the morning and 15 mL in the evening. DEXTROMETHORPHAN-GUAIFENESIN 10-100 MG/5 ML SOLUTION Take 10 mL by mouth every 6 (six) hours as needed for Cough (sore throat). KETOROLAC 10 MG TABLET Take 1 tablet by mouth every 6 (six) hours as needed for Pain (scale 4-6) or Pain (scale 7-10). NAPROXEN SODIUM (ANAPROX DS) 550 MG TABLET Take 1 tablet by mouth in the morning and 1 tablet in the evening. Take with meals. TRAMADOL 50 MG TABLET Take 1 tablet by mouth every 6 hours as needed (pain). Indications: acute pain START taking Modified Medications as Prescribed No medications on file STOP taking these medications No medications on file Follow-up Information Follow up With Specialties Details Why Contact Info Pcp, Patient Does Not Have A [address] [facility] [id number] Shirley Patterson Jr., MD Clinical Hospice Case Manager [facility] Emergency Department [employer] Dictation Software is used frequently and may produce errors. Promptly contact for obvious discrepancies. Shirley Patterson MD 07/23/25 1736 [facility] 2025-07-09 17:38:18 Patient wanted to leave and did not want to stay, eloped out of ER per registration, went to check and he was not here. Eploed before dispo Tang Lafleur RN [facility] 2025-07-09 16:06:53 Pt. Presents to ED ambulatory with mother with C/O drug addiction problem; pt. Appears to be under the influence; pt. Mother reports pt. Has been talking to "invisible people & refuses to sit down;" pt. Denies SI/HI in triage; pt. Reports he takes meth and "pain pills" and last used a "few days ago;" pt. Mother reports he was seen at the [facility] yesterday and prescribed Lurasidone 40 mg; pt. Reports a long history of drug use Pt. Provided urine cup in triage Myar Bermudez RN [facility] 22:46:55 Attempted to given written instructions to patient but he was not in the lobby. Called without response. Unable to obtain new set of vital signs. Angie Camp [place] [id number] 20:21:42 Pt arrived ambulatory without assist. Pt mother with him, okay to discuss medical care in front of her. Pt c/o jaw locking and difficulty swallowing for the last couple of days. Miranda Oden [id number] 00:00:00 [facility]2025-07-07 00:00:00 [place] [address]-07-04 17:36:55 Pt given printed and verbal discharge instructions regarding chest pain and encouraged hydration. Prescription x2 sent to pharmacy Discussed ibuprofen and to take with food to avoid GI distress. Discussed antibiotic therapy and to take until all completed unless adverse reaction occurs - if occurs, discontinue medication and follow up with pcp/seek medical attention Discussed tramadol side affects and to avoid driving/operating machinery/or engaging in activities requiring alertness while taking. Pt and patients mother verbalized understanding of instructions, pt awake alert, resp reg unlabored, skin w/d, color appropriate for race, moves all ext well,pt encouraged to follow up with pcp. Advised to seek medical attention for new/prolonged/worsening of symptoms. No adverse reaction to meds given in ER noted upon discharge PIV d'cd, dressing to site, catheter in tact. Resp reg unlabored, skin w/d, pt leaving ambulatory without assist, in no apparent distress, Miranda Oden [place] [id number] 14:13:21 Patient states: Reports chest pain that started a week ago. Presents with parents who report he's having headache and neck pain as well. Pmhx: poor circulation in legs. 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 Presently resolved. No definitive aggravating or relieving factors. No SOB, sweating, falls, injuries, or fevers. They report a runny nose at night and mild cough, no medication for chest pain. Left-sided neck pain, "for a long time", no acute changes. No neuro deficits. Chronic right foot discoloration and sores. Mild oozing rrom right lateral ankle sores for two weeks. Placed a gauze dressing last night due to oozing plood. . Incident issue of single episode sharp, transient groin pain yesterday. Resolved. No prescription medications or known allergies. [employer] [employer] Assist. Patient and family aware. History provided by: Patient and parent (Mother, Father) Past Medical History/Immunizations: Past Medical History: Diagnosis Date Deep vein thrombosis (DVT) of right lower extremity Methamphetamine use Morbid obesity Peripheral vascular disease, unspecified Stasis dermatitis Tobacco abuse Tetanus received in last 5 years: No Allergies: No Known Allergies Past Social History: Tobacco Use Every Day Smokeless Tobacco: Never used smokeless tobacco. Past Surgical History: History reviewed. No pertinent surgical history. Review of Systems: Review of Systems Constitutional: Negative. Eyes: Negative. Respiratory: Negative. Cardiovascular: Positive for chest pain and leg swelling (chronic, bilateral, right > left). Gastrointestinal: Negative. Genitourinary: Negative. Musculoskeletal: Positive for neck pain (chronic left neck pain). Skin: Positive for wound. Neurological: Negative. Psychiatric/Behavioral: Negative. Physical Exam: Physical Exam Respiratory: Lungs clear to auscultation bilaterally. Musculoskeletal: No tenderness to palpation of chest. ED Triage Vitals [04/11/25 1415] Weight 136.1 kg (300 lb) Actual or estimated Estimated by patient/family report Height 1.854 m (6' 1") BP 126/87 Pulse 98 Resp 16 Temp 36.9 ?C (98.4 ?F) Temp source Oral SpO2 96 % Measured on Room air Physical Exam Vitals and nursing note reviewed. Constitutional: General: He is not in acute distress. Appearance: Normal appearance. He is obese. He is not ill-appearing, toxic-appearing or diaphoretic. HENT: Head: Normocephalic and atraumatic. Right Ear: External ear normal. Left Ear: External ear normal. Nose: Nose normal. Mouth/Throat: Mouth: Mucous membranes are moist. Eyes: Extraocular Movements: Extraocular movements intact. Conjunctiva/sclera: Conjunctivae normal. Cardiovascular: Rate and Rhythm: Normal rate and regular rhythm. Pulmonary: Effort: Pulmonary effort is normal. No respiratory distress. Breath sounds: Normal breath sounds. No wheezing, rhonchi or rales. Chest: Chest wall: No tenderness. Abdominal: General: There is no distension. Palpations: Abdomen is soft. Tenderness: There is no abdominal tenderness. There is no right CVA tenderness or left CVA tenderness. Musculoskeletal: General: No tenderness or signs of injury. Normal range of motion. Cervical back: Normal range of motion. No rigidity or tenderness. Right lower leg: Edema present. Left lower leg: Edema present. Skin: General: Skin is warm and dry. Findings: Lesion (see pictures, no oozing or bleeding in ED) and rash (see picture; chronic appearing statis dermatitis, right > left) present. Neurological: Mental Status: He is alert. Mental status is at baseline. Comments: Developmental delay type neuro features Radiology: XR Chest 2 vw Preliminary Result EXAM: XR CHEST 2 VW COMPARISON: Multiple prior studies, most recent chest radiograph 12/29/2023. TECHNIQUE: A frontal and lateral radiographs were obtained. HISTORY: chest pain FINDINGS: Lines/devices:None Lungs: The lungs are Well expanded. Mild bilateral central predominant interstitial opacities. No pleural abnormality. Heart/Mediastinum: The cardiomediastinal silhouette is unremarkable. Bones and soft tissues: No osseous lesions visualized. IMPRESSION Bilateral central predominant interstitial opacities are nonspecific and can be seen with viral/atypical infection or mild pulmonary edema. Preliminary Report Dictated by Resident: Antelmo Tinajero Lab Results: Lab Results COMP. METABOLIC PANEL (00873) - Abnormal Result Value Ref Range NA 138 135 - 145 mmol/L K 3.6 3.5 - 5.0 mmol/L CL 103 98 - 108 mmol/L CO2 TOTAL 25 23 - 31 mmol/L AGAP 10 2 - 16 BUN 22 7 - 23 mg/dL GLUCOSE 94 70 - 110 mg/dL CREATININE 0.86 0.60 - 1.25 mg/dL TOTAL BILI 1.9 (*) 0.1 - 1.1 mg/dL CALCIUM 9.2 8.6 - 10.6 mg/dL T PROTEIN 8.2 6.3 - 8.2 g/dL ALBUMIN 4.3 3.5 - 5.0 g/dL ALK PHOS 87 34 - 122 U/L ALTv 90 (*) 5 - 50 U/L AST(SGOT) 116 (*) 13 - 40 U/L eGFR 111.6 mL/min/1.73m2 N-TERMINAL PRO-BNP - Abnormal NT-proBNP 163 <=125 pg/mL LIPASE - Normal LIPASE 40 0 - 220 U/L TROPONIN I - Normal TROPONIN I 0.017 <=0.034 ng/mL CBC WITH DIFF WBC 10.42 4.20 - 10.70 10*3/?L RBC 5.20 4.26 - 5.52 10*6/?L HGB 15.7 12.2 - 16.4 g/dL HCT 46.8 38.4 - 49.3 % MCV 90.0 81.7 - 95.6 fL MCH 30.2 26.1 - 32.7 pg MCHC 33.5 31.2 - 35.0 g/dL RDW-SD 46.4 38.5 - 51.6 fL RDW-CV 14.0 12.1 - 15.4 % PLT 275 150 - 328 10*3/?L MPV 10.7 9.8 - 13.0 fL NRBC/100 WBC 0.0 0.0 - 10.0 /100 WBCs NRBC x103<0.01 10*3/?L GRAN MAT (NEUT) % 65.9 % IMM GRAN % 0.40 % LYMPH % 21.8 % MONO % 8.0 % EOS % 3.1 % BASO % 0.8 % GRAN MAT x103(ANC) 6.88 1.99 - 6.95 10*3/uL IMM GRAN x1030.04 0.00 - 0.06 10*3/uL LYMPH x1032.27 1.09 - 3.23 10*3/uL MONO x1030.83 0.36 - 1.02 10*3/uL EOS x1030.32 0.06 - 0.53 10*3/uL BASO x1030.08 0.01 - 0.09 10*3/uL EKG: If EKG completed, see Procedure Note. Orders and Treatments: Orders Placed This Encounter Procedures XR Chest 2 vw CBC WITH DIFF COMP. METABOLIC PANEL (83749) LIPASE TROPONIN I N-TERMINAL PRO-BNP Orders Placed This Encounter Medications aspirin tablet 325 mg cephALEXin 500 mg capsule traMADoL 50 mg tablet First Provider Eval: ED Events Date/Time Event User Comments 04/11/25 1410 Medical Screening Begins KELLEE MUNOZ MD -- 04/11/25 1410 First Provider Evaluation KELLEE MUNOZ MD -- ED COURSE Diagnosis/Impression as of 04/11/25 1723 Chest pain, unspecified type Stasis dermatitis of both legs Chronic neck pain Results Procedures: Procedures MDM: Assessment & Plan Initial Assessment: Chest pain for 1 week, sharp pinch in upper middle chest, intermittent, lasting a few minutes. No SOB, sweating, or fever. They report a runny nose and slight cough. Physical exam: clear lungs, no chest tenderness. Long-standing left neck pain. Right foot discoloration and oozing sores for 2 weeks. Differential Diagnosis: - Musculoskeletal pain: Sharp pinch, no associated symptoms like SOB or sweating. Physical exam: no tenderness. - Respiratory infection: Runny nose, slight cough. No fever, lungs clear. - Peripheral vascular disease: Long-standing foot discoloration, oozing sores for 2 weeks. Requires further evaluation. ED Course: - Physical exam performed. - Lungs auscultated, clear. - Chest palpation, no tenderness. Final Assessment: Chest pain likely musculoskeletal, no significant findings on physical exam. Respiratory infection considered due to runny nose and cough, no fever or significant lung findings. Peripheral vascular disease considered due to foot discoloration and sores. Clinical Impression: - Musculoskeletal pain - Respiratory infection - Peripheral vascular disease Disposition: - Discharge: Home, symptoms managed, no acute findings warranting admission. - Follow-Up: PCP for further evaluation of foot discoloration and sores, possible specialist referral. Medical Decision Making Primary impression: chest pain Secondary impression: tobacco abuse, stasis dermatitis of bilateral lower extremities with abrasion to right; chronic neck pain Differential Diagnoses, including but not limited to: electrolyte / glucose abnl, anemia, LAUREN, arrhythmia, acute coronary event Problems Addressed: Chest pain, unspecified type: acute illness or injury Chronic neck pain: chronic illness or injury Stasis dermatitis of both legs: chronic illness or injury Amount and/or Complexity of Data Reviewed Independent Historian: Details: Self, mother, father Labs: ordered. Decision-making details documented in ED Course. Radiology: ordered. Decision-making details documented in ED Course. ECG/medicine tests: ordered and independent interpretation performed. Decision-making details documented in ED Course. Risk OTC drugs. Prescription drug management. Risk Details: Findings and differential diagnosis discussed with the patient, including but not limited to heart attack. Patient with HEART score 3, low likelihood of acute coronary event. I have recommended and offered further evaluation by serial troponin examination. The patient and Mother acknowledges and understands my recommendations and clinical concerns, as well as the risks of incomplete evaluation. The patient and Mother declines hospitalization. The Mother / caregiver appears to have appropriate medical decision making capacity. Symptomatic mgmt at home. Course of antibiotics as precuation due to abrasions with right lower extremity in setting of stasis dermatitis. Flowsheet Documentation: Scoring Tools: No data recorded HEART Score: 3 Disposition/Condition: ED Disposition ED Disposition Discharge Condition Stable Comment -- Discharge Medications: Patient's Medications START taking these medications CEPHALEXIN 500 MG CAPSULE Take 1 capsule by mouth in the morning and 1 capsule at noon and 1 capsule in the evening. Do all this for 10 days. TRAMADOL 50 MG TABLET Take 1 tablet by mouth every 6 hours as needed (pain). Indications: acute pain CONTINUE taking these medications which have NOT CHANGED CHLORHEXIDINE 0.12 % MOUTHWASH Swish and spit out 15 mL in the morning and 15 mL in the evening. DEXTROMETHORPHAN-GUAIFENESIN 10-100 MG/5 ML SOLUTION Take 10 mL by mouth every 6 (six) hours as needed for Cough (sore throat). KETOROLAC 10 MG TABLET Take 1 tablet by mouth every 6 (six) hours as needed for Pain (scale 4-6) or Pain (scale 7-10). NAPROXEN SODIUM (ANAPROX DS) 550 MG TABLET Take 1 tablet by mouth in the morning and 1 tablet in the evening. Take with meals. START taking Modified Medications as Prescribed No medications on file STOP taking these medications No medications on file Follow-up: PCP Electronically signed by: Kellee Munoz MD 04/11/251722 [facility] [id number] 10:18:07 Pt given printed and verbal discharge instructions regarding sore throat, encouraged hydration. Prescriptions provided. Pt verbalized understanding of instructions, pt awake alert oriented, resp reg unlabored, skin w/d, color appropriate for race, moves all ext well, pt encouraged to follow up with pcp. Recommended patient to visit Jared Fang. Advised to seek medical attention for new/prolonged/worsening of symptoms. Symptoms addressed. No adverse reaction to meds given in ER noted upon discharge. PIV d'cd, dressing to site, catheter intact. Pt leaving amb with steady gait, in no apparent distress. [id number] 09:45:18 Made rounds on pt, he was standing on side of bed with IV pulled out on the floor. Pt allowed me to take a BP but refused to be placed back on monitor. [place] [id number] 08:58:17 Patient states he smoked meth this morning. States he last drank a 12 pack for [employer] Monday. [place] [id number] 08:18:58 Complains of soar throat and cough that started today. Denies any fever. [facility] Maria Teresa Sparks [id number] 04:32:28 PT D/C home. GCS15, VS stable. Given D/C paperwork. Pt ambulatory at time of discharge. Pt educated on med usage, follow up care, s/s worsening condition, need for hydration. Pt verbalized understanding. Pt ambulated from ED in NAD with family, Prescription x 3 sent to pharmacy. [facility]2025-01-18 04:22:50 Pt presents to ED with c/o top tooth pain. Pt states this has been going on for a "little bit" Last does of motrin around midnight. Right upper tooth pain [facility] Lelia Ornelas [id number] 03:00:00* Clinical Indication: - pneumonia; Comparison: None FINDINGS: A portable AP single view radiograph provided for review. The exam demonstrates limited decreased lung volumes with right perihilar and infrahilar patchy airspace opacities. A few reticular opacities are also noted in the left lung base. There is mild prominence of the pulmonary vasculature bilaterally, which may be artifactual and secondary to the low lung volumes. There are no significant pleural effusions or radiographic evidence of pneumothorax. The heart size is normal. The trachea is midline. There are no acute osseous abnormalities noted. IMPRESSION: 1. Low lung volumes, which may be secondary to suboptimal inspiratory effort. Resultant mild prominence of the pulmonary vasculature bilaterally may be artifactual in nature. 2. Right perihilar and infrahilar patchy airspace opacities, which may relate to infiltrates. 3. Few reticular airspace opacities in the left lung base, favored to represent atelectatic stranding. However, developing pneumonic infiltrates cannot be definitively excluded based on radiography alone. : [id number] [facility]
--- NOTE | 2025-07-28 18:07 | EDPHYS ---
Physician Documentation [facility] Name: Subhash Diggs Age: 40 yrs Sex: Male : 1985 Arrival Date: 07/28/2025 Time: 17:49 Bed DX3 Private MD: ED Physician Jason Palomares HPI: 07/28 18:07 This 40 yrs old Male presents to ER via Ambulatory with complaints of Headache, Jaw dr5 Pain. 18:07 Patient is a 40-year-old male with history of drug abuse coming in with over 6 months dr5 of jaw pain. Patient reports taking naproxen with mild relief. Patient also is seeing psychiatry for drug abuse and mental illness. Patient denies suicidal ideation. Patient reports that he has been taking ibuprofen with mild relief. Patient states that he was recently seen in [place] ER for jaw pain and had CT scan completed on jaw that revealed arthritis this week. Patient reports that he does not have insurance and is unable to get in primary care.. Historical: - Allergies: 18:01 No Known Allergies; hb - Home Meds: 18:01 none [Active]; hb - PMHx: 18:01 drug abuse; DVT; hb - PSHx: 18:01 None; hb ROS: 18:07 Constitutional: as per hpi dr5 Exam: 18:07 Constitutional: This is a well developed, well nourished patient who is awake, alert, dr5 and in no acute distress. Head/Face: Normocephalic, atraumatic. Eyes: Pupils equal round and reactive to light, extra-ocular motions intact. Lids and lashes normal. Conjunctiva and sclera are non-icteric and not injected. Cornea within normal limits. Periorbital areas with no swelling, redness, or edema. Chest/axilla: Normal chest wall appearance and motion. Nontender with no deformity. No lesions are appreciated. Cardiovascular: Regular rate and rhythm with a normal S1 and S2. Normal PMI, no JVD. No pulse deficits. Respiratory: Lungs have equal breath sounds bilaterally, clear to auscultation. No rales, rhonchi or wheezes noted. No increased work of breathing, no retractions or nasal flaring. Abdomen/GI: Soft, non-tender, non-distended Back: No spinal tenderness. No costovertebral tenderness. Full range of motion. Skin: Warm, dry with normal turgor. Normal color with no rashes, no lesions, and no evidence of cellulitis. MS/ Extremity: Pulses equal, no cyanosis. Neurovascular intact. Full, normal range of motion. Patient is speaking in full sentences. No lockjaw noted. No tenderness to palpation Vital Signs: 18:00 BP 128 / 80; Pulse 102; Resp 18; Temp 98.1; Pulse Ox 100% on R/A; Pain 10/10; hb 18:00 Pain Scale: Adult hb Weed Coma Score: 18:07 Eye Response: spontaneous(4). Motor Response: obeys commands(6). Verbal Response: dr5 oriented(5). Total: 15. MDM: 17:55 Medical Screening Exam initiated dr5 18:07 Differential diagnosis: Arthritis, lockjaw, dislocated jaw. Data reviewed: vital signs, dr5 nurses notes. Consideration of Admission/Observation Escalation of care including admission/observation considered. Escalation considered patient found to have dislocated jaw. I considered the following discharge prescriptions or medication management in the emergency department I discussed and recommended Over The Counter medications, Medications were administered in the Emergency Department. See MAR. Test considered but Not performed: CT: CT considered but patient is speaking in full sentences with full range of motion of jaw. Historians other than the Patient: Parent: Mother. Care significantly affected by the following chronic conditions: DVT. Care significantly affected by the following Social Determinants of Health: Poor access to healthcare and/or lack of insurance, Poor access to transportation, Problems related to employment. Counseling: I had a detailed discussion with the patient and/or guardian regarding the historical points, exam findings, and any diagnostic results supporting the discharge/admit diagnosis, the presence of at least one elevated blood pressure reading (>120/80) during this emergency department visit, the need for outpatient follow up, for definitive care, a family practitioner, to return to the emergency department if symptoms worsen or persist or if there are any questions or concerns that arise at home. Medication response: Dexamethasone. Response to treatment: the patient's symptoms have markedly improved after treatment. Special discussion: I discussed with the patient/guardian in detail that at this point there is no indication for admission to the hospital. It is understood, however, that if the symptoms persist or worsen the patient needs to return immediately for re-evaluation. Based on the history and exam findings, there is no indication for further emergent testing or inpatient evaluation. I discussed with the patient/guardian the need to see the primary care provider for further evaluation of the symptoms. ED course: Will give patient steroid injection in ER. Steroid Dosepak and muscle relaxers prescribed to attempt to help with pain. Recommended patient follow primary care doctor and make appoint with my CHN for further management. All question answered. Strict ER precautions given. Administered Medications: 18:14 Drug: Dexamethasone IM 10 mg IM once Route: IM; Site: right deltoid; hb Disposition Summary: 07/28/25 18:06 Discharge Ordered Notes: Location: Home dr5 Condition: Stable dr5 Diagnosis - Jaw pain dr5 - Headache dr5 Followup: dr5 - With: Private Physician - When: As needed - Reason: Worsening of condition Followup: dr5 - With: Emergency Department - When: 1 - 2 days - Reason: Recheck today's complaints, Continuance of care, Re-evaluation by your physician Discharge Instructions: - Discharge Summary Sheet dr5 - Arthritis dr5 Forms: - Medication Reconciliation Form dr5 - Prescription Opioid Use dr5 - Patient Portal Instructions dr5 - Leadership Thank You Letter dr5 Prescriptions: - Cyclobenzaprine 10 mg Oral Tablet - take 1 tablet ORAL route every 8 hours As needed; 30 tablet; Refills: 0, dr5 Product Selection Permitted - Tramadol 50 mg Oral Tablet - take 1 tablet ORAL route every 8 hours as needed; 12 tablet; Refills: 0, dr5 Product Selection Permitted - Medrol (Gonzalo) 4 mg Oral Tablets, Dose Pack - take 1 tablet ORAL route as directed - follow package instructions; 1 packet; dr5 Refills: 0, Product Selection Permitted Signatures: Shannon Ledesma, RN RN Gelacio Bryan, ZEKE-C DOCUMENT SCANNER-Cdr5
--- NOTE | 2025-07-28 18:07 | ER ---
Nurse's Notes [facility] Name: Subhash Diggs Age: 40 yrs Sex: Male : 1985 Arrival Date: 07/28/2025 Time: 17:49 Bed DX3 Private MD: Diagnosis: Jaw pain;Headache Presentation: 07/28 18:00 Chief complaint: Worsening bilateral jaw pain and headache x few months. Coronavirus hb screen: At this time, the client does not indicate any symptoms associated with coronavirus-19. Ebola Screen: No symptoms or risks identified at this time. Initial Sepsis Screen: Does the patient meet any 2 criteria? No. Patient's initial sepsis screen is negative. Does the patient have a suspected source of infection? No. Patient's initial sepsis screen is negative. Risk Assessment: Do you want to hurt yourself or someone else? Patient reports no desire to harm self or others. Onset of symptoms was May 2025. 18:00 Method Of Arrival: Ambulatory hb 18:00 Acuity: TRISTON 4 hb Triage Assessment: 18:00 Headache History: Denies prior headaches. General: Appears uncomfortable, Behavior is hb calm, cooperative. Pain: Pain currently is 10 out of 10 on a pain scale. Neuro: GCS15. Cardiovascular: Patient's skin is warm and dry. Respiratory: Respiratory effort is even, unlabored, Respiratory pattern is regular, symmetrical. Historical: - Allergies: 18:01 No Known Allergies; hb - Home Meds: 18:01 none [Active]; hb - PMHx: 18:01 drug abuse; DVT; hb - PSHx: 18:01 None; hb Vital Signs: 18:00 BP 128 / 80; Pulse 102; Resp 18; Temp 98.1; Pulse Ox 100% on R/A; Pain 10/10; hb 18:00 Pain Scale: Adult hb Bonifay Coma Score: 18:07 Eye Response: spontaneous(4). Motor Response: obeys commands(6). Verbal Response: dr5 oriented(5). Total: 15. ED Course: 17:53 Patient arrived in ED. im 17:54 Gelacio Sandoval FNP-C [facility]. [facility] 17:54 Jason Palomares MD is Attending Physician. dr5 18:01 Triage completed. hb 18:02 Arm band placed on. hb Administered Medications: 18:14 Drug: Dexamethasone IM 10 mg IM once Route: IM; Site: right deltoid; hb Outcome: 18:06 Discharge ordered by . dr5 18:15 Discharged to home ambulatory, with family, hb 18:15 Condition: stable 18:15 Discharge instructions given to patient, family, Instructed on discharge instructions, follow up and referral plans. medication usage, Demonstrated understanding of instructions, follow-up care, medications, Prescriptions given X 3, 18:16 Patient left the ED. hb Signatures: Shannon Ledesma RN RN hb Aleena Sandoval Dustin, BABYSITTER-C BABYSITTER-Cdr5 Corrections: (The following items were deleted from the chart) 18:03 18:00 Acuity: TRISTON 3 hb hb
[2025-07-29 00:23] VITALS: BP 128/80; TEMP 98.1; O2SAT 100
== END 2025-07-28 18:16 | disposition home or self-care (01) ==
LOC: ER 17:49
DX: R68.84 Jaw pain (principal); R51.9 Headache, unspecified
CPT/HCPCS: 96372; 99284; J1100